=== PATIENT | female | born 1945 | race Asian ===

== ENCOUNTER 2017-04-06 17:01 | Emergency (ER) | payer OTHER ==
[2017-04-06 17:29] VITALS: BP 136/85; PULSE 90; TEMP 98.6; BMI 33.4
[2017-04-06 18:24] LABS: BASOPHIL 0.4 % (0-2.0); EOSINOPHIL 2.2 % (0-4.5); MCH 24.9 pg (25.7-33.7); MCHC 30.8 g/dl (32.0-36.0); MEAN CELL VOLUME 80.9 fl (80-96); MEAN PLT VOLUME 8.4 fl (7.5-11.1); NEUTROPHILS 71.5 % (42.8-82.8); PLATELET COUNT 179 K/MM3 (134-434); RDW 14.4 % (11.6-15.6); WHITE BLOOD COUNT 9.8 K/mm3 (4.0-10.0)
--- NOTE | 2017-04-06 18:25 | PDOC ---
Attending Attestation - Resident Resident Name: Aryan Carlos - ED Attending Attestation I have performed the following: I have examined & evaluated the patient, The case was reviewed & discussed with the resident, I agree w/resident's findings & plan, Exceptions are as noted
--- NOTE | 2017-04-06 18:33 | PDOC ---
History of Present Illness - General Chief Complaint: Syncope/Near Syncope Stated Complaint: SYNCOPE Time Seen by Provider: 04/06/17 17:37 History Source: Patient, Family - History of Present Illness Initial Comments: 04/06/17 18:27 The patient is a 72F with a PMH of CAD s/p stent in 2003, HTN, HLD, DM, and asthma who presents via EMS after a syncopal episode while at the mall earlier today. The patient states that she was shopping and felt lightheaded, then does not recall falling but does recall being woken up. There was no aura before the syncopal episode and she was oriented when she was woken up. SHe states that the only thing she felt was lightheaded. THe patient has not eaten all day except for a very small breakfast. The family states that the patient has been weak for 1 week and fatigued. Her last fall was in 2012. She is not on blood thinners and had LOC+. Surgeries: stent in 2003 ALlergies: NKDA Social: does not smoke, drink, or use recreational drugs Past History - Past Medical History Allergies/Adverse Reactions: Allergies Allergy/AdvReac Type Severity Reaction Status Date / Time No Known Allergies Allergy Verified 04/06/17 17:21 Home Medications: Ambulatory Orders Aspirin [ASA -] 81 mg PO DAILY 12/26/13 Cyanocobalamin [Vitamin B12 -] 2,000 mcg PO DAILY 12/26/13 Metformin HCl [Glucophage] 1,000 mg PO BID 12/26/13 Metoprolol Tartrate [Lopressor -] 25 mg PO DAILY 12/26/13 Ranolazine [Ranexa -] 1,000 mg PO BID 12/26/13 Glipizide 5 mg PO HS 09/04/14 Atorvastatin Ca [Lipitor] 40 mg PO HS #30 tablet 06/29/16 Gabapentin [Neurontin] 0 mg PO ASDIR 06/29/16 Gabapentin [Neurontin] 100 mg PO HS 06/29/16 Glipizide 10 mg PO DAILY 06/29/16 Lisinopril [Zestril] 2.5 mg PO DAILY #30 tablet 06/29/16 Anemia: No Asthma: No Cancer: No Cardiac Disorders: Yes (STENT: 2008) CVA: No COPD: No CHF: No Dementia: No Diabetes: Yes GI Disorders: No Disorders: No HTN: Yes Hypercholesterolemia: Yes Liver Disease: No Seizures: No Thyroid Disease: No - Surgical History Abdominal Surgery: Yes Appendectomy: No Cardiac Surgery: Yes (STENT: 2009) Cholecystectomy: No Lung Surgery: No Neurologic Surgery: No Orthopedic Surgery: No - Psycho/Social/Smoking Cessation Hx Anxiety: No Suicidal Ideation: No Smoking Status: No Smoking History: Never smoked Have you smoked in the past 12 months: No Number of Cigarettes Smoked Daily: 0 Hx Alcohol Use: No Drug/Substance Use Hx: No Substance Use Type: None Hx Substance Use Treatment: No Review of Systems - Review of Systems Able to Perform ROS?: Yes Is the patient limited Gibraltarian proficient: No Constitutional: Yes: Loss of Appetite, Weakness. No: Chills, Fever HEENTM: No: Eye Pain, Blurred Vision, Double Vision Respiratory: No: Shortness of Breath Cardiac (ROS): Yes: Lightheadedness, Syncope. No: Chest Pain ABD/GI: No: Nausea, Vomiting, Other (abd pain) Neurological: Yes: Headache, Weakness. No: Numbness, Tingling *Physical Exam - Vital Signs Last Vital Signs Temp Pulse Resp BP Pulse Ox 98.6 F 90 20 136/85 95 04/06/17 17:21 04/06/17 17:21 04/06/17 17:21 04/06/17 17:21 04/06/17 17:21 - Physical Exam General Appearance: Yes: Nourished, Appropriately Dressed. No: Apparent Distress HEENT: positive: Normal Voice, Hearing Grossly Normal. negative: Pharyngeal Erythema, Tonsillar Exudate, Tonsillar Erythema, Hearing Decreased, Excessive drooling Neck: positive: Trachea midline Respiratory/Chest: positive: Lungs Clear, Normal Breath Sounds. negative: Chest Tender, Respiratory Distress, Accessory Muscle Use Cardiovascular: positive: Regular Rhythm, Regular Rate, S1, S2 Gastrointestinal/Abdominal: positive: Flat, Soft. negative: Tender, Tenderness Extremity: positive: Normal Capillary Refill, Normal Inspection Neurologic: positive: client technologies analyst II-XII NML intact, Fully Oriented, Alert, Normal Mood/ Affect, Normal Response, Motor Strength 5/5, Responsive, Finger to Nose. negative: Numbness, Sensory Deficit, Confused, Disoriented ED Treatment Course - LABORATORY CBC & Chemistry Diagram: 04/06/17 18:08 04/06/17 18:08 Medical Decision Making - Medical Decision Making 04/06/17 18:40 The patient is a 72F with a PMH of CAD s/p 1 stent in 2003, HTN, HLD, DM, and asthma who presents s/p syncopal episode. On the differential is ACS, arrhythmias, intracranial bleeds. My attending has ordered labs and imaging. I will update the patient as results come in. 04/06/17 19:22 Patient signed out to night team (Dr. Soriano).
[2017-04-06 18:49] LABS: INR 0.99 (0.82-1.09); PROTHROMBIN TIME (PATIENT) 10.9 SEC (9.98-11.88)
[2017-04-06 18:56] LABS: ALBUMIN 3.4 g/dl (3.4-5.0); ANION GAP 7 (8-16); BILIRUBIN,TOTAL 0.3 mg/dL (0.2-1.0); CO2 32 mmol/L (21-32); CREATININE 0.6 mg/dL (0.55-1.02); GLUCOSE,RANDOM 150 mg/dL (74-106); SGOT/AST 11 U/L (15-37); SGPT/ALT 15 U/L (12-78); TOT PROT 6.8 g/dl (6.4-8.2)
[2017-04-06 18:59] LABS: ALK PHOS 82 U/L (45-117); TROPONIN I < 0.02 ng/ml (0.00-0.05)
--- NOTE | 2017-04-06 20:36 | PDOC ---
*Physical Exam - Vital Signs Last Vital Signs Temp Pulse Resp BP Pulse Ox 98.6 F 90 20 136/85 95 04/06/17 17:21 04/06/17 17:21 04/06/17 17:21 04/06/17 17:21 04/06/17 17:21 <Nai Lubin - Last Filed: 04/06/17 21:14> - Vital Signs Last Vital Signs Temp Pulse Resp BP Pulse Ox 98.6 F 90 20 136/85 95 04/06/17 17:21 04/06/17 17:21 04/06/17 17:21 04/06/17 17:21 04/06/17 17:21 - Physical Exam Comments: 04/06/17 21:45 General Appearance: Nourished. No Apparent Distress HEENT: No Pharyngeal Erythema, Tonsillar Exudate, Tonsillar Erythema Respiratory/Chest: Lungs Clear, Normal Breath Sounds. No Crackles, Rales, Rhonchi, Wheezing Cardiovascular: Regular Rhythm, Regular Rate. No Murmur, Gallop/S3, Gallop/S4 Gastrointestinal/Abdominal: Normal Bowel Sounds, Soft. No Guarding, Rebound, Tenderness Extremity: Normal Capillary Refill Integumentary: Normal Color, Dry, Warm Neurologic: Fully Oriented, Alert, Normal Mood/Affect, Normal Response <Korey Soriano - Last Filed: 04/06/17 23:29> ED Treatment Course - LABORATORY CBC & Chemistry Diagram: 04/06/17 18:08 04/06/17 18:08 - ADDITIONAL ORDERS Additional order review: Laboratory Results 04/06/17 04/06/17 04/06/17 18:40 18:08 18:08 INR 0.99 Sodium 141 Potassium 3.9 Chloride 102 Carbon Dioxide 32 Anion Gap 7 L BUN 11 D Creatinine 0.6 Creat Clearance w eGFR > 60 POC Glucometer 170.31132 Random Glucose 150 H D Calcium 9.0 Total Bilirubin 0.3 AST 11 L D ALT 15 Alkaline Phosphatase 82 D Creatine Kinase 46 Troponin I < 0.02 Total Protein 6.8 Albumin 3.4 04/06/17 04/06/17 18:40 18:08 RBC 4.92 MCV 80.9 MCHC 30.8 L RDW 14.4 MPV 8.4 Neutrophils % 71.5 Lymphocytes % 21.5 Monocytes % 4.4 Eosinophils % 2.2 Basophils % 0.4 POC Glucometer [phone] - RADIOLOGY Radiology Studies Ordered: Category Date Time Status FACIAL BONES CT W/O CONTRAST [CT] Stat CT Scan 04/06/17 19:[address] WITHOUT CONTRAST [CT] Stat CT Scan 04/06/17 19:55 Completed KNEE 2 POS-LEFT [RAD] Stat Radiology 04/06/17 20:53 Ordered <Nai Lubin - Last Filed: 04/06/17 21:14> - LABORATORY CBC & Chemistry Diagram: 04/06/17 18:08 04/06/17 18:08 - ADDITIONAL ORDERS Additional order review: Laboratory Results 04/06/17 04/06/17 04/06/17 18:40 18:08 18:08 INR 0.99 Sodium 141 Potassium 3.9 Chloride 102 Carbon Dioxide 32 Anion Gap 7 L BUN 11 D Creatinine 0.6 Creat Clearance w eGFR > 60 POC Glucometer 170.86628 Random Glucose 150 H D Calcium 9.0 Total Bilirubin 0.3 AST 11 L D ALT 15 Alkaline Phosphatase 82 D Creatine Kinase 46 Troponin I < 0.02 Total Protein 6.8 Albumin 3.4 04/06/17 04/06/17 18:40 18:08 RBC 4.92 MCV 80.9 MCHC 30.8 L RDW 14.4 MPV 8.4 Neutrophils % 71.5 Lymphocytes % 21.5 Monocytes % 4.4 Eosinophils % 2.2 Basophils % 0.4 POC Glucometer 170.36654 <Korey Soriano - Last Filed: 04/06/17 23:29> Progress Note - Progress Note Progress Note: Received sign out from Dr. Carlos. Patient is a 72 year old female who presents following a near syncopal episode. Patient was out shopping when the patient had the near syncopal episode with a fall to the left knee and face. The patient reports no loss of consciousness and states that she had not eat most of the day. Laboratory work up has been negative thus far and no new changes on EKG. We will follow up on CT head, CT facial, and knee radiograph. <Korey Soriano - Last Filed: 04/06/17 23:29> Medical Decision Making - Medical Decision Making 04/06/17 21:14 Pt seen by myself; we received her on signout. Pt had a near-syncope at the mall today. She went out in a heat wave, and likely strained herself. Her daughter confirms that she was alert and oriented throughout the episode. Pt has DM that is well controlled. HTN is controlled and cholesterol is well maintained with meds. Pt is overweight, and she gets SOB with exertion. No increased SOB or CP today. She had twinges of right sided CP earlier in the week. So far labs are normal, EKG same as old and normal. CXR shows cardiomegaly, but clear lungs. No flank pain and no fever. Pt appears well. She is feeling better. Knee XR pending, 2nd cardiac enzyme pending. <Nai Lubin - Last Filed: 04/06/17 21:14> - Medical Decision Making 04/06/17 21:[address] head and CT facial have been read as unremarkable by the radiologist. We will obtain a second troponin to further rule out ACS. 04/06/17 23:26 Patient's second troponin is negative and preliminary read on knee radiographs demonstrate no acute fractures.We discussed the results with the family and are comfortable discharging the patient home. The patient is agreeable with the plan. <Korey Soriano - Last Filed: 04/06/17 23:29> *DC/Admit/Observation/Transfer <Nai Lubin - Last Filed: 04/06/17 21:14> - Attestations Physician Attestion: 04/06/17 23:26 I, Dr. Korey Soriano, attest that this document has been prepared under my direction and personally reviewed by me in its entirety. I further attest, that it accurately reflects all work, treatment, procedures and medical decision -making performed by me. <Korey Soriano - Last Filed: 04/06/17 23:29> Diagnosis at time of Disposition: Syncope, near - Discharge Dispostion Disposition: HOME Condition at time of disposition: Improved - Referrals Referrals: Yolanda Fajardo MD [Primary Care Provider] - - Patient Instructions Printed Discharge Instructions: DI for Syncope in Adults (Fainting) Additional Instructions: Please return to the ER if you experience concerning or worsening symptoms. Please follow up with your primary care provider to discuss your ER visit. - Post Discharge Activity
[2017-04-06 23:09] LABS: TROPONIN I < 0.02 ng/ml (0.00-0.05)
--- NOTE | 2017-04-09 09:36 | EKG ---
Test Reason : Blood Pressure : / mmHG Vent. Rate : 084 BPM Atrial Rate : 084 BPM P-R Int : 136 ms QRS Dur : 080 ms QT Int : 382 ms P-R-T Axes : 053 009 036 degrees QTc Int : 451 ms NORMAL SINUS RHYTHM NONSPECIFIC ST AND T WAVE ABNORMALITY ABNORMAL ECG WHEN COMPARED WITH ECG OF 29-JUN-2016 08:35, NONSPECIFIC T WAVE ABNORMALITY NOW EVIDENT IN INFERIOR LEADS Confirmed by VANCE HENRIQUEZ, CHRISTIANO ([id number]) on 04/09/2017 9:36:00 AM Referred By: Confirmed By:CHRISTIANO WOODARD MD
== END 2017-04-06 23:48 | disposition home or self-care (01) ==
LOC: JER 17:01
DX: R55 Syncope and collapse (principal)
CPT/HCPCS: 36415; 70450-TC; 70486-TC; 71020-TC; 73560-TC-LT; 80053; 82550; 84484; 85025; 85610; 93005; 93010; 99283-25

== ENCOUNTER 2018-01-12 14:50 | Inpatient (IN) | payer OTHER ==
--- NOTE | 2018-01-12 15:11 | PDOC ---
History of Present Illness - General Chief Complaint: Shortness of Breath Stated Complaint: DIFF. BREATHING Time Seen by Provider: 01/12/18 15:04 - History of Present Illness Initial Comments: 01/12/18 15:11 Patient is a 72 year old female with a PMH of CAD (s/p stent), HTN, HLD, NIDDM and asthma who presents to our ED c/o worsening shortness of breath and cough. Patient states she has been having intermittently productive (whitish sputum) cough for 2-3 weeks with some dyspnea on exertion for 2-3 months. Endorses associated pleuritic chest pain. Patient returned from a trip to [facility] today and daughter brought her to ED for evaluation. As per EMR, patient evaluated in 03/2017 for pre-syncope at which time cardiac enzymes were negative and ECG showed no arrythymia Past History - Past Medical History Allergies/Adverse Reactions: Allergies Allergy/AdvReac Type Severity Reaction Status Date / Time No Known Allergies Allergy Verified 01/12/18 14:54 Home Medications: Ambulatory Orders Albuterol Sulfate Inhaler - [Ventolin HFA Inhaler -] 2 inh PO BID 01/14/18 Glipizide 5 mg PO DAILY 01/14/18 Glipizide 10 mg PO DAILY 01/14/18 Metoprolol Succinate [Toprol Xl] 25 mg PO DAILY 01/14/18 Ranolazine [Ranexa] 500 mg PO Q12H 01/14/18 Albuterol 0.083% Nebulizer Cony [Ventolin 0.083% Nebulizer Soln -] 1 neb NEB Q4H #60 vial 01/17/18 Albuterol 0.083% Nebulizer Cony [Ventolin 0.083% Nebulizer Soln -] 1 neb NEB Q4H #60 vial 01/17/18 Aspirin [ASA -] 81 mg PO DAILY #30 tab.chew 01/17/18 Atorvastatin Ca [Lipitor] 40 mg PO HS #30 tablet 01/17/18 Docusate Sodium [Colace -] 100 mg PO TID capsule 01/17/18 Insulin Detemir [Levemir Flextouch] 15 unit SQ ACBK #30 insuln.pen 01/17/18 Miscellaneous Medical Supply [Outpatient Order] 1 each ASDIR #1 misc Montelukast Na [Singulair -] 10 mg PO HS #30 tablet 01/17/18 Prednisone 40 mg PO DAILY #16 tablet 01/17/18 Anemia: No Asthma: No Cancer: No Cardiac Disorders: Yes (STENT: 2008) CVA: No COPD: No CHF: No Dementia: No Diabetes: Yes GI Disorders: No Disorders: No HTN: Yes Hypercholesterolemia: Yes Liver Disease: No Seizures: No Thyroid Disease: No - Surgical History Abdominal Surgery: Yes Appendectomy: No Cardiac Surgery: Yes (STENT: 2008) Cholecystectomy: No Lung Surgery: No Neurologic Surgery: No Orthopedic Surgery: No - Suicide/Smoking/Psychosocial Hx Smoking Status: No Smoking History: Never smoked Have you smoked in the past 12 months: No Number of Cigarettes Smoked Daily: 0 Hx Alcohol Use: No Drug/Substance Use Hx: No Substance Use Type: None Hx Substance Use Treatment: No Review of Systems - Review of Systems Constitutional: No: Chills, Fever HEENTM: No: Recent change in vision Respiratory: Yes: Shortness of Breath, Productive cough Cardiac (ROS): No: Lightheadedness, Palpitations, Syncope ABD/GI: No: Constipated, Diarrhea, Nausea, Vomiting : No: Burning, Dysuria *Physical Exam - Vital Signs Last Vital Signs Temp Pulse Resp BP Pulse Ox 98.4 F 94 H 24 142/48 92 L 01/12/18 14:54 01/12/18 14:54 01/12/18 14:54 01/12/18 14:54 01/12/18 14:54 - Physical Exam Comments: 01/12/18 16:26 GENERAL: The patient is in no acute distress. EYES: PERRLA, EOMI, sclera anicteric, conjunctiva clear. ENT: Ears normal, nares patent, oropharynx clear without exudates. Moist mucous membranes. NECK: Normal range of motion, supple without lymphadenopathy, JVD, or masses. LUNGS: Insp and Expiratory wheezing noted, exp rhonchi HEART: Regular rate and rhythm, normal S1 and S2 without murmur, rub or gallop. ABDOMEN: Soft, nontender EXTREMITIES: Bilateral lower extremity edema, RLE pitting edema SKIN: Warm, Dry, normal turgor, no rashes or lesions noted. ED Treatment Course - LABORATORY CBC & Chemistry Diagram: 01/17/18 05:35 01/17/18 05:35 Medical Decision Making - Medical Decision Making 01/12/18 16:59 72 year old female presents with hypoxia, cough and progressively worsening AVERY. H/o recent extended air travel. Fluid overloaded and hypoxic on PE. Frontal diagnosis: r/o PE, r/o ACS, pleural effusion, PNA, bronchitis. Will obtain CTA chest, basic labs, ECG, Troponin. Reassess. 01/12/18 17:49 BNP 1400 (250 in 2016). Will consider presumptive treat for PE w/Lovenox while pending CTA pending CXR showing no pleural effusion ECG shows NSR HR 84, no deviations, normal intervals, with TWI in V1-V3, no TERESSA/ STD, c/w previous ECG of 2016. 01/12/18 17:49 Troponin (-) x1. Patient remains SpO2 > 95% on 2 L NC. 01/12/18 20:45 CT negative for PE. Patient remains SpO2 > 95% on 2 L NC. Steroids + Mg. Hospitalist paged for admission for acute asthma exacerbation. *DC/Admit/Observation/Transfer Diagnosis at time of Disposition: Shortness of breath - Discharge Dispostion Condition at time of disposition: Good - Prescriptions - Referrals - Patient Instructions - Post Discharge Activity
[2018-01-12] MEDS ORDERED: ALBUTEROL SO4 2.5/IPRATROPIUM 0.5 INH SOL 3 ML VIAL.NEB. NEB ONE ×3 (15:22→17:47)
--- NOTE | 2018-01-12 15:51 | PDOC ---
Attending Attestation - Resident Resident Name: Anita Cartagenaica - ED Attending Attestation I have performed the following: I have examined & evaluated the patient, The case was reviewed & discussed with the resident, I agree w/resident's findings & plan, Exceptions are as noted - HPI HPI: 01/12/18 15:45 Ms Gutiérrez is a 72 yo F with a history of hx CAD s/p stent 2004, HTN, HL, DM, h/ o asthma (per chart) Pt presents to the ER with a complaint of shortness of breath Pt returned from her trip to [place] today She notes shortness of breath, dyspnea on exertion, left-sided chest pain. Symptoms began prior to her [place] [facility] [place] She denies fevers or chills. She denies sputum production. She denies nausea, vomiting, diarrhea. - Physicial Exam PE: 01/12/18 15:47 GENERAL: The patient is in no acute distress. EYES: PERRLA, EOMI, sclera anicteric, conjunctiva clear. ENT: Ears normal, nares patent, oropharynx clear without exudates. Moist mucous membranes. NECK: Normal range of motion, supple without lymphadenopathy, JVD, or masses. LUNGS: Insp and Expiratory wheezing noted, exp rhonchi HEART: Regular rate and rhythm, normal S1 and S2 without murmur, rub or gallop. ABDOMEN: Soft, nontender EXTREMITIES: Bilateral lower extremity edema, RLE pitting edema NEUROLOGICAL: Cranial nerves II through XII grossly intact. Normal speech. No focal neurological deficits. MUSCULOSKELETAL: Back non-tender to palpation SKIN: Warm, Dry, normal turgor, no rashes or lesions noted. - Medical Decision Making 01/12/18 15:49 Ms Gutiérrez presents emergency department with a complaint of shortness of breath. Vital signs are notable for O2 saturation of 93%. She just got off an airplane from [facility] Differential diagnosis includes but is not limited to: PE, Pneumonia, Bronchitis with Bronchospasm, Asthma exacerbation, CHF Will do: Labs EKG CTA Pt receiving nebs, will continue as she states this has helped her signed out to Dr Rosas Anticipate admission
[2018-01-12 16:17] LABS: BASO % 0.4 % (0-2.0); EOS % 2.6 % (0-4.5); HEMATOCRIT 35.4 % (32.4-45.2); HEMOGLOBIN 11.3 GM/dL (10.7-15.3); LYMPH % 23.8 % (8-40); MCH 25.4 pg (25.7-33.7); MCHC 32.1 g/dl (32.0-36.0); MEAN PLT VOLUME 8.7 fl (7.5-11.1); MONO % 7.7 % (3.8-10.2); NEUT % 65.5 % (42.8-82.8); PLATELET COUNT 164 K/MM3 (134-434); RBC 4.47 M/mm3 (3.60-5.2)
[2018-01-12] MEDS ORDERED: ACETAMINOPHEN 1000 MG/100 ML VIAL (NON FORMULARY) IVPB ONE (16:17)
[2018-01-12] MEDS ORDERED: ACETAMINOPHEN INJECTION 100 ML IVPB ONE (16:32)
[2018-01-12 17:38] LABS: ANION GAP 5 (8-16); BILIRUBIN,TOTAL 0.5 mg/dL (0.2-1.0); BLOOD UREA NITROGEN 14 mg/dL (7-18); CALCIUM 7.9 mg/dL (8.5-10.1); CHLORIDE 101 mmol/L (98-107); CO2 32 mmol/L (21-32); CREATININE 0.6 mg/dL (0.55-1.02); GLUCOSE,RANDOM 279 mg/dL (74-106); POTASSIUM 3.8 mmol/L (3.5-5.1); SGOT/AST 16 U/L (15-37); SGPT/ALT 31 U/L (12-78); SODIUM 138 mmol/L (136-145); TOT PROT 6.3 g/dl (6.4-8.2)
[2018-01-12 17:40] LABS: ALK PHOS 85 U/L (45-117)
[2018-01-12] MEDS ORDERED: MAGNESIUM SULF 50% (8.12 MEQ/2 ML-1 GM VIAL) IVPB ONE (20:44)
[2018-01-12] MEDS ORDERED: methylPREDNISolone NA SUCC 125 MG/2 ML VIAL IVPUSH ONE (20:44)
--- NOTE | 2018-01-12 20:53 | PN ---
Teaching Attending Note Name of Resident: Heydi Root ATTENDING PHYSICIAN STATEMENT I saw and evaluated the patient. I reviewed the resident's note and discussed the case with the resident. I agree with the resident's findings and plan as documented. SUBJECTIVE: 72 y/o F presented with SOB and wheezing, PMH of asthma and recent travel to [place]. In ED PE r/o with CTA OBJECTIVE: Alert and oriented times 3 in mild distress HEENT: NC, PERRLA, EOMI, MMM CVS: RRR, S1, S2, no JVD LUNGS: B/l wheezes and bibasilar crepitation Abd: obese, nontender, BS+ Ext: nl rom, 2+ pulse. CBCD WBC 8.0 K/mm3 (4.0-10.0) 01/12/18 16:09 RBC 4.47 M/mm3 (3.60-5.2) 01/12/18 16:09 Hgb 11.3 GM/dL (10.7-15.3) 01/12/18 16:09 Hct 35.4 % (32.4-45.2) 01/12/18 16:09 MCV 79.0 fl (80-96) L 01/12/18 16:09 MCHC 32.1 g/dl (32.0-36.0) 01/12/18 16:09 RDW 16.0 % (11.6-15.6) H D 01/12/18 16:09 Plt Count 164 K/MM3 (134-434) 01/12/18 16:09 MPV 8.7 fl (7.5-11.1) 01/12/18 16:09 CMP Sodium 138 mmol/L (136-145) 01/12/18 16:57 Potassium 3.8 mmol/L (3.5-5.1) 01/12/18 16:57 Chloride 101 mmol/L (98-107) 01/12/18 16:57 Carbon Dioxide 32 mmol/L (21-32) 01/12/18 16:57 Anion Gap 5 (8-16) L 01/12/18 16:57 BUN 14 mg/dL (7-18) 01/12/18 16:57 Creatinine 0.6 mg/dL (0.55-1.02) 01/12/18 16:57 Creat Clearance w eGFR > 60 (>60) 01/12/18 16:57 Random Glucose 279 mg/dL (74-106) H 01/12/18 16:57 Calcium 7.9 mg/dL (8.5-10.1) L 01/12/18 16:57 Total Bilirubin 0.5 mg/dL (0.2-1.0) D 01/12/18 16:57 AST 16 U/L (15-37) 01/12/18 16:57 ALT 31 U/L (12-78) 01/12/18 16:57 Alkaline Phosphatase 85 U/L (45-117) 01/12/18 16:57 Total Protein 6.3 g/dl (6.4-8.2) L 01/12/18 16:57 Albumin 3.0 g/dl (3.4-5.0) L 01/12/18 16:57 CARDIAC ENZYMES Creatine Kinase 55 IU/L (26-192) 01/12/18 16:57 Troponin I 0.04 ng/ml (0.00-0.05) 01/12/18 16:57 ASSESSMENT AND PLAN: Dyspnea and cough, admitted for acute asthma exacerbation with new onset CHF. PF 140. Daily peak flow, nebs q6h, solumedrol 40mg h6h amd continue home medication. Get ECHO, and give lasix 40mg stat, lipid panel. Monitor I&Os. cardiac diet. Problem List - Problems (1) Asthma Code(s): J45.909 - UNSPECIFIED ASTHMA, UNCOMPLICATED (2) CHF (congestive heart failure) Code(s): I50.9 - HEART FAILURE, UNSPECIFIED
[2018-01-12] MEDS ORDERED: MAGNESIUM SULF 50% (8.12 MEQ/2 ML-1 GM VIAL) ONE (21:48)
[2018-01-12] MEDS ORDERED: methylPREDNISolone NA SUCC 125 MG/2 ML VIAL ONE (21:54)
[2018-01-12] MEDS ORDERED: ALBUTEROL SO4 0.083% IH SOL 2.5 MG/3 ML VIAL.NEB. NEB PRN (22:18)
--- NOTE | 2018-01-12 22:32 | HP ---
Addendum entered and electronically signed by Ravi Quezada, RESIDENT 01/13/18 06:04: Ct angio was negative for pe Addendum entered and electronically signed by Ravi Quezada, RESIDENT 01/13/18 00:56: Daughter called back to confirm the list of medications. Please give a call to pharmacy to double confirm the list of medication as it looks like some medications are missing and daughter was not sure if she taking lisinopril and statin. Metoprolol succinate 25 daily Glipizide 10mg in morning and 5mg in evening Metformin 1000mg bid ranexa 50mg bid aspirin 81 Original Note: CHIEF COMPLAINT: sob HISTORY OF PRESENT ILLNESS: 72 y/o f with past medical h/o asthma and cad came to hospital because of sob. patient states that she has noticed sob, wheezing and cough from last two week which is progressively increasing. before able to walk 1 block but from 2 days only 5 feet, denies orthopnea, paroxysmal nocturnal dyspnea, has reported mild increse in swelling in legs. States wheezing has also increased in last two days. Reports cough has also increased in last two days, produces white phlem, no fever, no chills, no chest pain. States she is complaint with her inhalers and has used it many times in last 2 days but it didn't help. Also report asthma exabration last year for which she was admitted in hospital, has no pets, not allergic to any thing. Patient states that today she came back from [facility] [place]. ER course was notable for: (1)cbc, cmp, bnp (2)CTA chest (3) Recent Travel: yes, [facility] PAST MEDICAL HISTORY: HTN, HLD, NIDDM,asthma, cad PAST SURGICAL HISTORY: hystrectomy 6 years ago Social History: Smoking: no Alcohol: no Drugs: no Family History: not relevant Allergies No Known Allergies Allergy (Verified 01/12/18 14:54) HOME MEDICATIONS: Home Medications Medication Instructions Recorded Aspirin [ASA -] 81 mg PO DAILY 12/26/13 Cyanocobalamin [Vitamin B12 -] 2,000 mcg PO DAILY 12/26/13 Metformin HCl [Glucophage] 1,000 mg PO BID 12/26/13 Metoprolol Tartrate [Lopressor -] 25 mg PO DAILY 12/26/13 Ranolazine [Ranexa -] 1,000 mg PO BID 12/26/13 Glipizide 5 mg PO HS 09/04/14 Atorvastatin Ca [Lipitor] 40 mg PO HS #30 tablet 06/29/16 Gabapentin [Neurontin] 0 mg PO ASDIR 06/29/16 Gabapentin [Neurontin] 100 mg PO HS 06/29/16 Glipizide 10 mg PO DAILY 06/29/16 Lisinopril [Zestril] 2.5 mg PO DAILY #30 tablet 06/29/16 REVIEW OF SYSTEMS CONSTITUTIONAL: Absent: fever, chills, diaphoresis, generalized weakness, malaise, loss of appetite, weight change HEENT: Absent: rhinorrhea, nasal congestion, throat pain, throat swelling, difficulty swallowing, mouth swelling, ear pain, eye pain, visual changes CARDIOVASCULAR: Absent: chest pain, syncope, palpitations, irregular heart rate, lightheadedness , peripheral edema RESPIRATORY: Absent: cough, shortness of breath, dyspnea with exertion, orthopnea, wheezing, stridor, hemoptysis GASTROINTESTINAL: Absent: abdominal pain, abdominal distension, nausea, vomiting, diarrhea, constipation, melena, hematochezia GENITOURINARY: Absent: dysuria, frequency, urgency, hesitancy, hematuria, flank pain, genital pain MUSCULOSKELETAL: Absent: myalgia, arthralgia, joint swelling, back pain, neck pain SKIN: Absent: rash, itching, pallor HEMATOLOGIC/IMMUNOLOGIC: Absent: easy bleeding, easy bruising, lymphadenopathy, frequent infections ENDOCRINE: Absent: unexplained weight gain, unexplained weight loss, heat intolerance, cold intolerance NEUROLOGIC: Absent: headache, focal weakness or paresthesias, dizziness, unsteady gait, seizure, mental status changes, bladder or bowel incontinence PSYCHIATRIC: Absent: anxiety, depression, suicidal or homicidal ideation, hallucinations. PHYSICAL EXAMINATION Vital Signs - 24 hr 01/12/18 01/12/18 01/12/18 14:54 15:35 22:12 Temperature 98.4 F 98.0 F Pulse Rate 94 H 82 Pulse Rate [ 85 Apical] Respiratory 24 16 Rate Blood Pressure 142/48 Blood Pressure 120/78 [Left Arm] O2 Sat by Pulse 92 L 98 98 Oximetry (%) 01/12/18 01/12/18 22:14 22:15 Temperature 98.0 F Pulse Rate 90 Pulse Rate [ 81 Apical] Respiratory 16 Rate Blood Pressure Blood Pressure 120/72 [Left Arm] O2 Sat by Pulse 99 95 Oximetry (%) GENERAL: Awake, alert, and fully oriented, in no acute distress. HEAD: Normal with no signs of trauma. EARS, NOSE, THROAT: Moist mucous membranes. NECK: Normal range of motion, supple without lymphadenopathy, JVD, or masses. LUNGS: Breath sounds equal,b/l diffuse wheez, b/l diffuse inspiratory crackels HEART: Regular rate and rhythm, normal S1 and S2 ABDOMEN: Soft, nontender, not distended, normoactive bowel sounds, no guarding, no rebound, no masses. MUSCULOSKELETAL: Normal range of motion at all joints. No bony deformities or tenderness. UPPER EXTREMITIES: 2+ pulses, warm, well-perfused. No cyanosis. No clubbing. No peripheral edema. LOWER EXTREMITIES: No calf tenderness. peripheral edema present NEUROLOGICAL: Cranial nerves II-XII intact. PSYCHIATRIC: Cooperative. SKIN: Warm, dry, Laboratory Results - last 24 hr 01/12/18 01/12/18 01/12/18 16:09 16:09 16:09 WBC 8.0 RBC 4.47 Hgb 11.3 Hct 35.4 MCV 79.0 L MCH 25.4 L MCHC 32.1 RDW 16.0 H D Plt Count 164 MPV 8.7 Neutrophils % 65.5 Lymphocytes % 23.8 Monocytes % 7.7 Eosinophils % 2.6 Basophils % 0.4 Sodium Cancelled Potassium Cancelled Chloride Cancelled Carbon Dioxide Cancelled Anion Gap Cancelled BUN Cancelled Creatinine Cancelled Creat Clearance w eGFR Cancelled Random Glucose Cancelled Calcium Cancelled Total Bilirubin Cancelled AST Cancelled ALT Cancelled Alkaline Phosphatase Cancelled Creatine Kinase Cancelled Troponin I Cancelled B-Natriuretic Peptide Cancelled Total Protein Cancelled Albumin Cancelled 01/12/18 01/12/18 16:57 16:57 WBC RBC Hgb Hct MCV MCH MCHC RDW Plt Count MPV Neutrophils % Lymphocytes % Monocytes % Eosinophils % Basophils % Sodium 138 Potassium 3.8 Chloride 101 Carbon Dioxide 32 Anion Gap 5 L BUN 14 Creatinine 0.6 Creat Clearance w eGFR > 60 Random Glucose 279 H Calcium 7.9 L Total Bilirubin 0.5 D AST 16 ALT 31 Alkaline Phosphatase 85 Creatine Kinase 55 Troponin I 0.04 B-Natriuretic Peptide 1400.12 H Total Protein 6.3 L Albumin 3.0 L ASSESSMENT/PLAN: 72 y/o f with past medical h/o asthma and cad came to hospital because of sob. Shortness of breath likely from [place] exabration and chf. patient has diffuse wheeze, inspiratory crackels b/l diffuse, pitting edema, moist tongue, h/o cad with elevated bnp, gained 30 pounds since march 2017. duoneb q6h albuterol q4h prn soulmedrol 60 q8h montelucast 10mg daily got mag in er. echo lasix 40iv daily daily weight I/O monitor low salt diet. cardio and pulm consult. HTN start home meds HLD start home meds DM bgm novalog sliding scale h/o CAD continue aspirin 81 daILY FLUID: orally allowed electrolyte: in am nutrition low salt diet dvt pro: heparin sq gi pro not required tried calling [id number] it was closed. Daughter states that she will go home and give us a list of medications. dispo: admit tele Visit type - Emergency Visit Emergency Visit: Yes Care time: The patient presented to the Emergency Department on the above date and was hospitalized for further evaluation of their emergent condition. - New Patient This patient is new to me today: Yes Date on this admission: 01/12/18 - Critical Care Critical Care patient: No
[2018-01-12] MEDS: ALBUTEROL SO4 2.5/IPRATROPIUM 0.5 INH SOL 3 ML VIAL.NEB. NEB SCH (23:14)
[2018-01-13 01:27] VITALS: BMI 39.4
[2018-01-13] MEDS: methylPREDNISolone NA SUCC 125 MG/2 ML VIAL IVPUSH SCH ×3 (01:44→18:46)
[2018-01-13] MEDS: HEPARIN NA (PORCINE) 5,000 UNITS/ML 1ML VIAL SQ SCH ×3 (06:50→21:08)
[2018-01-13] MEDS: INSULIN SLIDING SCALE (NOVOLOG) 1 VIAL SQ SCH ×4 (07:11→21:08)
[2018-01-13 07:26] LABS: BASO % 0.1 % (0-2.0); EOS % 0.1 % (0-4.5); HEMATOCRIT 34.8 % (32.4-45.2); HEMOGLOBIN 11.1 GM/dL (10.7-15.3); LYMPH % 10.6 % (8-40); MCH 25.5 pg (25.7-33.7); MCHC 31.8 g/dl (32.0-36.0); MEAN PLT VOLUME 8.4 fl (7.5-11.1); MONO % 1.3 % (3.8-10.2); NEUT % 87.9 % (42.8-82.8); PLATELET COUNT 171 K/MM3 (134-434); RBC 4.35 M/mm3 (3.60-5.2); RDW 15.9 % (11.6-15.6); WHITE BLOOD COUNT 6.9 K/mm3 (4.0-10.0)
[2018-01-13 07:55] LABS: CHLORIDE 98 mmol/L (98-107); POTASSIUM 5.3 mmol/L (3.5-5.1); SODIUM 135 mmol/L (136-145)
[2018-01-13 08:04] LABS: ALK PHOS 102 U/L (45-117); ANION GAP 6 (8-16); BILIRUBIN,TOTAL 0.6 mg/dL (0.2-1.0); BLOOD UREA NITROGEN 16 mg/dL (7-18); CALCIUM 8.2 mg/dL (8.5-10.1); CHOLESTEROL 149 mg/dL (50-200); CO2 31 mmol/L (21-32); CREATININE 0.7 mg/dL (0.55-1.02); HDL CHOLESTEROL 48 mg/dL (40-60); MAGNESIUM 2.5 mg/dL (1.8-2.4); PHOSPHOROUS 4.5 mg/dL (2.5-4.9); SGOT/AST 26 U/L (15-37); SGPT/ALT 42 U/L (12-78); TOT PROT 6.7 g/dl (6.4-8.2); TRIGLYCERIDES 91 mg/dL (35-160)
[2018-01-13] MEDS: ALBUTEROL SO4 2.5/IPRATROPIUM 0.5 INH SOL 3 ML VIAL.NEB. NEB SCH ×4 (08:36→20:16)
[2018-01-13] MEDS: RANOLAZINE E.R. 500 MG TABLET (FP) PO SCH ×2 (09:07→21:08)
[2018-01-13] MEDS: metoPROLOL SUCCINATE 25 MG TAB.SR.24H (FP) PO SCH (09:07)
[2018-01-13] MEDS: ASPIRIN 81 MG CHEWABLE TABLETS PO SCH (09:07)
[2018-01-13] MEDS: FUROSEMIDE 40 MG/4 ML INJECTABLE VIAL IVPUSH SCH (09:07)
--- NOTE | 2018-01-13 09:18 | EKG ---
Test Reason : Blood Pressure : / mmHG Vent. Rate : 083 BPM Atrial Rate : 083 BPM P-R Int : 130 ms QRS Dur : 078 ms QT Int : 392 ms P-R-T Axes : 045 007 019 degrees QTc Int : 460 ms NORMAL SINUS RHYTHM NONSPECIFIC T WAVE ABNORMALITY ABNORMAL ECG WHEN COMPARED WITH ECG OF 06-APR-2017 18:25, NO SIGNIFICANT CHANGE WAS FOUND Confirmed by CHRISTIANO WOODARD MD ([id number]) on 01/13/2018 9:17:52 AM Referred By: Confirmed By:CHRISTIANO WOODARD MD
[2018-01-13] MEDS ORDERED: LISINOPRIL 5 MG TABLET (FP) PO SCH (10:00)
[2018-01-13] MEDS ORDERED: METOPROLOL TARTRATE 25 MG TABLET (FP) PO SCH (10:00)
[2018-01-13] MEDS ORDERED: FUROSEMIDE 40 MG/4 ML INJECTABLE VIAL IVPUSH SCH (10:00)
[2018-01-13 10:11] LABS: GLUCOSE,RANDOM 449 mg/dL (74-106)
--- NOTE | 2018-01-13 11:26 | CON.PULM ---
Consult Consult Specialty:: PULMONARY Referred by:: Dr. Hurt Reason for Consultation:: shortness of breath - History of Present Illness Chief Complaint: shortness of breath History of Present Illness: 72yo female with h/o HTN, DM, hyperlipidemia, CAD, asthma who was admitted with worsening shortness of breath x 4-5 days. Recently came back from a trip. Some chest discomfort associated with coughing and wheezing. +cough mostly nonproductive. No fevers, chills or sweats. No sick contacts. Asthma normally well controlled. Takes Symbicort as needed, does not take it every day. She is a never smoker. Has never been hospitalized for asthma. CTA chest was done in the ER which did not show any evidence of PE. - History Source History Provided By: Patient, Medical Record Limitations to Obtaining History: Language Barrier - Past Medical History Cardio/Vascular: Yes: HTN, Hyperlipdemia Pulmonary: Yes: Other (?hx asthma) Psych: Yes: Anxiety Musculoskeletal: Yes: Chronic low back pain Endocrine: Yes: Diabetes Mellitus - Alcohol/Substance Use Hx Alcohol Use: No - Smoking History Smoking history: Never smoked Have you smoked in the past 12 months: No Aproximately how many cigarettes per day: 0 Home Medications - Allergies Allergies/Adverse Reactions: Allergies Allergy/AdvReac Type Severity Reaction Status Date / Time No Known Allergies Allergy Verified 01/12/18 14:54 Review of Systems - Review of Systems Constitutional: denies: Chills, Fever Eyes: denies: Recent Change in Vision HENT: denies: Nasal Congestion, Throat Pain Neck: denies: Stiffness, Tenderness Cardiovascular: reports: Chest Pain, Shortness of Breath. denies: Edema, Palpitations Respiratory: reports: Cough, SOB on Exertion, Wheezing. denies: Hemoptysis Gastrointestinal: denies: Abdominal Pain, Nausea, Vomiting Genitourinary: denies: Dysuria, Hematuria Neurological: denies: Dizziness, Headache Endocrine: denies: Unexplained Weight Gain, Unexplained Weight Loss Physical Exam Vital Sings: Vital Signs Temperature 97.6 F 01/13/18 07:57 Pulse Rate 86 01/13/18 07:57 Respiratory Rate 20 01/13/18 08:00 Blood Pressure 134/75 01/13/18 07:57 O2 Sat by Pulse Oximetry (%) 95 01/13/18 08:00 Constitutional: Yes: Calm Eyes: Yes: Conjunctiva Clear, EOM Intact HENT: Yes: Atraumatic, Normocephalic Neck: Yes: Supple, Trachea Midline Cardiovascular: Yes: Regular Rate and Rhythm Respiratory: Yes: Poor Air Entry, Rhonchi, Wheezes ...Clubbing: No Gastrointestinal: Yes: Normal Bowel Sounds, Soft. No: Tenderness Edema: No Neurological: Yes: Alert, Oriented Labs: CBC, BMP 01/13/18 07:04 01/13/18 07:04 Imaging - Results Chest X-ray: Report Reviewed, Image Reviewed Cat Scan: Report Reviewed, Image Reviewed (no infiltrates) Problem List - Problems (1) Acute asthma exacerbation Code(s): J45.901 - UNSPECIFIED ASTHMA WITH (ACUTE) EXACERBATION (2) Diabetes Code(s): E11.9 - TYPE 2 DIABETES MELLITUS WITHOUT COMPLICATIONS (3) HTN (hypertension) Code(s): I10 - ESSENTIAL (PRIMARY) HYPERTENSION (4) Hyperlipidemia Code(s): E78.5 - HYPERLIPIDEMIA, UNSPECIFIED Assessment/Plan Acute Asthma Exacerbation CAD HTN DM Hyperlipidemia - IV medrol - inhaled bronchodilators standing and PRN - singulair - monitor peak flow - glucose control while on systemic steroids - O2 as needed - DVT prophylaxis Thank you for this consult Pal Oneil MD
--- NOTE | 2018-01-13 12:32 | CON.CARD ---
Consult Consult Specialty:: Cardiology Referred by:: Yolanda Fajardo MD Reason for Consultation:: CAD post PCI - History of Present Illness Chief Complaint: Dyspnea History of Present Illness: Coverage for Dr. Chaidez: Reason for Consultation:: chest pain; hx CAD--coronary PCI; DM 72yo female with h/o HTN, DM, hyperlipidemia, CAD s/p stent x1, asthma, morbid obesity admitted with worsening shortness of breath x 4-5 days associated with chest discomfort associated with coughing and wheezing. +cough mostly nonproductive, but denies angina. No fevers, chills or sweats. No sick contacts. Asthma normally well controlled. Takes Symbicort as needed, does not take it every day. She is a never smoker. Has never been hospitalized for asthma. CTA chest was done in the ER which did not show any evidence of PE, feels improved with nebulizer treatment. ; - History Source History Provided By: Patient Limitations to Obtaining History: No Limitations - Past Medical History Cardio/Vascular: Yes: HTN, Hyperlipdemia Pulmonary: Yes: Other (?hx asthma) Psych: Yes: Anxiety Musculoskeletal: Yes: Chronic low back pain Endocrine: Yes: Diabetes Mellitus - Alcohol/Substance Use Hx Alcohol Use: No - Smoking History Smoking history: Never smoked Have you smoked in the past 12 months: No Aproximately how many cigarettes per day: 0 Home Medications - Allergies Allergies/Adverse Reactions: Allergies Allergy/AdvReac Type Severity Reaction Status Date / Time No Known Allergies Allergy Verified 01/12/18 14:54 Review of Systems - Review of Systems Cardiovascular: reports: Chest Pain, Shortness of Breath Respiratory: reports: Wheezing Vital Signs: Vital Signs Temperature 97.6 F 01/13/18 07:57 Pulse Rate 86 01/13/18 07:57 Respiratory Rate 20 01/13/18 08:00 Blood Pressure 134/75 01/13/18 07:57 O2 Sat by Pulse Oximetry (%) 95 01/13/18 08:00 Constitutional: Yes: No Distress, Calm Neck: Yes: Supple Respiratory: Yes: Regular, Diminished, On Nasal O2 Gastrointestinal: Yes: Normal Bowel Sounds, Soft, Abdomen, Obese Cardiovascular: Yes: Regular Rate and Rhythm JVD: No Carotid Bruit: No Heart Sounds: Yes: S1, S2 Edema: No - Other Data Labs, Other Data: CBC, BMP 01/13/18 07:04 01/13/18 07:04 Troponin, BNP 01/12/18 01/12/18 01/12/18 16:09 16:09 16:57 Troponin I Cancelled B-Natriuretic Peptide Cancelled 1400.12 H 01/12/18 16:57 Troponin I 0.04 B-Natriuretic Peptide Troponin, BNP 01/12/18 01/12/18 01/12/18 16:09 16:09 16:57 Troponin I Cancelled B-Natriuretic Peptide Cancelled 1400.12 H 01/12/18 16:57 Troponin I 0.04 B-Natriuretic Peptide NSR @ 83 Ejection Fraction %: LVEF > or = 40 % Imaging - Results Chest X-ray: Report Reviewed (NAD) Cat Scan: Report Reviewed (Chest CTA - Neg for PE) Problem List - Problems (1) Acute asthma exacerbation Code(s): J45.901 - UNSPECIFIED ASTHMA WITH (ACUTE) EXACERBATION Qualifiers: Asthma severity: moderate (2) CHF (congestive heart failure) Code(s): I50.9 - HEART FAILURE, UNSPECIFIED Qualifiers: Heart failure type: diastolic Heart failure chronicity: acute on chronic Qualified Code(s): I50.33 - Acute on chronic diastolic (congestive) heart failure (3) Atypical chest pain Code(s): R07.89 - OTHER CHEST PAIN (4) Diabetes Code(s): E11.9 - TYPE 2 DIABETES MELLITUS WITHOUT COMPLICATIONS Qualifiers: Diabetes mellitus type: type 2 (5) HTN (hypertension) Code(s): I10 - ESSENTIAL (PRIMARY) HYPERTENSION Qualifiers: Hypertension type: essential hypertension Qualified Code(s): I10 - Essential (primary) hypertension (6) Hyperlipidemia Code(s): E78.5 - HYPERLIPIDEMIA, UNSPECIFIED Qualifiers: Hyperlipidemia type: pure hypercholesterolemia Qualified Code(s): E78.00 - Pure hypercholesterolemia, unspecified; E78.0 - Pure hypercholesterolemia (7) Obese Code(s): E66.9 - OBESITY, UNSPECIFIED Assessment/Plan 06/29/2016 Echo: Normal biventricular size and fxn, mild TR 06/29/2016 Nuc Stress: No ischemia, LVEF 82% 1. Acute Asthma Exacerbation with atypical chest pain 2. CAD s/p PCI (stent), angina pectoris 3. HTN 4. DM not at goal control 5. Hyperlipidemia 6. Diastolic dysfunction 7. Hyperkalemia P:1. IV medrol, inhaled bronchodilators standing and PRN, singulair, monitor peak flow, O2 as needed, 2. Continue ASA 81 qd, Lipitor 40 qd, Ranexa 500 bid, Toprol XL 25 qd, ideally resume lisinopril for renovascular protection once hyperkalemia resolves 3. Diuresis with monitor diuretic response, renal function and electrolytes 4. F/u echocardiogram ordered 5. Thank you for consultative opportunity
--- NOTE | 2018-01-13 14:52 | PN ---
Teaching Attending Note Name of Resident: Abner Hurt SUBJECTIVE: Patient seen and examined. Breathing with some improvement. no recent URI like illness, leg swelling or weight gain. Rather reports weight loss. OBJECTIVE: Vital Signs Period Temp Pulse Resp BP Sys/Fong Pulse Ox Last 24 Hr 97.6 F-98.7 F 81-90 16-20 120-142/59-78 95-99 Intake & Output 01/10/18 01/11/18 01/12/18 01/13/18 23:59 23:59 23:59 23:59 Intake Total 10 Balance 10 Weight 188 lb 12.8 oz General: sitting in bed in mild respiratory distress, no use of acessory muscles of respiration CVS;S1S2 regular Chest; bilateral extensive wheezing, decreased air entry Abdomen:soft, obese, NT Extremities: no pedal edema Active Medications Generic Name Dose Route Start Last Admin Trade Name Freq PRN Reason Stop Dose Admin Albuterol Sulfate 1 amp 01/12/18 22:18 Ventolin 0.083% Nebulizer Soln - NEB Q4H PRN ASTHMA Albuterol/Ipratropium 1 amp 01/12/18 22:30 01/13/18 11:54 Duoneb - NEB 1 amp RQID STEVEN Administration Aspirin 81 mg 01/13/18 10:00 01/13/18 09:07 Asa - PO 81 mg DAILY STEVEN Administration Atorvastatin Calcium 40 mg 01/13/18 22:00 Lipitor - PO HS STEVEN Furosemide 40 mg 01/12/18 22:21 01/13/18 09:07 Lasix Injection - IVPUSH 40 mg DAILY STEVEN Administration Heparin Sodium (Porcine) 5,000 unit 01/13/18 06:00 01/13/18 14:49 Heparin - SQ 5,000 unit TID STEVEN Administration Insulin Aspart 1 vial 01/13/18 07:00 01/13/18 11:58 Novolog Vial Sliding Scale - SQ 12 units ACHS STEVEN Administration Protocol Insulin Aspart 6 units 01/13/18 15:00 Novolog Vial SQ 01/13/18 15:01 ONCE ONE Protocol Insulin Detemir 10 units 01/13/18 15:01 Levemir Vial SQ 01/13/18 15:02 ONCE ONE Insulin Detemir 15 units 01/14/18 07:00 Levemir Vial SQ ACBK STEVEN Methylprednisolone Sodium Succinate 60 mg 01/13/18 02:00 04/29/18 09:06 Solu-Medrol - IVPUSH 60 mg Q8H-IV STEVEN Administration Metoprolol Succinate 25 mg 01/13/18 10:00 01/13/18 09:07 Toprol Xl - PO 25 mg DAILY STEVEN Administration Montelukast Sodium 10 mg 01/13/18 22:00 Singulair - PO HS STEVEN Ranolazine 500 mg 01/13/18 10:00 01/13/18 09:07 Ranexa - PO 500 mg BID STEVEN Administration Sodium Polystyrene Sulfonate 15 gm 01/13/18 14:40 Kayexalate - PO 01/13/18 14:41 ONCE ONE Laboratory Results - last 24 hr 01/12/18 01/12/18 01/12/18 16:09 16:09 16:09 WBC 8.0 RBC 4.47 Hgb 11.3 Hct 35.4 MCV 79.0 L MCH 25.4 L MCHC 32.1 RDW 16.0 H D Plt Count 164 MPV 8.7 Neutrophils % 65.5 Lymphocytes % 23.8 Monocytes % 7.7 Eosinophils % 2.6 Basophils % 0.4 Sodium Cancelled Potassium Cancelled Chloride Cancelled Carbon Dioxide Cancelled Anion Gap Cancelled BUN Cancelled Creatinine Cancelled Creat Clearance w eGFR Cancelled POC Glucometer Random Glucose Cancelled Hemoglobin A1c % Calcium Cancelled Phosphorus Magnesium Total Bilirubin Cancelled AST Cancelled ALT Cancelled Alkaline Phosphatase Cancelled Creatine Kinase Cancelled Troponin I Cancelled B-Natriuretic Peptide Cancelled Total Protein Cancelled Albumin Cancelled Triglycerides Cholesterol Total LDL Cholesterol HDL Cholesterol 01/12/18 01/12/18 01/13/18 16:57 16:57 06:38 WBC RBC Hgb Hct MCV MCH MCHC RDW Plt Count MPV Neutrophils % Lymphocytes % Monocytes % Eosinophils % Basophils % Sodium 138 Potassium 3.8 Chloride 101 Carbon Dioxide 32 Anion Gap 5 L BUN 14 Creatinine 0.6 Creat Clearance w eGFR > 60 POC Glucometer 423 Random Glucose 279 H Hemoglobin A1c % Calcium 7.9 L Phosphorus Magnesium Total Bilirubin 0.5 D AST 16 ALT 31 Alkaline Phosphatase 85 Creatine Kinase 55 Troponin I 0.04 B-Natriuretic Peptide 1400.12 H Total Protein 6.3 L Albumin 3.0 L Triglycerides Cholesterol Total LDL Cholesterol HDL Cholesterol 01/13/18 01/13/18 01/13/18 07:04 07:04 07:04 WBC 6.9 RBC 4.35 Hgb 11.1 Hct 34.8 MCV 80.0 MCH 25.5 L MCHC 31.8 L RDW 15.9 H Plt Count 171 MPV 8.4 Neutrophils % 87.9 H D Lymphocytes % 10.6 D Monocytes % 1.3 L D Eosinophils % 0.1 D Basophils % 0.1 Sodium 135 L Potassium 5.3 H Chloride 98 Carbon Dioxide 31 Anion Gap 6 L BUN 16 Creatinine 0.7 Creat Clearance w eGFR > 60 POC Glucometer Random Glucose 449 H* Hemoglobin A1c % 9.6 H Calcium 8.2 L Phosphorus 4.5 Magnesium 2.5 H Total Bilirubin 0.6 AST 26 ALT 42 Alkaline Phosphatase 102 Creatine Kinase Troponin I B-Natriuretic Peptide Total Protein 6.7 Albumin 3.0 L Triglycerides 91 Cholesterol 149 Total LDL Cholesterol 92 HDL Cholesterol 48 ASSESSMENT AND PLAN: 72 yof with PMhx of Asthma, CAd s/p PCI, no prior h/o CHF, NIDDM, HLD admitted with dyspnea, hypoxia, recently returned from [place] after an 8 hour flight, . -Acute asthma exacerbation -Acute ?Systolic vs diastolic HF exacerbation -Acute hypoxia, from above -Severe hyperglycemia, likely from poorly controlled DM compounded by high dose steroids -Hyperkalemia -HTN -HLD -CAD s/p PCI PLan: Solumedrol 60 mg IV q8h, standing and prn nebs. No clinical or radiographic evidence of PNA. lasix 40 mg IV daily. Strict I/Os, daily weights, follow up 2D echo. Cardiology/pulmonary input appreciated. CTA chest neg for PE. ISS, levemir 10 units x 1 today, start 15 units in AM. A1c 9.2, poor control. Levemir for now till steroids tapered. Resume oral hypoglycemics vs home d/c on insulin based on clinical course. Kayexalate x 1, Aggressive treat hyperglycemia and monitor for now. Hold ACei. Continue ASA/statin/Ranexa/Metoprolol. DVTPPX with heparin Dispo pending resolution of medical issues. Plan discussed with patient in detail, all questions answered.
[2018-01-13] MEDS ORDERED: INSULIN (NOVOLOG) ASPART 100 UNITS/ML 10ML VIAL SQ ONE ×2 (15:30→21:15)
[2018-01-13] MEDS ORDERED: INSULIN (LEVEMIR) 100 UNITS/ML UNITS SQ ONE (15:30)
[2018-01-13] MEDS ORDERED: SODIUM POLYSTYRENE SULFONATE 15 GM/60 ML BOTTLE PO ONE (16:00)
[2018-01-13] MEDS ORDERED: glipiZIDE 5 MG TABLET (FP) PO SCH (16:30)
[2018-01-13] MEDS: ATORVASTATIN CA 40 MG TABLET (FP) PO SCH (21:08)
[2018-01-13] MEDS: MONTELUKAST NA 10 MG TABLET PO SCH (21:08)
[2018-01-13 21:52] LABS: ANION GAP 5 (8-16); BLOOD UREA NITROGEN 21 mg/dL (7-18); CALCIUM 7.8 mg/dL (8.5-10.1); CHLORIDE 96 mmol/L (98-107); CO2 33 mmol/L (21-32); CREATININE 0.9 mg/dL (0.55-1.02); POTASSIUM 4.2 mmol/L (3.5-5.1); SODIUM 134 mmol/L (136-145)
[2018-01-13 21:56] LABS: GLUCOSE,RANDOM 573 mg/dL (74-106)
[2018-01-14] MEDS: guaiFENesin/D-M SUGAR-FREE/ACLHOL-FREE 118 ML BOTTLE PO PRN ×3 (02:08→13:35)
[2018-01-14] MEDS: methylPREDNISolone NA SUCC 125 MG/2 ML VIAL IVPUSH SCH ×2 (02:08→10:17)
[2018-01-14] MEDS: INSULIN SLIDING SCALE (NOVOLOG) 1 VIAL SQ SCH ×2 (06:24→17:43)
[2018-01-14] MEDS: INSULIN (LEVEMIR) 100 UNITS/ML UNITS SQ SCH (06:24)
[2018-01-14] MEDS: HEPARIN NA (PORCINE) 5,000 UNITS/ML 1ML VIAL SQ SCH ×3 (06:24→21:22)
[2018-01-14 06:53] LABS: BASO % 0.1 % (0-2.0); HEMATOCRIT 34.3 % (32.4-45.2); HEMOGLOBIN 10.9 GM/dL (10.7-15.3); MCHC 31.8 g/dl (32.0-36.0); MEAN CELL VOLUME 78.8 fl (80-96); MEAN PLT VOLUME 8.4 fl (7.5-11.1); MONO % 1.8 % (3.8-10.2); NEUT % 86.1 % (42.8-82.8); PLATELET COUNT 194 K/MM3 (134-434); RBC 4.35 M/mm3 (3.60-5.2); RDW 15.3 % (11.6-15.6); WHITE BLOOD COUNT 9.9 K/mm3 (4.0-10.0)
[2018-01-14 07:19] LABS: ALBUMIN 2.9 g/dl (3.4-5.0); ANION GAP 7 (8-16); BLOOD UREA NITROGEN 20 mg/dL (7-18); CALCIUM 8.5 mg/dL (8.5-10.1); CHLORIDE 96 mmol/L (98-107); CO2 36 mmol/L (21-32); CREATININE 0.7 mg/dL (0.55-1.02); MAGNESIUM 2.4 mg/dL (1.8-2.4); POTASSIUM 4.4 mmol/L (3.5-5.1); SGOT/AST 13 U/L (15-37); SGPT/ALT 35 U/L (12-78); SODIUM 139 mmol/L (136-145)
[2018-01-14 07:23] LABS: ALK PHOS 88 U/L (45-117); BILIRUBIN,TOTAL 0.6 mg/dL (0.2-1.0); TOT PROT 6.4 g/dl (6.4-8.2)
[2018-01-14] MEDS: ALBUTEROL SO4 2.5/IPRATROPIUM 0.5 INH SOL 3 ML VIAL.NEB. NEB SCH ×4 (07:40→20:29)
[2018-01-14 07:44] LABS: GLUCOSE,RANDOM 362 mg/dL (74-106)
--- NOTE | 2018-01-14 08:06 | PN ---
Teaching Attending Note Name of Resident: Gage Eddy ATTENDING PHYSICIAN STATEMENT I saw and evaluated the patient. I reviewed the resident's note and discussed the case with the resident. I agree with the resident's findings and plan as documented with exceptions below. SUBJECTIVE: Patient seen and examined. Breathing improved, short of breath when ambulates to the bathroom. no chest pain. positive cough. OBJECTIVE: Vital Signs Period Temp Pulse Resp BP Sys/Fong Pulse Ox Last 24 Hr 97.3 F-98.1 F 72-86 18-20 114-148/54-72 95 Intake & Output 01/11/18 01/12/18 01/13/18 01/14/18 23:59 23:59 23:59 23:59 Intake Total 160 Balance 160 Weight 188 lb 12.8 oz 188 lb 5 oz 193 lb 2 oz General: lying in bed, comfortable Chest: improved wheezing and air entry, no rales appreciated Abdomen: soft, obese, NT extremities: trace pedal edema Active Medications Generic Name Dose Route Start Last Admin Trade Name Freq PRN Reason Stop Dose Admin Albuterol Sulfate 1 amp 01/12/18 22:18 Ventolin 0.083% Nebulizer Soln - NEB Q4H PRN ASTHMA Albuterol/Ipratropium 1 amp 01/12/18 22:30 01/13/18 20:16 Duoneb - NEB 1 amp RQID STEVEN Administration Aspirin 81 mg 01/13/18 10:00 01/13/18 09:07 Asa - PO 81 mg DAILY STEVEN Administration Atorvastatin Calcium 40 mg 01/13/18 22:00 01/13/18 21:08 Lipitor - PO 40 mg HS STEVEN Administration Furosemide 40 mg 01/12/18 22:21 01/13/18 09:07 Lasix Injection - IVPUSH 40 mg DAILY STEVEN Administration Glipizide 10 mg 01/15/18 07:00 Glucotrol - PO DAILY@0700 STEVEN Glipizide 5 mg 01/14/18 16:30 Glucotrol - PO DAILY@1630 STEVEN Guaifenesin 5 ml 01/13/18 22:39 01/14/18 06:24 Diabetic Tussin Dm - PO 5 ml Q4H PRN Administration COUGH Heparin Sodium (Porcine) 5,000 unit 01/13/18 06:00 01/14/18 06:24 Heparin - SQ 5,000 unit TID STEVEN Administration Insulin Aspart 1 vial 01/13/18 07:00 01/14/18 06:24 Novolog Vial Sliding Scale - SQ 12 units ACHS STEVEN Administration Protocol Insulin Detemir 15 units 01/14/18 07:00 01/14/18 06:24 Levemir Vial SQ 15 unit ACBK STEVEN Administration Methylprednisolone Sodium Succinate 60 mg 01/13/18 02:00 01/14/18 02:08 Solu-Medrol - IVPUSH 60 mg Q8H-IV STEVEN Administration Metoprolol Succinate 25 mg 01/13/18 10:00 01/13/18 09:07 Toprol Xl - PO 25 mg DAILY STEVEN Administration Montelukast Sodium 10 mg 01/13/18 22:00 01/13/18 21:08 Singulair - PO 10 mg HS STEVEN Administration Ranolazine 500 mg 01/13/18 10:00 01/13/18 21:08 Ranexa - PO 500 mg BID STEVEN Administration Laboratory Results - last 24 hr 01/13/18 01/13/18 01/13/18 06:38 07:04 07:04 WBC RBC Hgb Hct MCV MCH MCHC RDW Plt Count MPV Neutrophils % Lymphocytes % Monocytes % Eosinophils % Basophils % Sodium 135 L Potassium 5.3 H Chloride 98 Carbon Dioxide 31 Anion Gap 6 L BUN 16 Creatinine 0.7 Creat Clearance w eGFR > 60 POC Glucometer 423 Random Glucose 449 H* Hemoglobin A1c % 9.6 H Calcium 8.2 L Phosphorus 4.5 Magnesium 2.5 H Total Bilirubin 0.6 AST 26 ALT 42 Alkaline Phosphatase 102 Total Protein 6.7 Albumin 3.0 L Triglycerides 91 Cholesterol 149 Total LDL Cholesterol 92 HDL Cholesterol 48 01/13/18 01/14/18 01/14/18 21:10 02:14 05:54 WBC RBC Hgb Hct MCV MCH MCHC RDW Plt Count MPV Neutrophils % Lymphocytes % Monocytes % Eosinophils % Basophils % Sodium 134 L Potassium 4.2 Chloride 96 L Carbon Dioxide 33 H Anion Gap 5 L BUN 21 H Creatinine 0.9 Creat Clearance w eGFR POC Glucometer 369 368 Random Glucose 573 H* Hemoglobin A1c % Calcium 7.8 L Phosphorus Magnesium Total Bilirubin AST ALT Alkaline Phosphatase Total Protein Albumin Triglycerides Cholesterol Total LDL Cholesterol HDL Cholesterol 01/14/18 01/14/18 06:26 06:26 WBC 9.9 D RBC 4.35 Hgb 10.9 Hct 34.3 MCV 78.8 L MCH 25.0 L MCHC 31.8 L RDW 15.3 Plt Count 194 MPV 8.4 Neutrophils % 86.1 H Lymphocytes % 12.0 Monocytes % 1.8 L Eosinophils % 0.0 D Basophils % 0.1 Sodium 139 Potassium 4.4 Chloride 96 L Carbon Dioxide 36 H Anion Gap 7 L BUN 20 H Creatinine 0.7 Creat Clearance w eGFR > 60 POC Glucometer Random Glucose 362 H* Hemoglobin A1c % Calcium 8.5 Phosphorus 4.0 Magnesium 2.4 Total Bilirubin 0.6 AST 13 L ALT 35 Alkaline Phosphatase 88 Total Protein 6.4 Albumin 2.9 L Triglycerides Cholesterol Total LDL Cholesterol HDL Cholesterol 2D echo results reviewed ASSESSMENT AND PLAN: 72 yof with PMhx of Asthma, CAd s/p PCI, no prior h/o CHF, NIDDM, HLD admitted with dyspnea, hypoxia, recently returned from [facility] after an 8 hour flight, . -Acute asthma exacerbation -Acute Diastolic HF exacerbation -Acute hypoxia, from above -Severe hyperglycemia, likely from poorly controlled DM compounded by high dose steroids -Hyperkalemia -HTN -HLD -CAD s/p PCI PLan: Breathing improved, taper solumedrol to 40 mg IV q8h, prn and standing nebs. No clinical or radiographic evidence of PNA. Check flu swab. lasix 40 mg IV daily. Strict I/Os, daily weights, 2D echo results noted. Transition to PO lasix in 24-48 hours if continues to improve. Cardiology/pulmonary input appreciated. CTA chest neg for PE. Persistently hyperglycemia, resume home glipizide. Continue levemir. Endocrine input noted, ISS changed. A1c 9.2, poor control. K normalized, Aggressively treat hyperglycemia and monitor for now. Hold ACei. Continue ASA/statin/Ranexa/Metoprolol. DVTPPX with heparin Dispo pending resolution of medical issues. Will need PT eval and home oxygen needs assessment when improves. Plan discussed with patient in detail, all questions answered.
--- NOTE | 2018-01-14 08:46 | PN ---
Progress Note, Physician History of Present Illness: 72yo female with h/o HTN, DM, hyperlipidemia, CAD s/p stent x1, asthma, morbid obesity admitted with worsening shortness of breath x 4-5 days associated with chest discomfort associated with coughing and wheezing. +cough mostly nonproductive, but denies angina. No fevers, chills or sweats. No sick contacts. Asthma normally well controlled. Takes Symbicort as needed, does not take it every day. She is a never smoker. Has never been hospitalized for asthma. CTA chest was done in the ER which did not show any evidence of PE, feels improved with nebulizer treatment. - Current Medication List Current Medications: Active Medications Albuterol Sulfate (Ventolin 0.083% Nebulizer Soln -) 1 amp NEB Q4H PRN PRN Reason: ASTHMA Albuterol/Ipratropium (Duoneb -) 1 amp NEB RQID [facility] Last Admin: 01/14/18 07:40 Dose: 1 amp Aspirin (Asa -) 81 mg PO DAILY [facility] Last Admin: 01/13/18 09:07 Dose: 81 mg Atorvastatin Calcium (Lipitor -) 40 mg PO HS [facility] Last Admin: 01/13/18 21:08 Dose: 40 mg Furosemide (Lasix Injection -) 40 mg IVPUSH DAILY [facility] Last Admin: 01/13/18 09:07 Dose: 40 mg Glipizide (Glucotrol -) 10 mg PO DAILY@0700 [facility] Glipizide (Glucotrol -) 5 mg PO DAILY@1630 [facility] Guaifenesin (Diabetic Tussin Dm -) 5 ml PO Q4H PRN PRN Reason: COUGH Last Admin: 01/14/18 06:24 Dose: 5 ml Heparin Sodium (Porcine) (Heparin -) 5,000 unit SQ TID [facility] Last Admin: 01/14/18 06:24 Dose: 5,000 unit Insulin Aspart (Novolog Vial Sliding Scale -) 1 vial SQ ACHS [facility] PRN Reason: Protocol Last Admin: 01/14/18 06:24 Dose: 12 units Insulin Detemir (Levemir Vial) 15 units SQ ACBK [facility] Last Admin: 01/14/18 06:24 Dose: 15 unit Methylprednisolone Sodium Succinate (Solu-Medrol -) 60 mg IVPUSH Q8H-IV [facility] Last Admin: 01/14/18 02:08 Dose: 60 mg Metoprolol Succinate (Toprol Xl -) 25 mg PO DAILY [facility] Last Admin: 01/13/18 09:07 Dose: 25 mg Montelukast Sodium (Singulair -) 10 mg PO HS [facility] Last Admin: 01/13/18 21:08 Dose: 10 mg Ranolazine (Ranexa -) 500 mg PO BID [facility] Last Admin: 01/13/18 21:08 Dose: 500 mg - Objective Vital Signs: Vital Signs Temperature 98.1 F 01/14/18 06:00 Pulse Rate 72 01/14/18 06:00 Respiratory Rate 20 01/14/18 06:00 Blood Pressure 148/72 01/14/18 06:00 O2 Sat by Pulse Oximetry (%) 95 01/13/18 21:00 Eyes: Yes: WNL, Conjunctiva Clear, EOM Intact HENT: Yes: WNL, Atraumatic, Normocephalic Neck: Yes: WNL, Supple, Trachea Midline Cardiovascular: Yes: WNL, Regular Rate and Rhythm Respiratory: Yes: WNL, Regular, CTA Bilaterally Gastrointestinal: Yes: WNL, Normal Bowel Sounds Genitourinary: Yes: WNL Musculoskeletal: Yes: WNL Extremities: Yes: WNL Edema: No Integumentary: Yes: WNL Neurological: Yes: WNL, Alert, Oriented ...Motor Strength: WNL Psychiatric: Yes: WNL Labs: CBC, BMP 01/14/18 06:26 01/14/18 06:26 Assessment/Plan 1. Acute Asthma Exacerbation with atypical chest pain 2. CAD s/p PCI (stent), angina pectoris 3. HTN 4. DM not at goal control 5. Hyperlipidemia 6. Diastolic dysfunction 7. Hyperkalemia P:1. IV medrol, inhaled bronchodilators standing and PRN, singulair, monitor peak flow, O2 as needed, 2. Continue ASA 81 qd, Lipitor 40 qd, Ranexa 500 bid, Toprol XL 25 qd, ideally resume lisinopril for renovascular protection once hyperkalemia resolves 3. Diuresis with monitor diuretic response, renal function and electrolytes 4. F/u echocardiogram MIBI stress test prior to discharge to risk stratify and r/o ischemia.
--- NOTE | 2018-01-14 08:52 | PN ---
Physical Exam: SUBJECTIVE: Patient seen and examined -Pt with BG of 538 on repeat BMP this PM; afebrile, VSS; Pt states breathing is slightly improved; still with dry cough with associated MSK CP and ab pain worsened by coughing; Denies f/c/n/v/d, IRVING, throat pain, palpitations, FNDs; also endorsing trace LE edema OBJECTIVE: Vital Signs Intake & Output 01/11/18 01/12/18 01/13/18 01/14/18 23:59 23:59 23:59 23:59 Intake Total 160 Balance 160 Weight 85.638 kg 85.417 kg 87.6 kg Period Temp Pulse Resp BP Sys/Fong Pulse Ox Last 24 Hr 97.3 F-98.1 F 72-86 18-20 114-148/54-72 95 GENERAL: Middle aged woman, NAD HEAD: NCAT EYES: PERRL, extraocular movements intact, sclera anicteric, conjunctiva clear. No ptosis. ENT: Ears normal, nares patent, oropharynx clear without exudates, moist mucous membranes. NECK: Trachea midline, full range of motion, supple. LUNGS: Trace expiratory wheeze in upper lung mabry. Decreased air entry throughout. No crackles, rhonchi or accessory muscle use. HEART: Regular rate and rhythm, S1, S2 without murmur, rub or gallop. ABDOMEN: Soft, nontender, nondistended, normoactive bowel sounds, no guarding, no rebound, no hepatosplenomegaly, no masses. EXTREMITIES: 2+ pulses, warm, well-perfused, trace pedal edema BL. NEUROLOGICAL: Cranial nerves II through XII grossly intact. Normal speech, gait not observed. PSYCH: Normal mood, normal affect. Pleasant, interactive SKIN: Warm, dry, normal turgor, no rashes or lesions noted Laboratory Results - last 24 hr CBC, BMP 01/14/18 06:26 01/14/18 06:26 01/13/18 01/13/18 01/13/18 06:38 07:04 07:04 WBC RBC Hgb Hct MCV MCH MCHC RDW Plt Count MPV Neutrophils % Lymphocytes % Monocytes % Eosinophils % Basophils % Sodium 135 L Potassium 5.3 H Chloride 98 Carbon Dioxide 31 Anion Gap 6 L BUN 16 Creatinine 0.7 Creat Clearance w eGFR > 60 POC Glucometer 423 Random Glucose 449 H* Hemoglobin A1c % 9.6 H Calcium 8.2 L Phosphorus 4.5 Magnesium 2.5 H Total Bilirubin 0.6 AST 26 ALT 42 Alkaline Phosphatase 102 Total Protein 6.7 Albumin 3.0 L Triglycerides 91 Cholesterol 149 Total LDL Cholesterol 92 HDL Cholesterol 48 01/13/18 01/14/18 01/14/18 21:10 02:14 05:54 WBC RBC Hgb Hct MCV MCH MCHC RDW Plt Count MPV Neutrophils % Lymphocytes % Monocytes % Eosinophils % Basophils % Sodium 134 L Potassium 4.2 Chloride 96 L Carbon Dioxide 33 H Anion Gap 5 L BUN 21 H Creatinine 0.9 Creat Clearance w eGFR POC Glucometer 369 368 Random Glucose 573 H* Hemoglobin A1c % Calcium 7.8 L Phosphorus Magnesium Total Bilirubin AST ALT Alkaline Phosphatase Total Protein Albumin Triglycerides Cholesterol Total LDL Cholesterol HDL Cholesterol 01/14/18 01/14/18 06:26 06:26 WBC 9.9 D RBC 4.35 Hgb 10.9 Hct 34.3 MCV 78.8 L MCH 25.0 L MCHC 31.8 L RDW 15.3 Plt Count 194 MPV 8.4 Neutrophils % 86.1 H Lymphocytes % 12.0 Monocytes % 1.8 L Eosinophils % 0.0 D Basophils % 0.1 Sodium 139 Potassium 4.4 Chloride 96 L Carbon Dioxide 36 H Anion Gap 7 L BUN 20 H Creatinine 0.7 Creat Clearance w eGFR > 60 POC Glucometer Random Glucose 362 H* Hemoglobin A1c % Calcium 8.5 Phosphorus 4.0 Magnesium 2.4 Total Bilirubin 0.6 AST 13 L ALT 35 Alkaline Phosphatase 88 Total Protein 6.4 Albumin 2.9 L Triglycerides Cholesterol Total LDL Cholesterol HDL Cholesterol Active Medications Generic Name Dose Route Start Last Admin Trade Name Freq PRN Reason Stop Dose Admin Albuterol Sulfate 1 amp 01/12/18 22:18 Ventolin 0.083% Nebulizer Soln - NEB Q4H PRN ASTHMA Albuterol/Ipratropium 1 amp 01/12/18 22:30 01/14/18 07:40 Duoneb - NEB 1 amp RQID STEVEN Administration Aspirin 81 mg 01/13/18 10:00 01/13/18 09:07 Asa - PO 81 mg DAILY STEVEN Administration Atorvastatin Calcium 40 mg 01/13/18 22:00 01/13/18 21:08 Lipitor - PO 40 mg HS STEVEN Administration Furosemide 40 mg 01/12/18 22:21 01/13/18 09:07 Lasix Injection - IVPUSH 40 mg DAILY STEVEN Administration Glipizide 10 mg 01/15/18 07:00 Glucotrol - PO DAILY@0700 STEVEN Glipizide 5 mg 01/14/18 16:30 Glucotrol - PO DAILY@1630 [facility] Guaifenesin 5 ml 01/13/18 22:39 01/14/18 06:24 Diabetic Tussin Dm - PO 5 ml Q4H PRN Administration COUGH Heparin Sodium (Porcine) 5,000 unit 01/13/18 06:00 01/14/18 06:24 Heparin - SQ 5,000 unit TID STEVEN Administration Insulin Aspart 1 vial 01/13/18 07:00 01/14/18 06:24 Novolog Vial Sliding Scale - SQ 12 units ACHS STEVEN Administration Protocol Insulin Detemir 15 units 01/14/18 07:00 01/14/18 06:24 Levemir Vial SQ 15 unit ACBK STEVEN Administration Methylprednisolone Sodium Succinate 60 mg 01/13/18 02:00 01/14/18 02:08 Solu-Medrol - IVPUSH 60 mg Q8H-IV STEVEN Administration Metoprolol Succinate 25 mg 01/13/18 10:00 01/13/18 09:07 Toprol Xl - PO 25 mg DAILY STEVEN Administration Montelukast Sodium 10 mg 01/13/18 22:00 01/13/18 21:08 Singulair - PO 10 mg HS STEVEN Administration Ranolazine 500 mg 01/13/18 10:00 01/13/18 21:08 Ranexa - PO 500 mg BID STEVEN Administration No micro CXR 01.12 - Since 04/06/2017, 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 Correlation recommended. CTA 01/12 - IMPRESSION: Limited examination, as described above with very poor enhancement of the distal pulmonary artery branches, in particular in the lower lobes. Otherwise, there is no evidence of a pulmonary embolus in the main pulmonary artery and its proximal bifurcations, bilaterally. Mild cardiomegaly. Borderline right paratracheal lymph node which is nonspecific. Scattered areas of atelectatic changes in the lung without gross evidence of focal infiltrates. Partially included over distended gallbladder ASSESSMENT/PLAN: 72 y/o f w/ pmh of asthma and CAD who presented to ED over the weekend for worsening SOB, likely to be in acute asthma exacerbation. #Acute Asthma Exacerbation - CTA neg, no evidence of PNA on imaging - Solumedrol decreased from 60 to 40mg q8h - duonebs standing and prn - pulm consulted - O2 prn - f/u flu swab - robitussin DM - cepacol #Acute on chronic diastolic CHF - BNP 1400 on admission - Strict Is and Os - Lasix 40mg IV daily - Echo results noted - Cardiology consulted - Beta shaq/ ranexa #DM2 - A1C 9.2, persistently hyperglycemic - Endocrine consulted - ISS - restarted home glipizide 10 + 5 - c/w home levemir 15u ACBK #CAD - c/w ASA - cards following - f/u as outpt - c/w lipitor #HyperK - resolved - trend PPX HSQ FEN Poor hydration daily lytes diabetic diet Plan discussed with Dr. Blu Eddy, PGY1 Visit type - Emergency Visit Emergency Visit: Yes ED Registration Date: 01/12/18 Care time: The patient presented to the Emergency Department on the above date and was hospitalized for further evaluation of their emergent condition. - New Patient This patient is new to me today: Yes Date on this admission: 01/14/18 - Critical Care Critical Care patient: No - Discharge Referral Referred to [facility] Med P.C.: No
[2018-01-14] MEDS: metoPROLOL SUCCINATE 25 MG TAB.SR.24H (FP) PO SCH (10:16)
[2018-01-14] MEDS: FUROSEMIDE 40 MG/4 ML INJECTABLE VIAL IVPUSH SCH (10:16)
[2018-01-14] MEDS: RANOLAZINE E.R. 500 MG TABLET (FP) PO SCH ×2 (10:16→21:22)
[2018-01-14] MEDS: ASPIRIN 81 MG CHEWABLE TABLETS PO SCH (10:16)
[2018-01-14] MEDS ORDERED: BENZOCAINE/MENTH/CETYLPYRD CL 1 EACH LOZENGE MM PRN (11:05)
--- NOTE | 2018-01-14 11:19 | PN ---
Progress Note, Physician History of Present Illness: pulmonary alert,feeling better,less dyspneic,O2 SAT 87% ON RA - Current Medication List Current Medications: Active Medications Albuterol Sulfate (Ventolin 0.083% Nebulizer Soln -) 1 amp NEB Q4H PRN PRN Reason: ASTHMA Albuterol/Ipratropium (Duoneb -) 1 amp NEB RQID [facility] Last Admin: 01/14/18 07:40 Dose: 1 amp Aspirin (Asa -) 81 mg PO DAILY [facility] Last Admin: 01/14/18 10:16 Dose: 81 mg Atorvastatin Calcium (Lipitor -) 40 mg PO HS [facility] Last Admin: 01/13/18 21:08 Dose: 40 mg Benzocaine/Menthol (Cepacol Lozenge -) 1 each MM PRN PRN PRN Reason: SORE THROAT Furosemide (Lasix Injection -) 40 mg IVPUSH DAILY [facility] Last Admin: 01/14/18 10:16 Dose: 40 mg Glipizide (Glucotrol -) 10 mg PO DAILY@0700 [facility] Glipizide (Glucotrol -) 5 mg PO DAILY@1630 [facility] Guaifenesin (Diabetic Tussin Dm -) 5 ml PO Q4H PRN PRN Reason: COUGH Last Admin: 01/14/18 06:24 Dose: 5 ml Heparin Sodium (Porcine) (Heparin -) 5,000 unit SQ TID [facility] Last Admin: 01/14/18 06:24 Dose: 5,000 unit Insulin Aspart (Novolog Vial Sliding Scale -) 1 vial SQ ACHS [facility] PRN Reason: Protocol Last Admin: 01/14/18 06:24 Dose: 12 units Insulin Detemir (Levemir Vial) 15 units SQ ACBK [facility] Last Admin: 01/14/18 06:24 Dose: 15 unit Methylprednisolone Sodium Succinate (Solu-Medrol -) 60 mg IVPUSH Q8H-IV [facility] Last Admin: 01/14/18 10:17 Dose: 60 mg Metoprolol Succinate (Toprol Xl -) 25 mg PO DAILY [facility] Last Admin: 01/14/18 10:16 Dose: 25 mg Montelukast Sodium (Singulair -) 10 mg PO HS [facility] Last Admin: 01/13/18 21:08 Dose: 10 mg Ranolazine (Ranexa -) 500 mg PO BID [facility] Last Admin: 01/14/18 10:16 Dose: 500 mg - Objective Vital Signs: Vital Signs Temperature 97.6 F 01/14/18 10:00 Pulse Rate 85 01/14/18 10:00 Respiratory Rate 20 01/14/18 10:00 Blood Pressure 139/77 01/14/18 10:00 O2 Sat by Pulse Oximetry (%) 95 01/13/18 21:00 Constitutional: Yes: Well Nourished, Calm Eyes: Yes: WNL HENT: Yes: WNL Neck: Yes: WNL Cardiovascular: Yes: Regular Rate and Rhythm, S1, S2 Respiratory: Yes: Wheezes (SCATTERED ERNESTO WHEEZES) Gastrointestinal: Yes: Normal Bowel Sounds, Soft Extremities: Yes: WNL Edema: No Labs: CBC, BMP 01/14/18 06:26 01/14/18 06:26 Assessment/Plan Problem List - Problems (1) Acute asthma exacerbation Code(s): J45.901 - UNSPECIFIED ASTHMA WITH (ACUTE) EXACERBATION (2) Diabetes Code(s): E11.9 - TYPE 2 DIABETES MELLITUS WITHOUT COMPLICATIONS (3) HTN (hypertension) Code(s): I10 - ESSENTIAL (PRIMARY) HYPERTENSION (4) Hyperlipidemia Code(s): E78.5 - HYPERLIPIDEMIA, UNSPECIFIED Assessment/Plan Acute Asthma Exacerbation CAD HTN DM Hyperlipidemia - IV medrol same dose - inhaled bronchodilators standing and PRN - singulair - monitor peak flow - glucose control while on systemic steroids - O2 as needed - DVT prophylaxis - monitor peak flow - incentive spirometer - pfts outpatient DR CASANOVA
--- NOTE | 2018-01-14 11:30 | CONSULT ---
Consult Consult Specialty:: Endocrinology Referred by:: Dr Hurt Reason for Consultation:: Hyperglycemia - History of Present Illness Chief Complaint: SOB History of Present Illness: This is a 72 year old female with h/o CAD (s/p stent), HTN, HLD, NIDDM for about 10 years, never on Insulin and asthma who presented to ED c/o worsening shortness of breath and cough. Patient stated that she has been having intermittently productive (whitish sputum) cough for 2-3 weeks with some dyspnea on exertion for 2-3 months. Endorsed associated pleuritic chest pain. Patient returned from a trip to [facility] today and daughter brought her to ED for evaluation. Pt still with AVERY, cough. Pt referred for management of uncontrolled blood sugar. FS at home usually <200. Lowest 70s. No hospitalization for hypo or hyperglycemia. No visual symptoms. C/O pinching sensation to left foot off and on. - History Source History Provided By: Patient, Medical Record - Past Medical History Cardio/Vascular: Yes: HTN, Hyperlipdemia Pulmonary: Yes: Other (?hx asthma) Psych: Yes: Anxiety Musculoskeletal: Yes: Chronic low back pain Endocrine: Yes: Diabetes Mellitus - Alcohol/Substance Use Hx Alcohol Use: No - Smoking History Smoking history: Never smoked Have you smoked in the past 12 months: No Aproximately how many cigarettes per day: 0 Home Medications - Allergies Allergies/Adverse Reactions: Allergies Allergy/AdvReac Type Severity Reaction Status Date / Time No Known Allergies Allergy Verified 01/12/18 14:54 Family Disease History - Family Disease History Family Disease History: Diabetes: Mother Review of Systems - Review of Systems Constitutional: reports: Malaise Eyes: reports: No Symptoms HENT: reports: No Symptoms Neck: reports: No Symptoms Cardiovascular: reports: Shortness of Breath Respiratory: reports: Cough, SOB, SOB on Exertion Gastrointestinal: reports: No Symptoms Genitourinary: reports: No Symptoms Breasts: reports: No Symptoms Reported Musculoskeletal: reports: No Symptoms Integumentary: reports: No Symptoms Neurological: reports: No Symptoms Endocrine: reports: No Symptoms Hematology/Lymphatic: reports: No Symptoms Psychiatric: reports: No Symptoms Physical Exam Vital Signs: Vital Signs Temperature 97.6 F 01/14/18 10:00 Pulse Rate 85 01/14/18 10:00 Respiratory Rate 20 01/14/18 10:00 Blood Pressure 139/77 01/14/18 10:00 O2 Sat by Pulse Oximetry (%) 95 01/13/18 21:00 Constitutional: Yes: No Distress, Calm Eyes: Yes: Conjunctiva Clear, EOM Intact HENT: Yes: Atraumatic, Normocephalic Neck: Yes: Supple, Trachea Midline Cardiovascular: Yes: Regular Rate and Rhythm Respiratory: Yes: Regular, Rhonchi, Other (crackles over left upper lung field and b/l basal crackles) Gastrointestinal: Yes: Normal Bowel Sounds, Soft Musculoskeletal: Yes: WNL Extremities: Yes: WNL Edema: No Neurological: Yes: Alert, Oriented Labs: CBC, BMP 01/14/18 06:26 01/14/18 06:26 Imaging - Results Chest X-ray: Report Reviewed Cat Scan: Report Reviewed Assessment/Plan AP: Acute Asthma Exacerbation T2DM uncontrolled CAD HTN Hyperlipidemia BGM QACHS Increase Novolog Coverage Glipizide 10 + 5 Diet exercise discussed May need to take Insulin at home too at least until she is on steroids if she is discharged on it. Nutrition consult IV medrol bronchodilators standing and PRN O2 as needed
[2018-01-14] MEDS ORDERED: Insulin (LOG) Aspart 100 UNITS/ML VIAL SQ ONE (11:52)
--- NOTE | 2018-01-14 14:03 | MSN ---
Progress Note (short form) - Note Progress Note: CHIEF COMPLAINT: shortness of breath HISTORY OF PRESENT ILLNESS: Haley Rock is a 72 year old female with a significant PMHx of asthma, NIDDM who presented to the hospital after 2 weeks of progressively increasing shortness of breath. Patient stated that she was unable to ambulate longer distances like she had in the past and was wheezing more. She had attempted to remedy her symptoms with her inhalers with no effect. Patient was admitted for acute asthma exacerbation and started on solumedrol, duonebs, singular, and oxygen as needed. Additionally, patient was found with acute heart failure decompensation and started on Lasix. Overnight, patient had increased blood sugars of 573 on random blood glucose and elevated finger sticks at 423, 369. Patient had no acute complaints overnight. This morning, patient complains of very mild shortness of breath but stated that she felt comfortable on 2L NC. Patient stated that she had a cough that was dry but felt like she needed to get mucus out that was stuck in her throat and additionally felt spasm in her chest and abdomen when she coughed that was not present at rest. Patient denied fever, chills, n/v/c/d, weakness, fatigue, myalgias, arthralgias. Recent Travel: recently returned from [place] PAST MEDICAL HISTORY: Asthma, CAD, HTN, HLD, NIDDM PAST SURGICAL HISTORY: denies significant history Social History: Smoking: denies Alcohol: denies Drugs: denies REVIEW OF SYSTEMS CONSTITUTIONAL: Absent: fever, chills, diaphoresis, generalized weakness, malaise, loss of appetite, weight change HEENT: Absent: rhinorrhea, nasal congestion, throat pain, throat swelling, difficulty swallowing, mouth swelling, ear pain, eye pain, visual changes CARDIOVASCULAR: Absent: chest pain, syncope, palpitations, irregular heart rate, lightheadedness , peripheral edema RESPIRATORY: wheezing, shortness of breath, cough Absent: dyspnea with exertion, orthopnea, stridor, hemoptysis GASTROINTESTINAL: abdominal pain with cough Absent: abdominal distension, nausea, vomiting, diarrhea, constipation, melena, hematochezia GENITOURINARY: Absent: dysuria, frequency, urgency, hesitancy, hematuria, flank pain, genital pain MUSCULOSKELETAL: Absent: myalgia, arthralgia, joint swelling, back pain, neck pain SKIN: Absent: rash, itching, pallor HEMATOLOGIC/IMMUNOLOGIC: Absent: easy bleeding, easy bruising, lymphadenopathy, frequent infections ENDOCRINE: Absent: unexplained weight gain, unexplained weight loss, heat intolerance, cold intolerance NEUROLOGIC: Absent: headache, focal weakness or paresthesias, dizziness, unsteady gait, seizure, mental status changes, bladder or bowel incontinence PSYCHIATRIC: Absent: anxiety, depression, suicidal or homicidal ideation, hallucinations. PHYSICAL EXAMINATION GENERAL: Awake, alert, and fully oriented, in no acute distress. HEAD: Normal with no signs of trauma. EARS, NOSE, THROAT: Moist mucous membranes. NECK: Normal range of motion, supple without lymphadenopathy, JVD, or masses. LUNGS: Breath sounds equal. Expiratory wheezes noted. no crackles, no accessory muscle use. HEART: Regular rate and rhythm, normal S1 and S2 without murmur, rub or gallop. ABDOMEN: Soft, nontender, not distended, normoactive bowel sounds, no guarding, no rebound, no masses. No hepatomegaly or splenomegaly. MUSCULOSKELETAL: Normal range of motion at all joints. No bony deformities or tenderness. No CVA tenderness. UPPER EXTREMITIES: 2+ pulses, warm, well-perfused. No cyanosis. No clubbing. Cap refill <2 seconds. No peripheral edema. LOWER EXTREMITIES: 2+ pulses, warm, well-perfused. No calf tenderness. Trace peripheral edema. NEUROLOGICAL: Cranial nerves II-XII intact. Normal speech. Normal gait. PSYCHIATRIC: Cooperative. Good eye contact. Appropriate mood and affect. SKIN: Warm, dry, normal turgor, no rashes or lesions noted. Allergies Allergy/AdvReac Type Severity Reaction Status Date / Time No Known Allergies Allergy Verified 01/12/18 14:54 Active Medications Generic Name Dose Route Start Last Admin Trade Name Freq PRN Reason Stop Dose Admin Albuterol Sulfate 1 amp 01/12/18 22:18 Ventolin 0.083% Nebulizer Soln - NEB Q4H PRN ASTHMA Albuterol/Ipratropium 1 amp 01/12/18 22:30 01/14/18 11:20 Duoneb - NEB 1 amp RQID STEVEN Administration Aspirin 81 mg 01/13/18 10:00 01/14/18 10:16 Asa - PO 81 mg DAILY STEVEN Administration Atorvastatin Calcium 40 mg 01/13/18 22:00 01/13/18 21:08 Lipitor - PO 40 mg HS STEVEN Administration Benzocaine/Menthol 1 each 01/14/18 11:05 Cepacol Lozenge - MM PRN PRN SORE THROAT Furosemide 40 mg 01/12/18 22:21 01/14/18 10:16 Lasix Injection - IVPUSH 40 mg DAILY STEVEN Administration Glipizide 10 mg 01/15/18 07:00 Glucotrol - PO DAILY@0700 [facility] Glipizide 5 mg 01/14/18 16:30 Glucotrol - PO DAILY@1630 [facility] Guaifenesin 5 ml 01/13/18 22:39 01/14/18 13:35 Diabetic Tussin Dm - PO 5 ml Q4H PRN Administration COUGH Heparin Sodium (Porcine) 5,000 unit 01/13/18 06:00 01/14/18 13:26 Heparin - SQ 5,000 unit TID STEVEN Administration Insulin Aspart 1 units 01/14/18 22:00 Novolog SQ HS [facility] Protocol Insulin Aspart 1 vial 01/14/18 16:30 Novolog Vial Sliding Scale - SQ TIDAC [facility] Protocol Insulin Detemir 15 units 01/14/18 07:00 01/14/18 06:24 Levemir Vial SQ 15 unit ACBK [facility] Administration Methylprednisolone Sodium Succinate 60 mg 01/13/18 02:00 01/14/18 10:17 Solu-Medrol - IVPUSH 60 mg Q8H-IV STEVEN Administration Metoprolol Succinate 25 mg 01/13/18 10:00 01/14/18 10:16 Toprol Xl - PO 25 mg DAILY STEVEN Administration Montelukast Sodium 10 mg 01/13/18 22:00 01/13/18 21:08 Singulair - PO 10 mg HS [facility] Administration Ranolazine 500 mg 01/13/18 10:00 01/14/18 10:16 Ranexa - PO 500 mg BID STEVEN Administration IMAGING CHEST X-RAY: No acute evidence of infiltrate or pleural fluid CHEST CT: Scattered areas of atelectic changes, no acute evidence of pulmonary emboli. ASSESSMENT/PLAN: Patient is a 72 year old female with a PMHx of asthma and NIDDM who presented with increased shortness of breath and wheezing. Acute Asthma Exacerbation - CT scan negative for PE - change to Solumedrol 40mg IV q8h - Duoneb qid and q4h prn - Singular 10mg qhs - O2 as needed - incentive spirometry Acute Heart Failure Decompensation - IV Lasix 40mg - Echo is within normal limits - continue aspirin, Ranexa, Toprol Diabetes Mellitus - HA1C 9.6 - Levemir 15mg qhs - ISS - BGM - resume glipizide 10mg in the morning, 5mg nightly Cough - cepacol lozenge HTN - toprol XL 25mg daily HLD - Lipitor 40mg daily F/E/N - hold IV fluids - electrolytes within normal limits - replete as necessary - low sodium diet DVT PPx - heparin 5000 subq tid Disposition - admitted to telemetry Problem List - Problems (1) Acute asthma exacerbation Code(s): J45.901 - UNSPECIFIED ASTHMA WITH (ACUTE) EXACERBATION Qualifiers: Asthma severity: moderate (2) Diabetes Code(s): E11.9 - TYPE 2 DIABETES MELLITUS WITHOUT COMPLICATIONS Qualifiers: Diabetes mellitus type: type 2 (3) HTN (hypertension) Code(s): I10 - ESSENTIAL (PRIMARY) HYPERTENSION Qualifiers: Hypertension type: essential hypertension Qualified Code(s): I10 - Essential (primary) hypertension (4) Hyperlipidemia Code(s): E78.5 - HYPERLIPIDEMIA, UNSPECIFIED Qualifiers: Hyperlipidemia type: pure hypercholesterolemia Qualified Code(s): E78.00 - Pure hypercholesterolemia, unspecified; E78.0 - Pure hypercholesterolemia
[2018-01-14] MEDS: glipiZIDE 5 MG TABLET (FP) PO SCH (17:42)
[2018-01-14] MEDS: methylPREDNISolone NA SUCC 40 MG/1 ML VIAL IVPUSH SCH (17:42)
[2018-01-14] MEDS ORDERED: PT OWN MED DRAWER 7, Y5N ONE (21:04)
[2018-01-14] MEDS: MONTELUKAST NA 10 MG TABLET PO SCH (21:21)
[2018-01-14] MEDS: ATORVASTATIN CA 40 MG TABLET (FP) PO SCH (21:21)
[2018-01-14] MEDS ORDERED: INSULIN (NOVOLOG) ASPART 100 UNITS/ML 10ML VIAL SQ ONE (21:27)
[2018-01-14] MEDS: Insulin (LOG) Aspart 100 UNITS/ML VIAL SQ SCH (23:50)
[2018-01-15] MEDS: methylPREDNISolone NA SUCC 40 MG/1 ML VIAL IVPUSH SCH ×3 (01:11→17:15)
[2018-01-15] MEDS: glipiZIDE 5 MG TABLET (FP) PO SCH ×2 (06:08→17:15)
[2018-01-15] MEDS: INSULIN SLIDING SCALE (NOVOLOG) 1 VIAL SQ SCH ×3 (06:09→17:15)
[2018-01-15] MEDS: HEPARIN NA (PORCINE) 5,000 UNITS/ML 1ML VIAL SQ SCH ×3 (06:09→21:20)
[2018-01-15] MEDS: INSULIN (LEVEMIR) 100 UNITS/ML UNITS SQ SCH (06:10)
--- NOTE | 2018-01-15 06:11 | PN ---
Physical Exam: SUBJECTIVE: Patient seen and examined - Poorly controlled sugars yesterday 400-500s; Hypoxic to 93% on 2L NC; No major overnight events; VSS, afebrile; Pt continues to endorse [employer]IN [employer] cough, mild dyspnea however much improved; denies f/c/n/v/d, [place], CP, back pain, LE edema; states she feels occasional abdominal pain during coughing paroxysms; BM+ overnight OBJECTIVE: Vital Signs Intake & Output 01/12/18 01/13/18 01/14/18 01/15/18 23:59 23:59 23:59 23:59 Intake Total 160 1050 Balance 160 1050 Weight 85.638 kg 85.417 kg 87.6 kg Period Temp Pulse Resp BP Sys/Fong Pulse Ox Last 24 Hr 97.6 F-98.6 F 68-90 16-20 130-150/57-84 93-95 GENERAL: Middle aged woman, NAD, A&Ox3 HEAD: NCAT EYES: PERRL, extraocular movements intact, sclera anicteric, conjunctiva clear. No ptosis. ENT: Ears normal, nares patent, oropharynx clear without exudates, MMM NECK: Trachea midline, full range of motion, supple. LUNGS: Decreased air entry at bases. No wheezing appreciated. No crackles, rhonchi or accessory muscle use. HEART: Regular rate and rhythm, S1, S2 without murmur, rub or gallop. ABDOMEN: globular. Soft, nontender, nondistended, normoactive bowel sounds, no guarding, no rebound, no hepatosplenomegaly, no masses. EXTREMITIES: 2+ pulses, warm, well-perfused, trace pedal edema BL. NEUROLOGICAL: Cranial nerves II through XII grossly intact. Normal speech, gait not observed. PSYCH: Normal mood, normal affect SKIN: Warm, dry, normal turgor, no rashes or lesions noted Laboratory Results - last 24 hr CBC, BMP CBC, BMP 01/15/18 06:00 01/15/18 06:00 01/14/18 06:26 01/14/18 17:30 01/14/18 01/14/18 01/14/18 05:54 06:26 06:26 WBC 9.9 D RBC 4.35 Hgb 10.9 Hct 34.3 MCV 78.8 L MCH 25.0 L MCHC 31.8 L RDW 15.3 Plt Count 194 MPV 8.4 Neutrophils % 86.1 H Lymphocytes % 12.0 Monocytes % 1.8 L Eosinophils % 0.0 D Basophils % 0.1 Sodium 139 Potassium 4.4 Chloride 96 L Carbon Dioxide 36 H Anion Gap 7 L BUN 20 H Creatinine 0.7 Creat Clearance w eGFR > 60 POC Glucometer 368 Random Glucose 362 H* Calcium 8.5 Phosphorus 4.0 Magnesium 2.4 Total Bilirubin 0.6 AST 13 L ALT 35 Alkaline Phosphatase 88 Total Protein 6.4 Albumin 2.9 L 01/14/18 01/14/18 13:00 17:30 WBC RBC Hgb Hct MCV MCH MCHC RDW Plt Count MPV Neutrophils % Lymphocytes % Monocytes % Eosinophils % Basophils % Sodium Potassium Chloride Carbon Dioxide Anion Gap BUN Creatinine Creat Clearance w eGFR POC Glucometer Random Glucose 538 H* 490 H* Calcium Phosphorus Magnesium Total Bilirubin AST ALT Alkaline Phosphatase Total Protein Albumin Active Medications Generic Name Dose Route Start Last Admin Trade Name Freq PRN Reason Stop Dose Admin Albuterol Sulfate 1 amp 01/12/18 22:18 Ventolin 0.083% Nebulizer Soln - NEB Q4H PRN ASTHMA Albuterol/Ipratropium 1 amp 01/12/18 22:30 01/14/18 20:29 Duoneb - NEB 1 amp RQID STEVEN Administration Aspirin 81 mg 01/13/18 10:00 01/14/18 10:16 Asa - PO 81 mg DAILY STEVEN Administration Atorvastatin Calcium 40 mg 01/13/18 22:00 01/14/18 21:21 Lipitor - PO 40 mg HS STEVEN Administration Benzocaine/Menthol 1 each 01/14/18 11:05 Cepacol Lozenge - MM PRN PRN SORE THROAT Furosemide 40 mg 01/12/18 22:21 01/14/18 10:16 Lasix Injection - IVPUSH 40 mg DAILY STEVEN Administration Glipizide 10 mg 01/15/18 07:00 Glucotrol - PO DAILY@0700 STEVEN Glipizide 5 mg 01/14/18 16:30 01/14/18 17:42 Glucotrol - PO 5 mg DAILY@1630 STEVEN Administration Guaifenesin 5 ml 01/13/18 22:39 01/14/18 13:35 Diabetic Tussin Dm - PO 5 ml Q4H PRN Administration COUGH Heparin Sodium (Porcine) 5,000 unit 01/13/18 06:00 01/14/18 21:22 Heparin - SQ 5,000 unit TID STEVEN Administration Insulin Aspart 1 units 01/14/18 22:00 01/14/18 23:50 Novolog SQ Not Given HS STEVEN Protocol Insulin Aspart 1 vial 01/14/18 16:30 01/14/18 17:43 Novolog Vial Sliding Scale - SQ 12 unit TIDAC STEVEN Administration Protocol Insulin Detemir 15 units 01/14/18 07:00 01/14/18 06:24 Levemir Vial SQ 15 unit ACBK STEVEN Administration Methylprednisolone Sodium Succinate 40 mg 01/14/18 18:00 01/15/18 01:11 Solu-Medrol - IVPUSH 40 mg Q8H-IV STEVEN Administration Metoprolol Succinate 25 mg 01/13/18 10:00 01/14/18 10:16 Toprol Xl - PO 25 mg DAILY STEVEN Administration Montelukast Sodium 10 mg 01/13/18 22:00 01/14/18 21:21 Singulair - PO 10 mg HS STEVEN Administration Ranolazine 500 mg 01/13/18 10:00 01/14/18 21:22 Ranexa - PO 500 mg BID STEVEN Administration Microbiology 01/14/18 13:00 Nasopharyngeal Swab Influenza Types A,B Antigen (FELIPA) - Final 01/14/18 13:00 Nasopharyngeal Swab - Final ECHO 01/14 - LV function normal, EF 65-70%, RV function normal, mild TR, RV pressure normal CXR 01.12 - Since 04/06/2017, 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 Correlation recommended. CTA 01/12 - IMPRESSION: Limited examination, as described above with very poor enhancement of the distal pulmonary artery branches, in particular in the lower lobes. Otherwise, there is no evidence of a pulmonary embolus in the main pulmonary artery and its proximal bifurcations, bilaterally. Mild cardiomegaly. Borderline right paratracheal lymph node which is nonspecific. Scattered areas of atelectatic changes in the lung without gross evidence of focal infiltrates. Partially included over distended gallbladder CXR 01/15 - No active pulmonary dz ASSESSMENT/PLAN: 72 y/o f w/ pmh of asthma and CAD who presented to ED over the weekend for worsening SOB, likely to be in acute asthma exacerbation. #Acute Asthma Exacerbation - CTA neg, no evidence of PNA on imaging; flu negative - Solumedrol 40 q8h. Will decrease to BID tomorrow - duonebs standing and prn - pulm consulted - O2 prn - robitussin DM - cepacol - singulair qhs #Acute on chronic diastolic CHF - BNP 1400 on admission - Strict Is and Os - Lasix 40mg IV daily - Echo results noted - Cardiology consulted - Toprol XL/ ranexa #DM2 - A1C 9.2, persistently hyperglycemic - Endocrine consulted, recs appreciated - ISS - restarted home glipizide 10 + 5 - c/w home levemir 15u AM #CAD - c/w ASA - cards following - f/u as outpt - c/w lipitor #HypoK - 3.2 this AM - Repleted 40 kcl PO - trend PPX HSQ FEN Poor hydration daily lytes diabetic diet Plan discussed with Dr. Mary Ellen Eddy, PGY1 Visit type - Emergency Visit Emergency Visit: Yes ED Registration Date: 01/12/18 Care time: The patient presented to the Emergency Department on the above date and was hospitalized for further evaluation of their emergent condition. - New Patient This patient is new to me today: No - Critical Care Critical Care patient: No - Discharge Referral Referred to [facility] No
[2018-01-15 07:46] LABS: BASO % 0.1 % (0-2.0); HEMOGLOBIN 11.9 GM/dL (10.7-15.3); LYMPH % 12.1 % (8-40); MCH 25.3 pg (25.7-33.7); MEAN PLT VOLUME 8.6 fl (7.5-11.1); MONO % 2.4 % (3.8-10.2); NEUT % 85.4 % (42.8-82.8); PLATELET COUNT 232 K/MM3 (134-434); RBC 4.69 M/mm3 (3.60-5.2); RDW 15.1 % (11.6-15.6); WHITE BLOOD COUNT 10.9 K/mm3 (4.0-10.0)
[2018-01-15 07:47] LABS: ALBUMIN 3.2 g/dl (3.4-5.0); ANION GAP 5 (8-16); BLOOD UREA NITROGEN 22 mg/dL (7-18); CALCIUM 8.4 mg/dL (8.5-10.1); CHLORIDE 96 mmol/L (98-107); CO2 36 mmol/L (21-32); POTASSIUM 3.2 mmol/L (3.5-5.1); SGOT/AST 10 U/L (15-37); SGPT/ALT 32 U/L (12-78); SODIUM 137 mmol/L (136-145)
[2018-01-15 07:50] LABS: ALK PHOS 97 U/L (45-117); BILIRUBIN,TOTAL 0.5 mg/dL (0.2-1.0); CREATININE 0.9 mg/dL (0.55-1.02); TOT PROT 7.3 g/dl (6.4-8.2)
[2018-01-15] MEDS: ALBUTEROL SO4 2.5/IPRATROPIUM 0.5 INH SOL 3 ML VIAL.NEB. NEB SCH ×5 (08:01→20:21)
[2018-01-15 08:51] LABS: GLUCOSE,RANDOM 338 mg/dL (74-106)
[2018-01-15] MEDS: metoPROLOL SUCCINATE 25 MG TAB.SR.24H (FP) PO SCH (09:02)
[2018-01-15] MEDS: ASPIRIN 81 MG CHEWABLE TABLETS PO SCH (09:02)
[2018-01-15] MEDS: RANOLAZINE E.R. 500 MG TABLET (FP) PO SCH ×2 (09:02→21:21)
[2018-01-15] MEDS: FUROSEMIDE 40 MG/4 ML INJECTABLE VIAL IVPUSH SCH (09:02)
[2018-01-15] MEDS ORDERED: PT OWN MED DRAWER 7, Y5N ONE (09:11)
[2018-01-15] MEDS: guaiFENesin/D-M SUGAR-FREE/ACLHOL-FREE 118 ML BOTTLE PO PRN (09:12)
--- NOTE | 2018-01-15 09:52 | MSN ---
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 Patient denied any acute complaints overnight. No significant events on monitor. Patient was seen and examined at the bedside. Patient stated that she continued to have a cough that was dry and felt like there was sputum stuck in her throat that she was unable to cough up. She stated that she does not have shortness of breath at rest but has mild shortness of breath on exertion when she goes from the bathroom back to her bed. Patient states she has good appetite and has been able to move her bowels. Patient states that she continues to have mild muscular pain in her abdomen with a cough. Patient denies chest pain, fever, chills, weakness, lethargy, dizziness, lightheadedness, leg swelling, n/v/c/d. Recent Travel: recently returned from [facility] PAST MEDICAL HISTORY: Asthma, CAD, HTN, HLD, NIDDM PAST SURGICAL HISTORY: denies significant history Social History: Smoking: denies Alcohol: denies Drugs: denies REVIEW OF SYSTEMS CONSTITUTIONAL: Absent: fever, chills, diaphoresis, generalized weakness, malaise, loss of appetite, weight change HEENT: throat congestion Absent: rhinorrhea, nasal congestion, throat pain, throat swelling, difficulty swallowing, mouth swelling, ear pain, eye pain, visual changes CARDIOVASCULAR: Absent: chest pain, syncope, palpitations, irregular heart rate, lightheadedness , peripheral edema RESPIRATORY: shortness of breath, dry cough Absent: wheezing, dyspnea with exertion, orthopnea, stridor, hemoptysis GASTROINTESTINAL: abdominal pain with cough Absent: abdominal distension, nausea, vomiting, diarrhea, constipation, melena, hematochezia GENITOURINARY: Absent: dysuria, frequency, urgency, hesitancy, hematuria, flank pain, genital pain MUSCULOSKELETAL: Absent: myalgia, arthralgia, joint swelling, back pain, neck pain SKIN: Absent: rash, itching, pallor HEMATOLOGIC/IMMUNOLOGIC: Absent: easy bleeding, easy bruising, lymphadenopathy, frequent infections ENDOCRINE: Absent: unexplained weight gain, unexplained weight loss, heat intolerance, cold intolerance NEUROLOGIC: Absent: headache, focal weakness or paresthesias, dizziness, unsteady gait, seizure, mental status changes, bladder or bowel incontinence PSYCHIATRIC: Absent: anxiety, depression, suicidal or homicidal ideation, hallucinations. PHYSICAL EXAMINATION GENERAL: Awake, alert, and fully oriented, in no acute distress. HEAD: Normal with no signs of trauma. EARS, NOSE, THROAT: Moist mucous membranes. NECK: Normal range of motion, supple without lymphadenopathy, JVD, or masses. LUNGS: Breath sounds equal. Mild crackles on left middle and lower lobes, no wheezes no accessory muscle use. HEART: Regular rate and rhythm, normal S1 and S2 without murmur, rub or gallop. ABDOMEN: Soft, nontender, not distended, normoactive bowel sounds, no guarding, no rebound, no masses. No hepatomegaly or splenomegaly. MUSCULOSKELETAL: Normal range of motion at all joints. No bony deformities or tenderness. No CVA tenderness. UPPER EXTREMITIES: 2+ pulses, warm, well-perfused. No cyanosis. No clubbing. Cap refill <2 seconds. No peripheral edema. LOWER EXTREMITIES: 2+ pulses, warm, well-perfused. No calf tenderness. Trace peripheral edema. Varicosities noted. NEUROLOGICAL: Cranial nerves II-XII intact. Normal speech. Normal gait. PSYCHIATRIC: Cooperative. Good eye contact. Appropriate mood and affect. SKIN: Warm, dry, normal turgor, no rashes or lesions noted. Allergies Allergy/AdvReac Type Severity Reaction Status Date / Time No Known Allergies Allergy Verified 01/12/18 14:54 Current Medications Generic Name Dose Route Start Last Admin Trade Name Freq PRN Reason Stop Dose Admin Albuterol Sulfate 1 amp 01/12/18 22:18 Ventolin 0.083% Nebulizer Soln - NEB Q4H PRN ASTHMA Albuterol/Ipratropium 1 amp 01/12/18 22:30 01/15/18 08:01 Duoneb - NEB 1 amp RQID STEVEN Administration Aspirin 81 mg 01/13/18 10:00 01/15/18 09:02 Asa - PO 81 mg DAILY STEVEN Administration Atorvastatin Calcium 40 mg 01/13/18 22:00 01/14/18 21:21 Lipitor - PO 40 mg HS STEVEN Administration Benzocaine/Menthol 1 each 01/14/18 11:05 Cepacol Lozenge - MM PRN PRN SORE THROAT Furosemide 40 mg 01/12/18 22:21 01/15/18 09:02 Lasix Injection - IVPUSH 40 mg DAILY STEVEN Administration Glipizide 10 mg 01/15/18 07:00 01/15/18 06:08 Glucotrol - PO 10 mg DAILY@0700 STEVEN Administration Glipizide 5 mg 01/14/18 16:30 01/14/18 17:42 Glucotrol - PO 5 mg DAILY@1630 STEVEN Administration Guaifenesin 5 ml 01/13/18 22:39 01/15/18 09:12 Diabetic Tussin Dm - PO 5 ml Q4H PRN Administration COUGH Heparin Sodium (Porcine) 5,000 unit 01/13/18 06:00 01/15/18 06:09 Heparin - SQ 5,000 unit TID STEVEN Administration Insulin Aspart 1 units 01/14/18 22:00 01/14/18 23:50 Novolog SQ Not Given HS [facility] Protocol Insulin Aspart 1 vial 01/14/18 16:30 01/15/18 06:09 Novolog Vial Sliding Scale - SQ 12 unit TIDAC STEVEN Administration Protocol Insulin Detemir 15 units 01/14/18 07:00 01/15/18 06:10 Levemir Vial SQ 15 unit ACBK STEVEN Administration Methylprednisolone Sodium Succinate 40 mg 01/14/18 18:00 01/15/18 09:02 Solu-Medrol - IVPUSH 40 mg Q8H-IV STEVEN Administration Metoprolol Succinate 25 mg 01/13/18 10:00 01/15/18 09:02 Toprol Xl - PO 25 mg DAILY STEVEN Administration Montelukast Sodium 10 mg 01/13/18 22:00 01/14/18 21:21 Singulair - PO 10 mg HS STEVEN Administration Potassium Chloride 40 meq 01/15/18 09:30 Potassium Chloride Oral Liquid PO 01/15/18 09:31 ONCE ONE Ranolazine 500 mg 01/13/18 10:00 01/15/18 09:02 Ranexa - PO 500 mg BID STEVEN Administration IMAGING CHEST X-RAY: No acute evidence of infiltrate or pleural fluid - 01/15 - shows no active pulmonary disease CHEST CT: Scattered areas of atelectic changes, no acute evidence of pulmonary emboli. ECHOCARDIOGRAM: LVEF 65-70% and normal size. essentially unchanged since previous echo in 2016 ASSESSMENT/PLAN: Patient is a 72 year old female with a PMHx of asthma and NIDDM who presented with increased shortness of breath and wheezing. Acute Asthma Exacerbation - CT scan negative for PE - Solumedrol 40mg IV q8h will be changed to q12h in AM - Duoneb qid and q4h prn - Singular 10mg qhs - O2 as needed - incentive spirometry encouraged - flu swab negative - able to ambulate 100ft with PT, continue to work with PT Acute Heart Failure Decompensation - IV Lasix 40mg - Echo is within normal limits - continue aspirin, Ranexa, Toprol Diabetes Mellitus - HA1C 9.6 - Levemir 15mg qhs - ISS - BGM - glipizide 10mg in the morning, 5mg nightly Cough - cepacol lozenge - Diabetic Tussin DM HTN - toprol XL 25mg daily HLD - Lipitor 40mg daily F/E/N - hold IV fluids - K at 3.2, repleted - replete as necessary - low sodium diet DVT PPx - heparin 5000 subq tid Disposition - admitted to telemetry Problem List - Problems (1) Acute asthma exacerbation Code(s): J45.901 - UNSPECIFIED ASTHMA WITH (ACUTE) EXACERBATION Qualifiers: Asthma severity: moderate (2) Diabetes Code(s): E11.9 - TYPE 2 DIABETES MELLITUS WITHOUT COMPLICATIONS Qualifiers: Diabetes mellitus type: type 2 (3) HTN (hypertension) Code(s): I10 - ESSENTIAL (PRIMARY) HYPERTENSION Qualifiers: Hypertension type: essential hypertension Qualified Code(s): I10 - Essential (primary) hypertension (4) Hyperlipidemia Code(s): E78.5 - HYPERLIPIDEMIA, UNSPECIFIED Qualifiers: Hyperlipidemia type: pure hypercholesterolemia Qualified Code(s): E78.00 - Pure hypercholesterolemia, unspecified; E78.0 - Pure hypercholesterolemia
[2018-01-15] MEDS ORDERED: POTASSIUM CHLORIDE ORAL LIQUID 20 MEQ/15 ML PO ONE (10:00)
--- NOTE | 2018-01-15 11:11 | PN ---
Progress Note, Physician History of Present Illness: pulmonary alert,less dyspneic,+ dry cough - Current Medication List Current Medications: Active Medications Albuterol Sulfate (Ventolin 0.083% Nebulizer Soln -) 1 amp NEB Q4H PRN PRN Reason: ASTHMA Albuterol/Ipratropium (Duoneb -) 1 amp NEB RQID [facility] Last Admin: 01/15/18 08:01 Dose: 1 amp Aspirin (Asa -) 81 mg PO DAILY [facility] Last Admin: 01/15/18 09:02 Dose: 81 mg Atorvastatin Calcium (Lipitor -) 40 mg PO HS [facility] Last Admin: 01/14/18 21:21 Dose: 40 mg Benzocaine/Menthol (Cepacol Lozenge -) 1 each MM PRN PRN PRN Reason: SORE THROAT Furosemide (Lasix Injection -) 40 mg IVPUSH DAILY [facility] Last Admin: 01/15/18 09:02 Dose: 40 mg Glipizide (Glucotrol -) 10 mg PO DAILY@0700 [facility] Last Admin: 01/15/18 06:08 Dose: 10 mg Glipizide (Glucotrol -) 5 mg PO DAILY@1630 [facility] Last Admin: 01/14/18 17:42 Dose: 5 mg Guaifenesin (Diabetic Tussin Dm -) 5 ml PO Q4H PRN PRN Reason: COUGH Last Admin: 01/15/18 09:12 Dose: 5 ml Heparin Sodium (Porcine) (Heparin -) 5,000 unit SQ TID [facility] Last Admin: 01/15/18 06:09 Dose: 5,000 unit Insulin Aspart (Novolog) 1 units SQ [facility] PRN Reason: Protocol Last Admin: 01/14/18 23:50 Dose: Not Given Insulin Aspart (Novolog Vial Sliding Scale -) 1 vial SQ TIDAC [facility] PRN Reason: Protocol Last Admin: 01/15/18 06:09 Dose: 12 unit Insulin Detemir (Levemir Vial) 15 units SQ ACBK [facility] Last Admin: 01/15/18 06:10 Dose: 15 unit Methylprednisolone Sodium Succinate (Solu-Medrol -) 40 mg IVPUSH Q8H-IV [facility] Last Admin: 01/15/18 09:02 Dose: 40 mg Metoprolol Succinate (Toprol Xl -) 25 mg PO DAILY [facility] Last Admin: 01/15/18 09:02 Dose: 25 mg Montelukast Sodium (Singulair -) 10 mg PO HS [facility] Last Admin: 01/14/18 21:21 Dose: 10 mg Ranolazine (Ranexa -) 500 mg PO BID [facility] Last Admin: 01/15/18 09:02 Dose: 500 mg - Objective Vital Signs: Vital Signs Temperature 97.6 F 01/15/18 10:00 Pulse Rate 68 01/15/18 10:00 Respiratory Rate 18 01/15/18 10:00 Blood Pressure 142/82 01/15/18 10:00 O2 Sat by Pulse Oximetry (%) 93 L 01/15/18 09:00 Constitutional: Yes: Well Nourished, Calm Eyes: Yes: WNL HENT: Yes: WNL Neck: Yes: WNL Cardiovascular: Yes: Regular Rate and Rhythm, S1, S2 Respiratory: Yes: Wheezes (less wheezes bilaterally) Gastrointestinal: Yes: Normal Bowel Sounds, Soft Extremities: Yes: WNL Edema: No Labs: CBC, BMP 01/15/18 06:00 01/15/18 06:00 Assessment/Plan Problem List - Problems (1) Acute asthma exacerbation Code(s): J45.901 - UNSPECIFIED ASTHMA WITH (ACUTE) EXACERBATION (2) Diabetes Code(s): E11.9 - TYPE 2 DIABETES MELLITUS WITHOUT COMPLICATIONS (3) HTN (hypertension) Code(s): I10 - ESSENTIAL (PRIMARY) HYPERTENSION (4) Hyperlipidemia Code(s): E78.5 - HYPERLIPIDEMIA, UNSPECIFIED Assessment/Plan Acute Asthma Exacerbation improving CAD HTN DM Hyperlipidemia - IV medrol taper - inhaled bronchodilators standing and PRN - singulair - monitor peak flow - glucose control while on systemic steroids - O2 as needed - DVT prophylaxis - monitor peak flow - incentive spirometer - pfts outpatient DR CASANOVA
--- NOTE | 2018-01-15 11:59 | PN ---
Progress Note (short form) - Note Progress Note: Feels better Less SOB Vital Signs Period Temp Pulse Resp BP Sys/Fong Pulse Ox Last 24 Hr 97.6 F-98.6 F 68-90 16-20 130-150/57-84 93-93 PE: AOx3 Neck: supple HEENT: EOMO Lungs: CTA CVS: S1S2 Abd: Benign Ext: No edema Neuro: No focal deficit CMP Sodium 137 mmol/L (136-145) 01/15/18 06:00 Potassium 3.2 mmol/L (3.5-5.1) L 01/15/18 06:00 Chloride 96 mmol/L (98-107) L 01/15/18 06:00 Carbon Dioxide 36 mmol/L (21-32) H 01/15/18 06:00 Anion Gap 5 (8-16) L 01/15/18 06:00 BUN 22 mg/dL (7-18) H 01/15/18 06:00 Creatinine 0.9 mg/dL (0.55-1.02) 01/15/18 06:00 Creat Clearance w eGFR > 60 (>60) 01/15/18 06:00 POC Glucometer 387 UNITS (80-120) 01/15/18 10:51 Random Glucose 338 mg/dL (74-106) H* 01/15/18 06:00 Hemoglobin A1c % 9.6 % (4.8-6.0) H 01/13/18 07:04 Calcium 8.4 mg/dL (8.5-10.1) L 01/15/18 06:00 Phosphorus 4.0 mg/dL (2.5-4.9) 01/14/18 06:26 Magnesium 2.4 mg/dL (1.8-2.4) 01/14/18 06:26 Total Bilirubin 0.5 mg/dL (0.2-1.0) 01/15/18 06:00 AST 10 U/L (15-37) L 01/15/18 06:00 ALT 32 U/L (12-78) 01/15/18 06:00 Alkaline Phosphatase 97 U/L (45-117) 01/15/18 06:00 Creatine Kinase 55 IU/L (26-192) 01/12/18 16:57 Troponin I 0.04 ng/ml (0.00-0.05) 01/12/18 16:57 B-Natriuretic Peptide 1400.12 pg/ml (5-125) H 01/12/18 16:57 Total Protein 7.3 g/dl (6.4-8.2) 01/15/18 06:00 Albumin 3.2 g/dl (3.4-5.0) L 01/15/18 06:00 Triglycerides 91 mg/dL (35-160) 01/13/18 07:04 Cholesterol 149 mg/dL (50-200) 01/13/18 07:04 Total LDL Cholesterol 92 mg/dL (5-100) 01/13/18 07:04 HDL Cholesterol 48 mg/dL (40-60) 01/13/18 07:04 Current Medications Generic Name Dose Route Start Last Admin Trade Name Freq PRN Reason Stop Dose Admin Albuterol Sulfate 1 amp 01/12/18 22:18 Ventolin 0.083% Nebulizer Soln - NEB Q4H PRN ASTHMA Albuterol/Ipratropium 1 amp 01/12/18 22:30 01/15/18 08:01 Duoneb - NEB 1 amp RQID [facility] Administration Aspirin 81 mg 01/13/18 10:00 01/15/18 09:02 Asa - PO 81 mg DAILY [facility] Administration Atorvastatin Calcium 40 mg 01/13/18 22:00 01/14/18 21:21 Lipitor - PO 40 mg HS [facility] Administration Benzocaine/Menthol 1 each 01/14/18 11:05 Cepacol Lozenge - MM PRN PRN SORE THROAT Furosemide 40 mg 01/12/18 22:21 01/15/18 09:02 Lasix Injection - IVPUSH 40 mg DAILY [facility] Administration Glipizide 10 mg 01/15/18 07:00 01/15/18 06:08 Glucotrol - PO 10 mg DAILY@0700 [facility] Administration Glipizide 5 mg 01/14/18 16:30 01/14/18 17:42 Glucotrol - PO 5 mg DAILY@1630 [facility] Administration Guaifenesin 5 ml 01/13/18 22:39 01/15/18 09:12 Diabetic Tussin Dm - PO 5 ml Q4H PRN Administration COUGH Heparin Sodium (Porcine) 5,000 unit 01/13/18 06:00 01/15/18 06:09 Heparin - SQ 5,000 unit TID [facility] Administration Insulin Aspart 1 units 01/14/18 22:00 01/14/18 23:50 Novolog SQ Not Given HS [facility] Protocol Insulin Aspart 1 vial 01/14/18 16:30 01/15/18 11:54 Novolog Vial Sliding Scale - SQ 14 unit TIDAC [facility] Administration Protocol Insulin Detemir 15 units 01/14/18 07:00 01/15/18 06:10 Levemir Vial SQ 15 unit ACBK [facility] Administration Methylprednisolone Sodium Succinate 40 mg 01/14/18 18:00 01/15/18 09:02 Solu-Medrol - IVPUSH 40 mg Q8H-IV [facility] Administration Metoprolol Succinate 25 mg 01/13/18 10:00 01/15/18 09:02 Toprol Xl - PO 25 mg DAILY [facility] Administration Montelukast Sodium 10 mg 01/13/18 22:00 01/14/18 21:21 Singulair - PO 10 mg HS [facility] Administration Ranolazine 500 mg 01/13/18 10:00 01/15/18 09:02 Ranexa - PO 500 mg BID [facility] Administration AP: Acute Asthma Exacerbation T2DM uncontrolled CAD HTN Hyperlipidemia BGM QACHS Increase Novolog Coverage Continue Levemir 15 daily Glipizide 10 + 5 Diet exercise discussed May need to take Insulin at home too at least until she is on steroids if she is discharged on it. Nutrition consult IV medrol bronchodilators standing and PRN O2 as needed
--- NOTE | 2018-01-15 15:56 | PN ---
Teaching Attending Note Name of Resident: Gage Eddy ATTENDING PHYSICIAN STATEMENT I saw and evaluated the patient. I reviewed the resident's note and discussed the case with the resident. I agree with the resident's findings and plan as documented. SUBJECTIVE: Patient feels she is breathing better. OBJECTIVE: Vital Signs Period Temp Pulse Resp BP Sys/Fong Pulse Ox Last 24 Hr 97.6 F-98.6 F 68-82 16-20 130-150/57-84 93-93 HEART: S1S2, RRR LUNGS: (+) anterior rhonchi ABDOMEN: Obese, soft, non-tender, non-distended, normal BS EXTREMITIES: (+) edema of RLE Laboratory Results - last 24 hr 01/14/18 01/14/18 01/14/18 11:42 16:49 17:30 WBC RBC Hgb Hct MCV MCH MCHC RDW Plt Count MPV Neutrophils % Lymphocytes % Monocytes % Eosinophils % Basophils % Sodium Potassium Chloride Carbon Dioxide Anion Gap BUN Creatinine Creat Clearance w eGFR POC Glucometer 473 463 Random Glucose 490 H* Calcium Total Bilirubin AST ALT Alkaline Phosphatase Total Protein Albumin 01/14/18 01/15/18 01/15/18 21:20 06:00 06:00 WBC 10.9 H RBC 4.69 Hgb 11.9 Hct 37.0 MCV 79.0 L MCH 25.3 L MCHC 32.0 RDW 15.1 Plt Count 232 MPV 8.6 Neutrophils % 85.4 H Lymphocytes % 12.1 Monocytes % 2.4 L Eosinophils % 0.0 Basophils % 0.1 Sodium 137 Potassium 3.2 L Chloride 96 L Carbon Dioxide 36 H Anion Gap 5 L BUN 22 H Creatinine 0.9 Creat Clearance w eGFR > 60 POC Glucometer 448 Random Glucose 338 H* Calcium 8.4 L Total Bilirubin 0.5 AST 10 L ALT 32 Alkaline Phosphatase 97 Total Protein 7.3 Albumin 3.2 L 01/15/18 01/15/18 06:08 10:51 WBC RBC Hgb Hct MCV MCH MCHC RDW Plt Count MPV Neutrophils % Lymphocytes % Monocytes % Eosinophils % Basophils % Sodium Potassium Chloride Carbon Dioxide Anion Gap BUN Creatinine Creat Clearance w eGFR POC Glucometer 338 387 Random Glucose Calcium Total Bilirubin AST ALT Alkaline Phosphatase Total Protein Albumin Current Medications Generic Name Dose Route Start Last Admin Trade Name Freq PRN Reason Stop Dose Admin Albuterol Sulfate 1 amp 01/12/18 22:18 05/01/18 12:00 Ventolin 0.083% Nebulizer Soln - NEB 1 amp Q4H PRN Administration ASTHMA Albuterol/Ipratropium 1 amp 01/12/18 22:30 01/15/18 13:18 Duoneb - NEB Not Given RQID [facility] Aspirin 81 mg 01/13/18 10:00 01/15/18 09:02 Asa - PO 81 mg DAILY [facility] Administration Atorvastatin Calcium 40 mg 01/13/18 22:00 01/14/18 21:21 Lipitor - PO 40 mg HS [facility] Administration Benzocaine/Menthol 1 each 01/14/18 11:05 Cepacol Lozenge - MM PRN PRN SORE THROAT Furosemide 40 mg 01/12/18 22:21 01/15/18 09:02 Lasix Injection - IVPUSH 40 mg DAILY [facility] Administration Glipizide 10 mg 01/15/18 07:00 01/15/18 06:08 Glucotrol - PO 10 mg DAILY@0700 [facility] Administration Glipizide 5 mg 01/14/18 16:30 01/14/18 17:42 Glucotrol - PO 5 mg DAILY@1630 [facility] Administration Guaifenesin 5 ml 01/13/18 22:39 01/15/18 09:12 Diabetic Tussin Dm - PO 5 ml Q4H PRN Administration COUGH Heparin Sodium (Porcine) 5,000 unit 01/13/18 06:00 01/15/18 13:08 Heparin - SQ 5,000 unit TID [facility] Administration Insulin Aspart 1 units 01/14/18 22:00 01/14/18 23:50 Novolog SQ Not Given HS [facility] Protocol Insulin Aspart 1 vial 01/15/18 11:59 Novolog Vial Sliding Scale - SQ TIDAC [facility] Protocol Insulin Detemir 15 units 01/14/18 07:00 01/15/18 06:10 Levemir Vial SQ 15 unit ACBK [facility] Administration Methylprednisolone Sodium Succinate 40 mg 01/14/18 18:00 01/15/18 09:02 Solu-Medrol - IVPUSH 40 mg Q8H-IV [facility] Administration Metoprolol Succinate 25 mg 01/13/18 10:00 01/15/18 09:02 Toprol Xl - PO 25 mg DAILY [facility] Administration Montelukast Sodium 10 mg 01/13/18 22:00 04/30/18 21:21 Singulair - PO 10 mg HS [facility] Administration Ranolazine 500 mg 01/13/18 10:00 01/15/18 09:02 Ranexa - PO 500 mg BID [facility] Administration ASSESSMENT AND PLAN: This is a 73 year old woman with a history of asthma, CAD, HTN, hyperlipidemia, type 2 DM who presented to the ED with shortness of breath and wheezing. 1. Acute asthma exacerbation - SoluMedrol being tapered - Continue Singulair, DuoNeb, albuterol nebs as needed 2. Acute diastolic heart failure - Continue Lasix IV 3. CAD, history of stent - Continue aspirin, Toprol XL, Lipitor, Ranexa 4. HTN - Continue Toprol XL 5. Hyperlipidemia - Continue Lipitor 6. Type 2 diabetes mellitus, uncontro - Continue Levemir, Glucotrol, Novolog sliding scale - Taper steroids and monitor fingersticks
--- NOTE | 2018-01-15 16:19 | PN ---
Progress Note, Physician Chief Complaint: Pt is sitting in chair; A&Ox3; easilyt dyspneic with mild exertion (walking across room). Pt's daughteer is at bedside. History of Present Illness: Patient is a 72 year old female (b. Angela) with a PMH of CAD (s/p stent), HTN, HLD, NIDDM, morbid obesity, and asthma, who presents to our ED c/o worsening shortness of breath and cough. Patient states she has been having intermittently productive (whitish sputum) cough for 2-3 weeks with some dyspnea on exertion for 2-3 months. Endorses associated pleuritic chest pain. Patient returned from a trip to [facility] today and daughter brought her to ED for evaluation. As per EMR, patient evaluated in 03/2017 for pre-syncope at which time cardiac enzymes were negative and ECG showed no arrythymia - Current Medication List Current Medications: Active Medications Albuterol Sulfate (Ventolin 0.083% Nebulizer Soln -) 1 amp NEB Q4H PRN PRN Reason: ASTHMA Last Admin: 01/15/18 12:00 Dose: 1 amp Albuterol/Ipratropium (Duoneb -) 1 amp NEB RQID [facility] Last Admin: 01/15/18 13:18 Dose: Not Given Aspirin (Asa -) 81 mg PO DAILY [facility] Last Admin: 01/15/18 09:02 Dose: 81 mg Atorvastatin Calcium (Lipitor -) 40 mg PO HS [facility] Last Admin: 01/14/18 21:21 Dose: 40 mg Benzocaine/Menthol (Cepacol Lozenge -) 1 each MM PRN PRN PRN Reason: SORE THROAT Furosemide (Lasix Injection -) 40 mg IVPUSH DAILY [facility] Last Admin: 01/15/18 09:02 Dose: 40 mg Glipizide (Glucotrol -) 10 mg PO DAILY@0700 [facility] Last Admin: 01/15/18 06:08 Dose: 10 mg Glipizide (Glucotrol -) 5 mg PO DAILY@1630 [facility] Last Admin: 01/14/18 17:42 Dose: 5 mg Guaifenesin (Diabetic Tussin Dm -) 5 ml PO Q4H PRN PRN Reason: COUGH Last Admin: 01/15/18 09:12 Dose: 5 ml Heparin Sodium (Porcine) (Heparin -) 5,000 unit SQ TID [facility] Last Admin: 01/15/18 13:08 Dose: 5,000 unit Insulin Aspart (Novolog) 1 units SQ HS [facility] PRN Reason: Protocol Last Admin: 01/14/18 23:50 Dose: Not Given Insulin Aspart (Novolog Vial Sliding Scale -) 1 vial SQ TIDAC [facility] PRN Reason: Protocol Insulin Detemir (Levemir Vial) 15 units SQ ACBK [facility] Last Admin: 01/15/18 06:10 Dose: 15 unit Methylprednisolone Sodium Succinate (Solu-Medrol -) 40 mg IVPUSH Q8H-IV [facility] Last Admin: 01/15/18 09:02 Dose: 40 mg Metoprolol Succinate (Toprol Xl -) 25 mg PO DAILY [facility] Last Admin: 01/15/18 09:02 Dose: 25 mg Montelukast Sodium (Singulair -) 10 mg PO [facility] Last Admin: 01/14/18 21:21 Dose: 10 mg Ranolazine (Ranexa -) 500 mg PO BID [facility] Last Admin: 01/15/18 09:02 Dose: 500 mg - Objective Vital Signs: Vital Signs Temperature 97.9 F 01/15/18 14:19 Pulse Rate 82 01/15/18 14:19 Respiratory Rate 16 01/15/18 14:19 Blood Pressure 140/75 01/15/18 14:19 O2 Sat by Pulse Oximetry (%) 93 L 01/15/18 09:00 Constitutional: Yes: Calm Eyes: Yes: WNL HENT: Yes: WNL Neck: Yes: WNL Cardiovascular: Yes: Regular Rate and Rhythm Respiratory: Yes: Diminished Gastrointestinal: Yes: Soft, Abdomen, Obese ...Rectal Exam: Yes: Deferred Genitourinary: No: Anuria Musculoskeletal: Yes: Muscle Weakness Extremities: Yes: WNL Edema: No Peripheral Pulses WNL: Yes Integumentary: Yes: WNL Psychiatric: Yes: Alert, Oriented Labs: CBC, BMP 01/15/18 06:00 01/15/18 06:00 Problem List - Problems (1) Acute asthma exacerbation Assessment/Plan: Continue bronchodilators and steroids (presently IV) per manager paid. The importance of weight loss and increase in exercise was discussed. Recommend sleep studies to r/o sleep apnea. Code(s): J45.901 - UNSPECIFIED ASTHMA WITH (ACUTE) EXACERBATION Qualifiers: Asthma severity: moderate (2) Atypical chest pain Code(s): R07.89 - OTHER CHEST PAIN (3) Diabetes Code(s): E11.9 - TYPE 2 DIABETES MELLITUS WITHOUT COMPLICATIONS Qualifiers: Diabetes mellitus type: type 2 (4) Dizziness Code(s): R42 - DIZZINESS AND GIDDINESS (5) HTN (hypertension) Code(s): I10 - ESSENTIAL (PRIMARY) HYPERTENSION Qualifiers: Hypertension type: essential hypertension Qualified Code(s): I10 - Essential (primary) hypertension (6) Hyperlipidemia Code(s): E78.5 - HYPERLIPIDEMIA, UNSPECIFIED Qualifiers: Hyperlipidemia type: pure hypercholesterolemia Qualified Code(s): E78.00 - Pure hypercholesterolemia, unspecified; E78.0 - Pure hypercholesterolemia (7) Obese Code(s): E66.9 - OBESITY, UNSPECIFIED (8) Syncope, near Code(s): R55 - SYNCOPE AND COLLAPSE (9) Sleep apnea Assessment/Plan: sleep studies to r/o sleep apnea. Code(s): G47.30 - SLEEP APNEA, UNSPECIFIED
[2018-01-15] MEDS: ATORVASTATIN CA 40 MG TABLET (FP) PO SCH (21:20)
[2018-01-15] MEDS: MONTELUKAST NA 10 MG TABLET PO SCH (21:21)
[2018-01-15] MEDS: Insulin (LOG) Aspart 100 UNITS/ML VIAL SQ SCH (21:30)
[2018-01-15] MEDS ORDERED: INSULIN (NOVOLOG) ASPART 100 UNITS/ML 10ML VIAL SQ ONE (21:30)
[2018-01-16] MEDS: methylPREDNISolone NA SUCC 40 MG/1 ML VIAL IVPUSH SCH ×3 (01:00→21:55)
--- NOTE | 2018-01-16 05:30 | PN ---
Physical Exam: SUBJECTIVE: Patient seen and examined -No major overnight events; BGMs better controlled in 300s yesterday; desatting to 87% with ambulation with PT; VSS - Pt states her breathing is improved; still endorses phlegm in upper airway with poor mobilization; No Bm for 3 days, tolerating feeds; denies f/c/n/v/d, cp , back pain, LE edema; mild ab pain with coughing OBJECTIVE: Vital Signs Intake & Output 01/13/18 01/14/18 01/15/18 01/16/18 23:59 23:59 23:59 23:59 Intake Total 160 1050 1350 Output Total 1550 Balance 160 1050 -200 Weight 85.417 kg 87.6 kg 87.543 kg Period Temp Pulse Resp BP Sys/Fong Pulse Ox Last 24 Hr 97.3 F-98.6 F 62-82 16-20 135-154/52-84 93-94 GENERAL: Middle aged woman, NAD, A&Ox3 HEAD: NCAT EYES: PERRL, extraocular movements intact, sclera anicteric, conjunctiva clear. No ptosis. ENT: Ears normal, nares patent, oropharynx clear without exudates, MMM NECK: Trachea midline, full range of motion, supple. LUNGS: Decreased air entry diffusely. No wheezing appreciated. No crackles, rhonchi or accessory muscle use. HEART: Regular rate and rhythm, S1, S2 without murmur, rub or gallop. ABDOMEN: Globular. Soft, nontender, nondistended, normoactive bowel sounds, no guarding, no rebound, no hepatosplenomegaly, no masses. EXTREMITIES: 2+ pulses, warm, well-perfused, trace pedal edema BL. NEUROLOGICAL: Cranial nerves II through XII grossly intact. Normal speech, gait not observed. PSYCH: Normal mood, normal affect SKIN: Warm, dry, normal turgor, no rashes or lesions noted Laboratory Results - last 24 hr CBC, BMP 01/16/18 05:35 01/15/18 06:00 01/15/18 06:00 01/14/18 01/14/18 01/14/18 11:42 16:49 21:20 WBC RBC Hgb Hct MCV MCH MCHC RDW Plt Count MPV Neutrophils % Lymphocytes % Monocytes % Eosinophils % Basophils % Sodium Potassium Chloride Carbon Dioxide Anion Gap BUN Creatinine Creat Clearance w eGFR POC Glucometer 473 463 448 Random Glucose Calcium Total Bilirubin AST ALT Alkaline Phosphatase Total Protein Albumin 01/15/18 01/15/18 01/15/18 06:00 06:00 06:08 WBC 10.9 H RBC 4.69 Hgb 11.9 Hct 37.0 MCV 79.0 L MCH 25.3 L MCHC 32.0 RDW 15.1 Plt Count 232 MPV 8.6 Neutrophils % 85.4 H Lymphocytes % 12.1 Monocytes % 2.4 L Eosinophils % 0.0 Basophils % 0.1 Sodium 137 Potassium 3.2 L Chloride 96 L Carbon Dioxide 36 H Anion Gap 5 L BUN 22 H Creatinine 0.9 Creat Clearance w eGFR > 60 POC Glucometer 338 Random Glucose 338 H* Calcium 8.4 L Total Bilirubin 0.5 AST 10 L ALT 32 Alkaline Phosphatase 97 Total Protein 7.3 Albumin 3.2 L 01/15/18 01/15/18 10:51 23:37 WBC RBC Hgb Hct MCV MCH MCHC RDW Plt Count MPV Neutrophils % Lymphocytes % Monocytes % Eosinophils % Basophils % Sodium Potassium Chloride Carbon Dioxide Anion Gap BUN Creatinine Creat Clearance w eGFR POC Glucometer 387 339 Random Glucose Calcium Total Bilirubin AST ALT Alkaline Phosphatase Total Protein Albumin Active Medications Generic Name Dose Route Start Last Admin Trade Name Freq PRN Reason Stop Dose Admin Albuterol Sulfate 1 amp 01/12/18 22:18 01/15/18 12:00 Ventolin 0.083% Nebulizer Soln - NEB 1 amp Q4H PRN Administration ASTHMA Albuterol/Ipratropium 1 amp 01/12/18 22:30 01/15/18 20:21 Duoneb - NEB 1 amp RQID [facility] Administration Aspirin 81 mg 01/13/18 10:00 01/15/18 09:02 Asa - PO 81 mg DAILY [facility] Administration Atorvastatin Calcium 40 mg 01/13/18 22:00 01/15/18 21:20 Lipitor - PO 40 mg HS [facility] Administration Benzocaine/Menthol 1 each 01/14/18 11:05 Cepacol Lozenge - MM PRN PRN SORE THROAT Furosemide 40 mg 01/12/18 22:21 01/15/18 09:02 Lasix Injection - IVPUSH 40 mg DAILY [facility] Administration Glipizide 10 mg 01/15/18 07:00 01/15/18 06:08 Glucotrol - PO 10 mg DAILY@0700 [facility] Administration Glipizide 5 mg 01/14/18 16:30 01/15/18 17:15 Glucotrol - PO 5 mg DAILY@1630 [facility] Administration Guaifenesin 5 ml 01/13/18 22:39 01/15/18 09:12 Diabetic Tussin Dm - PO 5 ml Q4H PRN Administration COUGH Heparin Sodium (Porcine) 5,000 unit 01/13/18 06:00 01/15/18 21:20 Heparin - SQ 5,000 unit TID [facility] Administration Insulin Aspart 1 units 01/14/18 22:00 01/15/18 21:30 Novolog SQ Not Given HS [facility] Protocol Insulin Aspart 1 vial 01/15/18 11:59 01/15/18 17:15 Novolog Vial Sliding Scale - SQ 18 unit TIDAC [facility] Administration Protocol Insulin Detemir 15 units 01/14/18 07:00 01/15/18 06:10 Levemir Vial SQ 15 unit ACBK [facility] Administration Methylprednisolone Sodium Succinate 40 mg 01/14/18 18:00 01/16/18 01:00 Solu-Medrol - IVPUSH 40 mg Q8H-IV [facility] Administration Metoprolol Succinate 25 mg 01/13/18 10:00 01/15/18 09:02 Toprol Xl - PO 25 mg DAILY [facility] Administration Montelukast Sodium 10 mg 01/13/18 22:00 01/15/18 21:21 Singulair - PO 10 mg HS [facility] Administration Ranolazine 500 mg 01/13/18 10:00 01/15/18 21:21 Ranexa - PO 500 mg BID [facility] Administration Microbiology 01/14/18 13:00 Nasopharyngeal Swab Influenza Types A,B Antigen (FELIPA) - Final 01/14/18 13:00 Nasopharyngeal Swab - Final ECHO 01/14 - LV function normal, EF 65-70%, RV function normal, mild TR, RV pressure normal CXR . - Since 04/06/2017, 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 Correlation recommended. CTA 01/12 - IMPRESSION: Limited examination, as described above with very poor enhancement of the distal pulmonary artery branches, in particular in the lower lobes. Otherwise, there is no evidence of a pulmonary embolus in the main pulmonary artery and its proximal bifurcations, bilaterally. Mild cardiomegaly. Borderline right paratracheal lymph node which is nonspecific. Scattered areas of atelectatic changes in the lung without gross evidence of focal infiltrates. Partially included over distended gallbladder CXR 01/15 - No active pulmonary dz ASSESSMENT/PLAN: 72 y/o f w/ pmh of asthma and CAD who presented to ED over the weekend for worsening SOB, likely to be in acute asthma exacerbation. Will likely go tomorrow on short course of PO steroids. #Acute Asthma Exacerbation - CTA neg, no evidence of PNA on imaging; flu negative - Solumedrol 40 BID. PO steroids tomorrow - duonebs standing and prn - pulm consulted - O2 prn - robitussin DM - cepacol - singulair qhs - f/u peak flows - repeat pre and post tomorrow before discharge - consider sleep studies as outpt #Acute on chronic diastolic CHF - BNP 1400 on admission - Strict Is and Os - Lasix 40mg IV daily - Echo results noted - Cardiology consulted - Toprol XL/ ranexa #DM2 - A1C 9.2, persistently hyperglycemic; 300s over last 24 hours - Endocrine consulted, recs appreciated - ISS - restarted home glipizide 10 + 5 - c/w home levemir 15u AM - nutrition consulted - dietary counseling, weight loss #CAD - c/w ASA - cards following - f/u as outpt - c/w lipitor #HypoK - 4.2 this AM - trend PPX HSQ FEN PO hydration daily lytes diabetic diet Plan discussed with Dr. Mary Ellen Eddy, PGY1 Visit type - Emergency Visit Emergency Visit: Yes ED Registration Date: 01/12/18 Care time: The patient presented to the Emergency Department on the above date and was hospitalized for further evaluation of their emergent condition. - New Patient This patient is new to me today: No - Critical Care Critical Care patient: No - Discharge Referral Referred to [facility] Med P.C.: No
[2018-01-16] MEDS: glipiZIDE 5 MG TABLET (FP) PO SCH ×2 (06:15→16:56)
[2018-01-16] MEDS: HEPARIN NA (PORCINE) 5,000 UNITS/ML 1ML VIAL SQ SCH ×3 (06:15→21:56)
[2018-01-16] MEDS: INSULIN SLIDING SCALE (NOVOLOG) 1 VIAL SQ SCH ×3 (06:17→16:56)
[2018-01-16 06:47] LABS: BASO % 0.2 % (0-2.0); HEMATOCRIT 37.5 % (32.4-45.2); HEMOGLOBIN 11.8 GM/dL (10.7-15.3); MCH 24.7 pg (25.7-33.7); MCHC 31.4 g/dl (32.0-36.0); MEAN CELL VOLUME 78.7 fl (80-96); MEAN PLT VOLUME 8.3 fl (7.5-11.1); MONO % 2.2 % (3.8-10.2); NEUT % 84.6 % (42.8-82.8); PLATELET COUNT 214 K/MM3 (134-434); RBC 4.77 M/mm3 (3.60-5.2); RDW 15.3 % (11.6-15.6); WHITE BLOOD COUNT 10.1 K/mm3 (4.0-10.0)
[2018-01-16] MEDS ORDERED: INSULIN (LEVEMIR) 100 UNITS/ML UNITS SQ ONE (06:48)
[2018-01-16] MEDS ORDERED: INSULIN (NOVOLOG) ASPART 100 UNITS/ML 10ML VIAL ONE ×2 (06:48→16:41)
[2018-01-16] MEDS: INSULIN (LEVEMIR) 100 UNITS/ML UNITS SQ SCH (07:08)
[2018-01-16 07:21] LABS: ALBUMIN 3.1 g/dl (3.4-5.0); ANION GAP 9 (8-16); BLOOD UREA NITROGEN 24 mg/dL (7-18); CALCIUM 8.7 mg/dL (8.5-10.1); CHLORIDE 97 mmol/L (98-107); CO2 32 mmol/L (21-32); CREATININE 0.7 mg/dL (0.55-1.02); PHOSPHOROUS 3.5 mg/dL (2.5-4.9); POTASSIUM 4.2 mmol/L (3.5-5.1); SGOT/AST 8 U/L (15-37); SGPT/ALT 26 U/L (12-78); SODIUM 138 mmol/L (136-145)
[2018-01-16 07:23] LABS: ALK PHOS 82 U/L (45-117); BILIRUBIN,TOTAL 0.4 mg/dL (0.2-1.0); TOT PROT 6.7 g/dl (6.4-8.2)
[2018-01-16] MEDS: ALBUTEROL SO4 2.5/IPRATROPIUM 0.5 INH SOL 3 ML VIAL.NEB. NEB SCH ×4 (08:10→20:00)
[2018-01-16] MEDS ORDERED: PT OWN MED DRAWER 7, Y5N ONE ×2 (08:46→21:35)
[2018-01-16 08:47] LABS: GLUCOSE,RANDOM 364 mg/dL (74-106)
[2018-01-16] MEDS: FUROSEMIDE 40 MG/4 ML INJECTABLE VIAL IVPUSH SCH (10:20)
[2018-01-16] MEDS: metoPROLOL SUCCINATE 25 MG TAB.SR.24H (FP) PO SCH (10:21)
[2018-01-16] MEDS: guaiFENesin/D-M SUGAR-FREE/ACLHOL-FREE 118 ML BOTTLE PO PRN ×2 (10:21→22:02)
[2018-01-16] MEDS: ASPIRIN 81 MG CHEWABLE TABLETS PO SCH (10:21)
[2018-01-16] MEDS: RANOLAZINE E.R. 500 MG TABLET (FP) PO SCH ×2 (10:21→21:55)
--- NOTE | 2018-01-16 10:49 | PN ---
Progress Note, Physician History of Present Illness: 72yo female with h/o HTN, DM, hyperlipidemia, CAD s/p stent x1, asthma, morbid obesity admitted with worsening shortness of breath x 4-5 days associated with chest discomfort associated with coughing and wheezing. +cough mostly nonproductive, but denies angina. No fevers, chills or sweats. No sick contacts. Asthma normally well controlled. Takes Symbicort as needed, does not take it every day. She is a never smoker. Has never been hospitalized for asthma. CTA chest was done in the ER which did not show any evidence of PE, feels improved with nebulizer treatment. - Current Medication List Current Medications: Active Medications Albuterol Sulfate (Ventolin 0.083% Nebulizer Soln -) 1 amp NEB Q4H PRN PRN Reason: ASTHMA Last Admin: 01/15/18 12:00 Dose: 1 amp Albuterol/Ipratropium (Duoneb -) 1 amp NEB RQID [facility] Last Admin: 01/16/18 08:10 Dose: 1 amp Aspirin (Asa -) 81 mg PO DAILY [facility] Last Admin: 01/16/18 10:21 Dose: 81 mg Atorvastatin Calcium (Lipitor -) 40 mg PO HS [facility] Last Admin: 01/15/18 21:20 Dose: 40 mg Benzocaine/Menthol (Cepacol Lozenge -) 1 each MM PRN PRN PRN Reason: SORE THROAT Docusate Sodium (Colace -) 100 mg PO TID [facility] Furosemide (Lasix Injection -) 40 mg IVPUSH DAILY [facility] Last Admin: 01/16/18 10:20 Dose: 40 mg Glipizide (Glucotrol -) 10 mg PO DAILY@0700 [facility] Last Admin: 01/16/18 06:15 Dose: 10 mg Glipizide (Glucotrol -) 5 mg PO DAILY@1630 [facility] Last Admin: 01/15/18 17:15 Dose: 5 mg Guaifenesin (Diabetic Tussin Dm -) 5 ml PO Q4H PRN PRN Reason: COUGH Last Admin: 01/16/18 10:21 Dose: 5 ml Heparin Sodium (Porcine) (Heparin -) 5,000 unit SQ TID [facility] Last Admin: 01/16/18 06:15 Dose: 5,000 unit Insulin Aspart (Novolog) 1 units SQ [facility] PRN Reason: Protocol Last Admin: 01/15/18 21:30 Dose: Not Given Insulin Aspart (Novolog Vial Sliding Scale -) 1 vial SQ TIDAC [facility] PRN Reason: Protocol Last Admin: 01/16/18 06:17 Dose: 18 unit Insulin Detemir (Levemir Vial) 15 units SQ ACBK [facility] Last Admin: 01/16/18 07:08 Dose: 15 unit Methylprednisolone Sodium Succinate (Solu-Medrol -) 40 mg IVPUSH BID [facility] Last Admin: 01/16/18 10:20 Dose: 40 mg Metoprolol Succinate (Toprol Xl -) 25 mg PO DAILY [facility] Last Admin: 01/16/18 10:21 Dose: 25 mg Montelukast Sodium (Singulair -) 10 mg PO [facility] Last Admin: 01/15/18 21:21 Dose: 10 mg Ranolazine (Ranexa -) 500 mg PO BID [facility] Last Admin: 01/16/18 10:21 Dose: 500 mg Senna (Senna -) 2 tab PO PRN PRN Reason: CONSTIPATION - Objective Vital Signs: Vital Signs Temperature 97.2 F L 01/16/18 10:00 Pulse Rate 74 01/16/18 10:00 Respiratory Rate 19 01/16/18 10:00 Blood Pressure 125/54 01/16/18 10:00 O2 Sat by Pulse Oximetry (%) 94 L 01/15/18 21:00 Eyes: Yes: WNL, Conjunctiva Clear, EOM Intact HENT: Yes: WNL, Atraumatic, Normocephalic Neck: Yes: WNL, Supple, Trachea Midline Cardiovascular: Yes: WNL, Regular Rate and Rhythm Respiratory: Yes: WNL, Regular, CTA Bilaterally Gastrointestinal: Yes: WNL, Normal Bowel Sounds Genitourinary: Yes: WNL Musculoskeletal: Yes: WNL Extremities: Yes: WNL Edema: No Integumentary: Yes: WNL Neurological: Yes: WNL, Alert, Oriented ...Motor Strength: WNL Psychiatric: Yes: WNL Labs: CBC, BMP 01/16/18 05:35 01/16/18 05:35 Assessment/Plan - Problems (1) Acute asthma exacerbation Assessment/Plan: Continue bronchodilators and steroids (presently IV) per echocardiography technologist. The importance of weight loss and increase in exercise was discussed. Recommend sleep studies to r/o sleep apnea. Code(s): J45.901 - UNSPECIFIED ASTHMA WITH (ACUTE) EXACERBATION Qualifiers: Asthma severity: moderate (2) Atypical chest pain Code(s): R07.89 - OTHER CHEST PAIN (3) Diabetes Code(s): E11.9 - TYPE 2 DIABETES MELLITUS WITHOUT COMPLICATIONS Qualifiers: Diabetes mellitus type: type 2 (4) Dizziness Code(s): R42 - DIZZINESS AND GIDDINESS (5) HTN (hypertension) Code(s): I10 - ESSENTIAL (PRIMARY) HYPERTENSION Qualifiers: Hypertension type: essential hypertension Qualified Code(s): I10 - Essential (primary) hypertension (6) Hyperlipidemia Code(s): E78.5 - HYPERLIPIDEMIA, UNSPECIFIED Qualifiers: Hyperlipidemia type: pure hypercholesterolemia Qualified Code(s): E78.00 - Pure hypercholesterolemia, unspecified; E78.0 - Pure hypercholesterolemia (7) Obese Code(s): E66.9 - OBESITY, UNSPECIFIED (8) Syncope, near Code(s): R55 - SYNCOPE AND COLLAPSE (9) Sleep apnea Assessment/Plan: sleep studies to r/o sleep apnea. Code(s): G47.30 - SLEEP APNEA, UNSPECIFIED
--- NOTE | 2018-01-16 11:04 | MSN ---
Progress Note (short form) - Note Progress Note: CHIEF COMPLAINT: shortness of breath HISTORY OF PRESENT ILLNESS: Yesterday, patient walked with physical therapy and was able to ambulate 100 feet but desaturated to 87% on room air after exercise. Patient's blood sugars have remained elevated in the mid 300s. Patient was seen and examined at the bedside. Patient noted that her breathing was better but continued to endorse dyspnea with exertion. Patient stated that at rest she was comfortable on room air. Patient stated that she her appetite was good but she had constipation and had not had a bowel movement since 2 days ago. Patient states she continues have abdominal pain with coughing. Patient denied chest pain, diaphoresis, fever, chills, headache, dizziness, lightheadedness, abd pain at rest, n/v/d, weakness. Recent Travel: recently returned from [facility] PAST MEDICAL HISTORY: Asthma, CAD, HTN, HLD, NIDDM PAST SURGICAL HISTORY: denies significant history Social History: Smoking: denies Alcohol: denies Drugs: denies REVIEW OF SYSTEMS CONSTITUTIONAL: Absent: fever, chills, diaphoresis, generalized weakness, malaise, loss of appetite, weight change HEENT: throat congestion Absent: rhinorrhea, nasal congestion, throat pain, throat swelling, difficulty swallowing, mouth swelling, ear pain, eye pain, visual changes CARDIOVASCULAR: Absent: chest pain, syncope, palpitations, irregular heart rate, lightheadedness , peripheral edema RESPIRATORY: shortness of breath, dry cough, dyspnea with exertion Absent: wheezing, orthopnea, stridor, hemoptysis GASTROINTESTINAL: abdominal pain with cough, constipation Absent: abdominal distension, nausea, vomiting, diarrhea, melena, hematochezia GENITOURINARY: Absent: dysuria, frequency, urgency, hesitancy, hematuria, flank pain, genital pain MUSCULOSKELETAL: Absent: myalgia, arthralgia, joint swelling, back pain, neck pain SKIN: Absent: rash, itching, pallor HEMATOLOGIC/IMMUNOLOGIC: Absent: easy bleeding, easy bruising, lymphadenopathy, frequent infections ENDOCRINE: Absent: unexplained weight gain, unexplained weight loss, heat intolerance, cold intolerance NEUROLOGIC: Absent: headache, focal weakness or paresthesias, dizziness, unsteady gait, seizure, mental status changes, bladder or bowel incontinence PSYCHIATRIC: Absent: anxiety, depression, suicidal or homicidal ideation, hallucinations. PHYSICAL EXAMINATION GENERAL: Awake, alert, and fully oriented, in no acute distress. HEAD: Normal with no signs of trauma. EARS, NOSE, THROAT: Moist mucous membranes. NECK: Normal range of motion, supple without lymphadenopathy, JVD, or masses. LUNGS: Breath sounds equal. Mild crackles on left middle and lower lobes, no wheezes no accessory muscle use. HEART: Regular rate and rhythm, normal S1 and S2 without murmur, rub or gallop. ABDOMEN: Soft, nontender, not distended, normoactive bowel sounds, no guarding, no rebound, no masses. No hepatomegaly or splenomegaly. MUSCULOSKELETAL: Normal range of motion at all joints. No bony deformities or tenderness. No CVA tenderness. UPPER EXTREMITIES: 2+ pulses, warm, well-perfused. No cyanosis. No clubbing. Cap refill <2 seconds. No peripheral edema. LOWER EXTREMITIES: 2+ pulses, warm, well-perfused. No calf tenderness. Trace peripheral edema. Varicosities noted. NEUROLOGICAL: Cranial nerves II-XII intact. Normal speech. Normal gait. PSYCHIATRIC: Cooperative. Good eye contact. Appropriate mood and affect. SKIN: Warm, dry, normal turgor, no rashes or lesions noted. Allergies Allergy/AdvReac Type Severity Reaction Status Date / Time No Known Allergies Allergy Verified 01/12/18 14:54 Current Medications Generic Name Dose Route Start Last Admin Trade Name Freq PRN Reason Stop Dose Admin Albuterol Sulfate 1 amp 01/12/18 22:18 01/15/18 12:00 Ventolin 0.083% Nebulizer Soln - NEB 1 amp Q4H PRN Administration ASTHMA Albuterol/Ipratropium 1 amp 01/12/18 22:30 01/16/18 08:10 Duoneb - NEB 1 amp RQID [facility] Administration Aspirin 81 mg 01/13/18 10:00 01/16/18 10:21 Asa - PO 81 mg DAILY [facility] Administration Atorvastatin Calcium 40 mg 01/13/18 22:00 01/15/18 21:20 Lipitor - PO 40 mg HS [facility] Administration Benzocaine/Menthol 1 each 01/14/18 11:05 Cepacol Lozenge - MM PRN PRN SORE THROAT Docusate Sodium 100 mg 01/16/18 14:00 Colace - PO TID [facility] Furosemide 40 mg 01/12/18 22:21 01/16/18 10:20 Lasix Injection - IVPUSH 40 mg DAILY [facility] Administration Glipizide 10 mg 01/15/18 07:00 01/16/18 06:15 Glucotrol - PO 10 mg DAILY@0700 [facility] Administration Glipizide 5 mg 01/14/18 16:30 01/15/18 17:15 Glucotrol - PO 5 mg DAILY@1630 [facility] Administration Guaifenesin 5 ml 01/13/18 22:39 01/16/18 10:21 Diabetic Tussin Dm - PO 5 ml Q4H PRN Administration COUGH Heparin Sodium (Porcine) 5,000 unit 01/13/18 06:00 01/16/18 06:15 Heparin - SQ 5,000 unit TID [facility] Administration Insulin Aspart 1 units 01/14/18 22:00 01/15/18 21:30 Novolog SQ Not Given [facility] Protocol Insulin Aspart 1 vial 01/15/18 11:59 01/16/18 06:17 Novolog Vial Sliding Scale - SQ 18 unit TIDAC [facility] Administration Protocol Insulin Detemir 15 units 01/14/18 07:00 01/16/18 07:08 Levemir Vial SQ 15 unit AC[facility] Administration Methylprednisolone Sodium Succinate 40 mg 01/16/18 10:00 01/16/18 10:20 Solu-Medrol - IVPUSH 40 mg BID [facility] Administration Metoprolol Succinate 25 mg 01/13/18 10:00 01/16/18 10:21 Toprol Xl - PO 25 mg DAILY [facility] Administration Montelukast Sodium 10 mg 01/13/18 22:00 01/15/18 21:21 Singulair - PO 10 mg HS [facility] Administration Ranolazine 500 mg 01/13/18 10:00 01/16/18 10:21 Ranexa - PO 500 mg BID [facility] Administration Senna 2 tab 01/16/18 22:00 Senna - PO HS PRN CONSTIPATION Abnormal Lab Results 01/16/18 01/16/18 05:35 05:35 WBC 10.1 H MCV 78.7 L MCH 24.7 L MCHC 31.4 L Neutrophils % 84.6 H Monocytes % 2.2 L Chloride 97 L BUN 24 H Random Glucose 364 H* AST 8 L Albumin 3.1 L IMAGING CHEST X-RAY: No acute evidence of infiltrate or pleural fluid - 01/15 - shows no active pulmonary disease CHEST CT: Scattered areas of atelectic changes, no acute evidence of pulmonary emboli. ECHOCARDIOGRAM: LVEF 65-70% and normal size. essentially unchanged since previous echo in 2016 ASSESSMENT/PLAN: Patient is a 72 year old female with a PMHx of asthma and NIDDM who presented with increased shortness of breath and wheezing. Acute Asthma Exacerbation - CT scan negative for PE - Solumedrol 40mg IV bid - Duoneb qid and q4h prn - Singular 10mg qhs - O2 as needed - incentive spirometry encouraged - flu swab negative - able to ambulate 100ft with PT, continue to work with PT - cardiology advised for sleep studies as outpatient Acute Heart Failure Decompensation - IV Lasix 40mg - Echo is within normal limits - continue aspirin, Ranexa, Toprol Diabetes Mellitus - HA1C 9.6 - endocrine consulted, recs appreciated - Levemir 15mg qhs - ISS protocol updated by endocrinology - BGM - glipizide 10mg in the morning, 5mg nightly - counseled on weight loss Cough - cepacol lozenge - Diabetic Tussin DM HTN - toprol XL 25mg daily HLD - Lipitor 40mg daily Constipation - Colace - senna F/E/N - hold IV fluids - K 3.2, repleted, currently 4.2 - replete as necessary - low sodium diet DVT PPx - heparin 5000 subq tid Disposition - admitted to telemetry Problem List - Problems (1) Acute asthma exacerbation Code(s): J45.901 - UNSPECIFIED ASTHMA WITH (ACUTE) EXACERBATION Qualifiers: Asthma severity: moderate (2) Diabetes Code(s): E11.9 - TYPE 2 DIABETES MELLITUS WITHOUT COMPLICATIONS Qualifiers: Diabetes mellitus type: type 2 (3) HTN (hypertension) Code(s): I10 - ESSENTIAL (PRIMARY) HYPERTENSION Qualifiers: Hypertension type: essential hypertension Qualified Code(s): I10 - Essential (primary) hypertension (4) Hyperlipidemia Code(s): E78.5 - HYPERLIPIDEMIA, UNSPECIFIED Qualifiers: Hyperlipidemia type: pure hypercholesterolemia Qualified Code(s): E78.00 - Pure hypercholesterolemia, unspecified; E78.0 - Pure hypercholesterolemia
[2018-01-16 11:43] LABS: MAGNESIUM 2.3 mg/dL (1.8-2.4)
--- NOTE | 2018-01-16 11:48 | PN ---
Teaching Attending Note Name of Resident: Gage Eddy ATTENDING PHYSICIAN STATEMENT I saw and evaluated the patient. I reviewed the resident's note and discussed the case with the resident. I agree with the resident's findings and plan as documented. SUBJECTIVE: No complaints. OBJECTIVE: Vital Signs Period Temp Pulse Resp BP Sys/Fong Pulse Ox Last 24 Hr 97.2 F-97.9 F 62-82 16-20 120-154/52-78 94 HEART: S1S2, RRR LUNGS: Clear with diminished BS bilaterally ABDOMEN: Obese, soft, non-tender, non-distended, normal BS EXTREMITIES: No edema Laboratory Results - last 24 hr 01/15/18 01/15/18 01/15/18 16:48 20:51 23:37 WBC RBC Hgb Hct MCV MCH MCHC RDW Plt Count MPV Neutrophils % Lymphocytes % Monocytes % Eosinophils % Basophils % Sodium Potassium Chloride Carbon Dioxide Anion Gap BUN Creatinine Creat Clearance w eGFR POC Glucometer 410 465 339 Random Glucose Calcium Phosphorus Magnesium Total Bilirubin AST ALT Alkaline Phosphatase Total Protein Albumin 01/16/18 01/16/18 01/16/18 05:30 05:35 05:35 WBC 10.1 H RBC 4.77 Hgb 11.8 Hct 37.5 MCV 78.7 L MCH 24.7 L MCHC 31.4 L RDW 15.3 Plt Count 214 MPV 8.3 Neutrophils % 84.6 H Lymphocytes % 13.0 Monocytes % 2.2 L Eosinophils % 0.0 Basophils % 0.2 Sodium 138 Potassium 4.2 Chloride 97 L Carbon Dioxide 32 Anion Gap 9 BUN 24 H Creatinine 0.7 Creat Clearance w eGFR > 60 POC Glucometer Random Glucose 364 H* Calcium 8.7 Phosphorus 3.5 Magnesium Cancelled 2.3 Total Bilirubin 0.4 AST 8 L ALT 26 Alkaline Phosphatase 82 Total Protein 6.7 Albumin 3.1 L 01/16/18 05:54 WBC RBC Hgb Hct MCV MCH MCHC RDW Plt Count MPV Neutrophils % Lymphocytes % Monocytes % Eosinophils % Basophils % Sodium Potassium Chloride Carbon Dioxide Anion Gap BUN Creatinine Creat Clearance w eGFR POC Glucometer 380 Random Glucose Calcium Phosphorus Magnesium Total Bilirubin AST ALT Alkaline Phosphatase Total Protein Albumin Current Medications Generic Name Dose Route Start Last Admin Trade Name Freq PRN Reason Stop Dose Admin Albuterol Sulfate 1 amp 01/12/18 22:18 01/15/18 12:00 Ventolin 0.083% Nebulizer Soln - NEB 1 amp Q4H PRN Administration ASTHMA Albuterol/Ipratropium 1 amp 01/12/18 22:30 01/16/18 08:10 Duoneb - NEB 1 amp RQID [facility] Administration Aspirin 81 mg 01/13/18 10:00 01/16/18 10:21 Asa - PO 81 mg DAILY [facility] Administration Atorvastatin Calcium 40 mg 01/13/18 22:00 01/15/18 21:20 Lipitor - PO 40 mg HS [facility] Administration Benzocaine/Menthol 1 each 01/14/18 11:05 Cepacol Lozenge - MM PRN PRN SORE THROAT Docusate Sodium 100 mg 01/16/18 14:00 Colace - PO TID [facility] Furosemide 40 mg 01/12/18 22:21 01/16/18 10:20 Lasix Injection - IVPUSH 40 mg DAILY [facility] Administration Glipizide 10 mg 01/15/18 07:00 01/16/18 06:15 Glucotrol - PO 10 mg DAILY@0700 [facility] Administration Glipizide 5 mg 01/14/18 16:30 01/15/18 17:15 Glucotrol - PO 5 mg DAILY@1630 [facility] Administration Guaifenesin 5 ml 01/13/18 22:39 01/16/18 10:21 Diabetic Tussin Dm - PO 5 ml Q4H PRN Administration COUGH Heparin Sodium (Porcine) 5,000 unit 01/13/18 06:00 01/16/18 06:15 Heparin - SQ 5,000 unit TID [facility] Administration Insulin Aspart 1 units 01/14/18 22:00 01/15/18 21:30 Novolog SQ Not Given HS [facility] Protocol Insulin Aspart 1 vial 01/15/18 11:59 01/16/18 11:25 Novolog Vial Sliding Scale - SQ 16 unit TIDAC [facility] Administration Protocol Insulin Detemir 15 units 01/14/18 07:00 01/16/18 07:08 Levemir Vial SQ 15 unit ACBK [facility] Administration Methylprednisolone Sodium Succinate 40 mg 01/16/18 10:00 01/16/18 10:20 Solu-Medrol - IVPUSH 40 mg BID [facility] Administration Metoprolol Succinate 25 mg 01/13/18 10:00 01/16/18 10:21 Toprol Xl - PO 25 mg DAILY [facility] Administration Montelukast Sodium 10 mg 01/13/18 22:00 01/15/18 21:21 Singulair - PO 10 mg HS [facility] Administration Ranolazine 500 mg 01/13/18 10:00 01/16/18 10:21 Ranexa - PO 500 mg BID [facility] Administration Senna 2 tab 01/16/18 22:00 Senna - PO HS PRN CONSTIPATION ASSESSMENT AND PLAN: This is a 73 year old woman with a history of asthma, CAD, HTN, hyperlipidemia, type 2 DM who presented to the ED with shortness of breath and wheezing. 1. Acute asthma exacerbation - SoluMedrol being tapered - Continue Singulair, DuoNeb, albuterol nebs as needed - Still requiring oxygen 2. Acute diastolic heart failure - Continue Lasix IV 3. CAD, history of stent - Continue aspirin, Toprol XL, Lipitor, Ranexa 4. HTN - Continue Toprol XL 5. Hyperlipidemia - Continue Lipitor 6. Type 2 diabetes mellitus, uncontro - Continue Levemir, Glucotrol, Novolog sliding scale - Taper steroids and monitor fingersticks 7. Morbid obesity with BMI 40.2 8. Disposition - Expect discharge tomorrow - may need home oxygen
--- NOTE | 2018-01-16 12:40 | PN ---
Progress Note, Physician History of Present Illness: PULMONARY ALERT,FEELING BETTER,LESS DYSPNEIC,LESS COUGH - Current Medication List Current Medications: Active Medications Albuterol Sulfate (Ventolin 0.083% Nebulizer Soln -) 1 amp NEB Q4H PRN PRN Reason: ASTHMA Last Admin: 01/15/18 12:00 Dose: 1 amp Albuterol/Ipratropium (Duoneb -) 1 amp NEB RQID [facility] Last Admin: 01/16/18 12:10 Dose: Not Given Aspirin (Asa -) 81 mg PO DAILY [facility] Last Admin: 01/16/18 10:21 Dose: 81 mg Atorvastatin Calcium (Lipitor -) 40 mg PO HS [facility] Last Admin: 01/15/18 21:20 Dose: 40 mg Benzocaine/Menthol (Cepacol Lozenge -) 1 each MM PRN PRN PRN Reason: SORE THROAT Docusate Sodium (Colace -) 100 mg PO TID [facility] Furosemide (Lasix Injection -) 40 mg IVPUSH DAILY [facility] Last Admin: 01/16/18 10:20 Dose: 40 mg Glipizide (Glucotrol -) 10 mg PO DAILY@0700 [facility] Last Admin: 01/16/18 06:15 Dose: 10 mg Glipizide (Glucotrol -) 5 mg PO DAILY@1630 [facility] Last Admin: 01/15/18 17:15 Dose: 5 mg Guaifenesin (Diabetic Tussin Dm -) 5 ml PO Q4H PRN PRN Reason: COUGH Last Admin: 01/16/18 10:21 Dose: 5 ml Heparin Sodium (Porcine) (Heparin -) 5,000 unit SQ TID [facility] Last Admin: 01/16/18 06:15 Dose: 5,000 unit Insulin Aspart (Novolog) 1 units SQ [facility] PRN Reason: Protocol Last Admin: 01/15/18 21:30 Dose: Not Given Insulin Aspart (Novolog Vial Sliding Scale -) 1 vial SQ TIDAC [facility] PRN Reason: Protocol Last Admin: 01/16/18 11:25 Dose: 16 unit Insulin Detemir (Levemir Vial) 15 units SQ ACBK [facility] Last Admin: 01/16/18 07:08 Dose: 15 unit Methylprednisolone Sodium Succinate (Solu-Medrol -) 40 mg IVPUSH BID [facility] Last Admin: 01/16/18 10:20 Dose: 40 mg Metoprolol Succinate (Toprol Xl -) 25 mg PO DAILY [facility] Last Admin: 01/16/18 10:21 Dose: 25 mg Montelukast Sodium (Singulair -) 10 mg PO HS [facility] Last Admin: 01/15/18 21:21 Dose: 10 mg Ranolazine (Ranexa -) 500 mg PO BID [facility] Last Admin: 01/16/18 10:21 Dose: 500 mg Senna (Senna -) 2 tab PO HS PRN PRN Reason: CONSTIPATION - Objective Vital Signs: Vital Signs Temperature 97.2 F L 01/16/18 10:00 Pulse Rate 74 01/16/18 10:00 Respiratory Rate 19 01/16/18 10:00 Blood Pressure 125/54 01/16/18 10:00 O2 Sat by Pulse Oximetry (%) 94 L 01/15/18 21:00 Constitutional: Yes: Well Nourished, Calm Eyes: Yes: WNL HENT: Yes: WNL Neck: Yes: WNL Cardiovascular: Yes: Regular Rate and Rhythm, S1, S2 Respiratory: Yes: Wheezes (FEW WHEEZES) Gastrointestinal: Yes: Normal Bowel Sounds, Soft Extremities: Yes: WNL Edema: No Labs: CBC, BMP 01/16/18 05:35 01/16/18 05:35 Assessment/Plan Problem List - Problems (1) Acute asthma exacerbation Code(s): J45.901 - UNSPECIFIED ASTHMA WITH (ACUTE) EXACERBATION IMPROVING (2) Diabetes Code(s): E11.9 - TYPE 2 DIABETES MELLITUS WITHOUT COMPLICATIONS (3) HTN (hypertension) Code(s): I10 - ESSENTIAL (PRIMARY) HYPERTENSION (4) Hyperlipidemia Code(s): E78.5 - HYPERLIPIDEMIA, UNSPECIFIED Assessment/Plan Acute Asthma Exacerbation improving CAD HTN DM Hyperlipidemia - medrol taper - inhaled bronchodilators standing and PRN - singulair - monitor peak flow - glucose control while on systemic steroids - O2 as needed - DVT prophylaxis - monitor peak flow - incentive spirometer - pfts outpatient DR CASANOVA
[2018-01-16] MEDS: DOCUSATE SODIUM 100 MG CAPSULE (FP) PO SCH ×2 (14:51→21:54)
--- NOTE | 2018-01-16 15:05 | PN ---
Progress Note (short form) - Note Progress Note: Feels better Less SOB BGM 300s Vital Signs Period Temp Pulse Resp BP Sys/Fong Pulse Ox Last 24 Hr 97.2 F-97.8 F 62-74 18-20 120-154/52-78 94-94 PE: AOx3 Neck: supple HEENT: EOMO Lungs: CTA CVS: S1S2 Abd: Benign Ext: No edema Neuro: No focal deficit CMP Sodium 138 mmol/L (136-145) 01/16/18 05:35 Potassium 4.2 mmol/L (3.5-5.1) 01/16/18 05:35 Chloride 97 mmol/L (98-107) L 01/16/18 05:35 Carbon Dioxide 32 mmol/L (21-32) 01/16/18 05:35 Anion Gap 9 (8-16) 01/16/18 05:35 BUN 24 mg/dL (7-18) H 01/16/18 05:35 Creatinine 0.7 mg/dL (0.55-1.02) 01/16/18 05:35 Creat Clearance w eGFR > 60 (>60) 01/16/18 05:35 POC Glucometer 311 UNITS (80-120) 01/16/18 11:24 Random Glucose 364 mg/dL (74-106) H* 01/16/18 05:35 Hemoglobin A1c % 9.6 % (4.8-6.0) H 01/13/18 07:04 Calcium 8.7 mg/dL (8.5-10.1) 01/16/18 05:35 Phosphorus 3.5 mg/dL (2.5-4.9) 01/16/18 05:35 Magnesium 2.3 mg/dL (1.8-2.4) 01/16/18 05:35 Total Bilirubin 0.4 mg/dL (0.2-1.0) 01/16/18 05:35 AST 8 U/L (15-37) L 01/16/18 05:35 ALT 26 U/L (12-78) 01/16/18 05:35 Alkaline Phosphatase 82 U/L (45-117) 01/16/18 05:35 Creatine Kinase 55 IU/L (26-192) 01/12/18 16:57 Troponin I 0.04 ng/ml (0.00-0.05) 01/12/18 16:57 B-Natriuretic Peptide 1400.12 pg/ml (5-125) H 01/12/18 16:57 Total Protein 6.7 g/dl (6.4-8.2) 01/16/18 05:35 Albumin 3.1 g/dl (3.4-5.0) L 01/16/18 05:35 Triglycerides 91 mg/dL (35-160) 01/13/18 07:04 Cholesterol 149 mg/dL (50-200) 01/13/18 07:04 Total LDL Cholesterol 92 mg/dL (5-100) 01/13/18 07:04 HDL Cholesterol 48 mg/dL (40-60) 01/13/18 07:04 Current Medications Generic Name Dose Route Start Last Admin Trade Name Freq PRN Reason Stop Dose Admin Albuterol Sulfate 1 amp 01/12/18 22:18 01/15/18 12:00 Ventolin 0.083% Nebulizer Soln - NEB 1 amp Q4H PRN Administration ASTHMA Albuterol/Ipratropium 1 amp 01/12/18 22:30 01/16/18 12:10 Duoneb - NEB Not Given RQID STEVEN Aspirin 81 mg 01/13/18 10:00 01/16/18 10:21 Asa - PO 81 mg DAILY STEVEN Administration Atorvastatin Calcium 40 mg 01/13/18 22:00 01/15/18 21:20 Lipitor - PO 40 mg HS STEVEN Administration Benzocaine/Menthol 1 each 01/14/18 11:05 Cepacol Lozenge - MM PRN PRN SORE THROAT Docusate Sodium 100 mg 01/16/18 14:00 01/16/18 14:51 Colace - PO 100 mg TID STEVEN Administration Furosemide 40 mg 01/12/18 22:21 01/16/18 10:20 Lasix Injection - IVPUSH 40 mg DAILY STEVEN Administration Glipizide 10 mg 01/15/18 07:00 01/16/18 06:15 Glucotrol - PO 10 mg DAILY@0700 STEVEN Administration Glipizide 5 mg 01/14/18 16:30 01/15/18 17:15 Glucotrol - PO 5 mg DAILY@1630 STEVEN Administration Guaifenesin 5 ml 01/13/18 22:39 01/16/18 10:21 Diabetic Tussin Dm - PO 5 ml Q4H PRN Administration COUGH Heparin Sodium (Porcine) 5,000 unit 01/13/18 06:00 01/16/18 14:51 Heparin - SQ 5,000 unit TID STEVEN Administration Insulin Aspart 1 units 01/14/18 22:00 01/15/18 21:30 Novolog SQ Not Given HS STEVEN Protocol Insulin Aspart 1 vial 01/15/18 11:59 01/16/18 11:25 Novolog Vial Sliding Scale - SQ 16 unit TIDAC STEVEN Administration Protocol Insulin Detemir 15 units 01/14/18 07:00 01/16/18 07:08 Levemir Vial SQ 15 unit ACBK STEVEN Administration Methylprednisolone Sodium Succinate 40 mg 01/16/18 10:00 01/16/18 10:20 Solu-Medrol - IVPUSH 40 mg BID STEVEN Administration Metoprolol Succinate 25 mg 01/13/18 10:00 01/16/18 10:21 Toprol Xl - PO 25 mg DAILY STEVEN Administration Montelukast Sodium 10 mg 01/13/18 22:00 01/15/18 21:21 Singulair - PO 10 mg HS STEVEN Administration Ranolazine 500 mg 01/13/18 10:00 01/16/18 10:21 Ranexa - PO 500 mg BID STEVEN Administration Senna 2 tab 01/16/18 22:00 Senna - PO HS PRN CONSTIPATION AP: Acute Asthma Exacerbation T2DM uncontrolled CAD HTN Hyperlipidemia BGM QACHS Continue Novolog Coverage. No increase in dose as Medrol decreased to 40 BID Will need to adjust Novolog coverage with change in Solumedrol dose, discussed with housestaff. Continue Levemir 15 daily Glipizide 10 + 5 Diet exercise discussed May need to take Insulin at home too at least until she is on steroids if she is discharged on it. Nutrition consult IV medrol bronchodilators standing and PRN O2 as needed Dr Dacosta covering until February 05
[2018-01-16] MEDS: ATORVASTATIN CA 40 MG TABLET (FP) PO SCH (21:55)
[2018-01-16] MEDS: MONTELUKAST NA 10 MG TABLET PO SCH (21:55)
[2018-01-16] MEDS: Insulin (LOG) Aspart 100 UNITS/ML VIAL SQ SCH (21:56)
[2018-01-16] MEDS ORDERED: SENNOSIDES 8.6MG TABLET (FP) PO PRN (22:00)
[2018-01-17] MEDS: HEPARIN NA (PORCINE) 5,000 UNITS/ML 1ML VIAL SQ SCH ×2 (06:24→14:00)
[2018-01-17] MEDS: glipiZIDE 5 MG TABLET (FP) PO SCH ×2 (06:24→16:18)
[2018-01-17] MEDS: DOCUSATE SODIUM 100 MG CAPSULE (FP) PO SCH ×2 (06:24→14:00)
[2018-01-17] MEDS: INSULIN (LEVEMIR) 100 UNITS/ML UNITS SQ SCH (06:24)
[2018-01-17] MEDS: INSULIN SLIDING SCALE (NOVOLOG) 1 VIAL SQ SCH ×3 (06:26→17:28)
--- NOTE | 2018-01-17 06:29 | PN ---
Physical Exam: SUBJECTIVE: Patient seen and examined -no major overnight events; VSS, afebrile; still with productive cough, however improving; no other complaints; denies IRVING, f/c//n/v/d, cp, sob, ab pain, back pain; tolerating PO feeds. d/c home today OBJECTIVE: Vital Signs Intake & Output 01/14/18 01/15/18 01/16/18 01/17/18 23:59 23:59 23:59 23:59 Intake Total 1050 1350 1670 120 Output Total 1550 Balance 1050 -200 1670 120 Weight 87.6 kg 87.543 kg 87.203 kg 86.806 kg Period Temp Pulse Resp BP Sys/Fong Pulse Ox Last 24 Hr 97.2 F-97.9 F 59-76 18-19 120-151/54-77 94-98 GENERAL: Middle aged woman, NAD, A&Ox3 HEAD: NCAT EYES: PERRL, extraocular movements intact, sclera anicteric, conjunctiva clear. No ptosis. ENT: Ears normal, nares patent, oropharynx clear without exudates, MMM NECK: Trachea midline, full range of motion, supple. LUNGS: Mildly decreased air entry in upper airways. No wheezing . No crackles, rhonchi or accessory muscle use. HEART: Regular rate and rhythm, S1, S2 without murmur, rub or gallop. ABDOMEN: Globular. Soft, nontender, nondistended, normoactive bowel sounds, no guarding, no rebound, no hepatosplenomegaly, no masses. EXTREMITIES: 2+ pulses, warm, well-perfused, trace pedal edema BL. NEUROLOGICAL: Cranial nerves II through XII grossly intact. Normal speech, gait not observed. PSYCH: Normal mood, normal affect SKIN: Warm, dry, normal turgor, no rashes or lesions noted Laboratory Results - last 24 hr CBC, BMP 01/17/18 05:35 01/17/18 05:35 01/15/18 01/15/18 01/16/18 16:48 20:51 05:30 WBC RBC Hgb Hct MCV MCH MCHC RDW Plt Count MPV Neutrophils % Lymphocytes % Monocytes % Eosinophils % Basophils % Sodium Potassium Chloride Carbon Dioxide Anion Gap BUN Creatinine Creat Clearance w eGFR POC Glucometer 410 465 Random Glucose Calcium Phosphorus Magnesium Cancelled Total Bilirubin AST ALT Alkaline Phosphatase Total Protein Albumin 05/02/18 05/02/18 05/02/18 05:35 05:35 11:24 WBC 10.1 H RBC 4.77 Hgb 11.8 Hct 37.5 MCV 78.7 L MCH 24.7 L MCHC 31.4 L RDW 15.3 Plt Count 214 MPV 8.3 Neutrophils % 84.6 H Lymphocytes % 13.0 Monocytes % 2.2 L Eosinophils % 0.0 Basophils % 0.2 Sodium 138 Potassium 4.2 Chloride 97 L Carbon Dioxide 32 Anion Gap 9 BUN 24 H Creatinine 0.7 Creat Clearance w eGFR > 60 POC Glucometer 311 Random Glucose 364 H* Calcium 8.7 Phosphorus 3.5 Magnesium 2.3 Total Bilirubin 0.4 AST 8 L ALT 26 Alkaline Phosphatase 82 Total Protein 6.7 Albumin 3.1 L 01/16/18 01/16/18 16:55 20:58 WBC RBC Hgb Hct MCV MCH MCHC RDW Plt Count MPV Neutrophils % Lymphocytes % Monocytes % Eosinophils % Basophils % Sodium Potassium Chloride Carbon Dioxide Anion Gap BUN Creatinine Creat Clearance w eGFR POC Glucometer 363 326 Random Glucose Calcium Phosphorus Magnesium Total Bilirubin AST ALT Alkaline Phosphatase Total Protein Albumin Active Medications Generic Name Dose Route Start Last Admin Trade Name Freq PRN Reason Stop Dose Admin Albuterol Sulfate 1 amp 01/12/18 22:18 01/15/18 12:00 Ventolin 0.083% Nebulizer Soln - NEB 1 amp Q4H PRN Administration ASTHMA Albuterol/Ipratropium 1 amp 01/12/18 22:30 01/16/18 20:00 Duoneb - NEB 1 amp RQID STEVEN Administration Aspirin 81 mg 01/13/18 10:00 01/16/18 10:21 Asa - PO 81 mg DAILY STEVEN Administration Atorvastatin Calcium 40 mg 01/13/18 22:00 01/16/18 21:55 Lipitor - PO 40 mg HS STEVEN Administration Benzocaine/Menthol 1 each 01/14/18 11:05 Cepacol Lozenge - MM PRN PRN SORE THROAT Docusate Sodium 100 mg 01/16/18 14:00 01/16/18 21:54 Colace - PO 100 mg TID STEVEN Administration Furosemide 40 mg 01/12/18 22:21 01/16/18 10:20 Lasix Injection - IVPUSH 40 mg DAILY STEVEN Administration Glipizide 10 mg 01/15/18 07:00 01/16/18 06:15 Glucotrol - PO 10 mg DAILY@0700 STEVEN Administration Glipizide 5 mg 01/14/18 16:30 01/16/18 16:56 Glucotrol - PO 5 mg DAILY@1630 STEVEN Administration Guaifenesin 5 ml 01/13/18 22:39 01/16/18 22:02 Diabetic Tussin Dm - PO 5 ml Q4H PRN Administration COUGH Heparin Sodium (Porcine) 5,000 unit 01/13/18 06:00 01/16/18 21:56 Heparin - SQ 5,000 unit TID STEVEN Administration Insulin Aspart 1 units 01/14/18 22:00 01/16/18 21:56 Novolog SQ 1 units HS STEVEN Administration Protocol Insulin Aspart 1 vial 01/15/18 11:59 01/16/18 16:56 Novolog Vial Sliding Scale - SQ 18 unit TIDAC STEVEN Administration Protocol Insulin Detemir 15 units 01/14/18 07:00 01/16/18 07:08 Levemir Vial SQ 15 unit ACBK STEVEN Administration Methylprednisolone Sodium Succinate 40 mg 01/16/18 10:00 01/16/18 21:55 Solu-Medrol - IVPUSH 40 mg BID STEVEN Administration Metoprolol Succinate 25 mg 01/13/18 10:00 01/16/18 10:21 Toprol Xl - PO 25 mg DAILY STEVEN Administration Montelukast Sodium 10 mg 01/13/18 22:00 01/16/18 21:55 Singulair - PO 10 mg HS STEVEN Administration Ranolazine 500 mg 01/13/18 10:00 01/16/18 21:55 Ranexa - PO 500 mg BID STEVEN Administration Senna 2 tab 01/16/18 22:00 Senna - PO HS PRN CONSTIPATION Microbiology 01/14/18 13:00 Nasopharyngeal Swab Influenza Types A,B Antigen (FELIPA) - Final 01/14/18 13:00 Nasopharyngeal Swab - Final ECHO 01/14 - LV function normal, EF 65-70%, RV function normal, mild TR, RV pressure normal CXR 4.28 - Since 04/06/2017, 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 Correlation recommended. CTA 01/12 - IMPRESSION: Limited examination, as described above with very poor enhancement of the distal pulmonary artery branches, in particular in the lower lobes. Otherwise, there is no evidence of a pulmonary embolus in the main pulmonary artery and its proximal bifurcations, bilaterally. Mild cardiomegaly. Borderline right paratracheal lymph node which is nonspecific. Scattered areas of atelectatic changes in the lung without gross evidence of focal infiltrates. Partially included over distended gallbladder CXR 01/15 - No active pulmonary dz ASSESSMENT/PLAN: 72 y/o f w/ pmh of asthma and CAD who presented to ED over the weekend for worsening SOB, likely to be in acute asthma exacerbation. Will likely go tomorrow on short course of PO steroids. #Acute Asthma Exacerbation - CTA neg, no evidence of PNA on imaging; flu negative - Solumedrol 40 BID. PO steroids tomorrow - duonebs standing and prn - pulm consulted - O2 prn - robitussin DM - cepacol - singulair qhs - f/u peak flows - repeat pre and post tomorrow before discharge - consider sleep studies as outpt #Acute on chronic diastolic CHF - BNP 1400 on admission - Strict Is and Os - Lasix 40mg IV daily - Echo results noted - Cardiology consulted - Toprol XL/ ranexa #DM2 - A1C 9.2, persistently hyperglycemic; 300s over last 24 hours - Endocrine consulted, recs appreciated - ISS - restarted home glipizide 10 + 5 - c/w home levemir 15u AM - nutrition consulted - dietary counseling, weight loss #CAD - c/w ASA - cards following - f/u as outpt - c/w lipitor #HypoK - 4.2 this AM - trend PPX HSQ FEN PO hydration daily lytes diabetic diet Plan discussed with Dr. Mary Ellen Eddy, PGY1
[2018-01-17] MEDS ORDERED: PT OWN MED DRAWER 7, Y5N ONE (06:34)
[2018-01-17 06:35] LABS: HEMATOCRIT 40.7 % (32.4-45.2); HEMOGLOBIN 12.9 GM/dL (10.7-15.3); MCHC 31.6 g/dl (32.0-36.0); MEAN CELL VOLUME 79.1 fl (80-96); MEAN PLT VOLUME 8.6 fl (7.5-11.1); PLATELET COUNT 247 K/MM3 (134-434); RBC 5.15 M/mm3 (3.60-5.2); RDW 15.4 % (11.6-15.6); WHITE BLOOD COUNT 13.6 K/mm3 (4.0-10.0)
[2018-01-17] MEDS: guaiFENesin/D-M SUGAR-FREE/ACLHOL-FREE 118 ML BOTTLE PO PRN ×2 (06:36→14:00)
[2018-01-17 07:06] LABS: ALBUMIN 3.3 g/dl (3.4-5.0); ANION GAP 5 (8-16); BLOOD UREA NITROGEN 26 mg/dL (7-18); CALCIUM 8.7 mg/dL (8.5-10.1); CHLORIDE 96 mmol/L (98-107); CO2 35 mmol/L (21-32); MAGNESIUM 2.4 mg/dL (1.8-2.4); POTASSIUM 4.3 mmol/L (3.5-5.1); SODIUM 136 mmol/L (136-145)
[2018-01-17 07:12] LABS: ALK PHOS 91 U/L (45-117); BILIRUBIN,TOTAL 0.6 mg/dL (0.2-1.0); CREATININE 0.7 mg/dL (0.55-1.02); PHOSPHOROUS 4.7 mg/dL (2.5-4.9); SGOT/AST 7 U/L (15-37); SGPT/ALT 25 U/L (12-78); TOT PROT 7.2 g/dl (6.4-8.2)
[2018-01-17 07:49] LABS: GLUCOSE,RANDOM 339 mg/dL (74-106)
[2018-01-17] MEDS: ALBUTEROL SO4 2.5/IPRATROPIUM 0.5 INH SOL 3 ML VIAL.NEB. NEB SCH ×3 (08:00→15:05)
[2018-01-17] MEDS: methylPREDNISolone NA SUCC 40 MG/1 ML VIAL IVPUSH SCH (09:00)
[2018-01-17] MEDS: metoPROLOL SUCCINATE 25 MG TAB.SR.24H (FP) PO SCH (09:00)
[2018-01-17] MEDS: ASPIRIN 81 MG CHEWABLE TABLETS PO SCH (09:00)
[2018-01-17] MEDS: RANOLAZINE E.R. 500 MG TABLET (FP) PO SCH (09:00)
[2018-01-17] MEDS: FUROSEMIDE 40 MG/4 ML INJECTABLE VIAL IVPUSH SCH (09:00)
[2018-01-17 09:10] LABS: OVALOCYTE 1+; PLATELET ESTIMATE NORMAL; TEAR DROP CELLS 1+
--- NOTE | 2018-01-17 10:40 | PN ---
Progress Note (short form) - Note Progress Note: PULMONARY Breathing continues to improve. Less cough and wheezing. Last Vital Signs Temp Pulse Resp BP Pulse Ox 97.8 F 59 L 18 147/77 98 01/17/18 05:00 01/17/18 05:00 01/17/18 05:00 01/17/18 05:00 01/16/18 21:00 Gen: NAD at rest Heart: RRR Lung: decreased breath sounds at the bases, no wheezes Abd: soft, nontender Ext: no edema CBC, BMP 01/17/18 05:35 01/17/18 05:35 Active Medications Albuterol Sulfate (Ventolin 0.083% Nebulizer Soln -) 1 amp NEB Q4H PRN PRN Reason: ASTHMA Last Admin: 01/15/18 12:00 Dose: 1 amp Albuterol/Ipratropium (Duoneb -) 1 amp NEB RQID [facility] Last Admin: 01/17/18 08:00 Dose: 1 amp Aspirin (Asa -) 81 mg PO DAILY [facility] Last Admin: 01/17/18 09:00 Dose: 81 mg Atorvastatin Calcium (Lipitor -) 40 mg PO HS [facility] Last Admin: 01/16/18 21:55 Dose: 40 mg Benzocaine/Menthol (Cepacol Lozenge -) 1 each MM PRN PRN PRN Reason: SORE THROAT Docusate Sodium (Colace -) 100 mg PO TID [facility] Last Admin: 01/17/18 06:24 Dose: 100 mg Furosemide (Lasix Injection -) 40 mg IVPUSH DAILY [facility] Last Admin: 01/17/18 09:00 Dose: 40 mg Glipizide (Glucotrol -) 10 mg PO DAILY@0700 [facility] Last Admin: 01/17/18 06:24 Dose: 10 mg Glipizide (Glucotrol -) 5 mg PO DAILY@1630 [facility] Last Admin: 01/16/18 16:56 Dose: 5 mg Guaifenesin (Diabetic Tussin Dm -) 5 ml PO Q4H PRN PRN Reason: COUGH Last Admin: 01/17/18 06:36 Dose: 5 ml Heparin Sodium (Porcine) (Heparin -) 5,000 unit SQ TID [facility] Last Admin: 01/17/18 06:24 Dose: 5,000 unit Insulin Aspart (Novolog) [address] [facility] PRN Reason: Protocol Last Admin: 01/16/18 21:56 Dose: 1 units Insulin Aspart (Novolog Vial Sliding Scale -) 1 vial SQ TIDAC [facility] PRN Reason: Protocol Last Admin: 01/17/18 06:26 Dose: 18 unit Insulin Detemir (Levemir Vial) 15 units SQ ACBK [facility] Last Admin: 01/17/18 06:24 Dose: 15 unit Methylprednisolone Sodium Succinate (Solu-Medrol -) 40 mg IVPUSH BID [facility] Last Admin: 01/17/18 09:00 Dose: 40 mg Metoprolol Succinate (Toprol Xl -) 25 mg PO DAILY [facility] Last Admin: 01/17/18 09:00 Dose: 25 mg Montelukast Sodium (Singulair -) [address] [facility] Last Admin: 01/16/18 21:55 Dose: 10 mg Ranolazine (Ranexa -) 500 mg PO BID [facility] Last Admin: 01/17/18 09:00 Dose: 500 mg Senna (Senna -) 2 tab PO PRN PRN Reason: CONSTIPATION A/P Acute Asthma Exacerbation improving CAD HTN DM Hyperlipidemia - can change steroids to PO prednisone 40mg daily x 4 more days and d/c - inhaled bronchodilators standing and PRN - singulair - monitor peak flow - glucose control while on systemic steroids - O2 as needed - DVT prophylaxis - outpt PFTs - can d/c home from pulmonary standpoint Problem List - Problems (1) Acute asthma exacerbation Code(s): J45.901 - UNSPECIFIED ASTHMA WITH (ACUTE) EXACERBATION Qualifiers: Asthma severity: moderate (2) Diabetes Code(s): E11.9 - TYPE 2 DIABETES MELLITUS WITHOUT COMPLICATIONS Qualifiers: Diabetes mellitus type: type 2 (3) HTN (hypertension) Code(s): I10 - ESSENTIAL (PRIMARY) HYPERTENSION Qualifiers: Hypertension type: essential hypertension Qualified Code(s): I10 - Essential (primary) hypertension (4) Hyperlipidemia Code(s): E78.5 - HYPERLIPIDEMIA, UNSPECIFIED Qualifiers: Hyperlipidemia type: pure hypercholesterolemia Qualified Code(s): E78.00 - Pure hypercholesterolemia, unspecified; E78.0 - Pure hypercholesterolemia
[2018-01-17] MEDS ORDERED: INSULIN (NOVOLOG) ASPART 100 UNITS/ML 10ML VIAL ONE (11:28)
--- NOTE | 2018-01-17 13:11 | PN ---
Progress Note, Physician History of Present Illness: Patient is a 72 year old female (b. Angela) with a PMH of CAD (s/p stent), HTN, HLD, NIDDM, morbid obesity, and asthma, who presents to our ED c/o worsening shortness of breath and cough. Patient states she has been having intermittently productive (whitish sputum) cough for 2-3 weeks with some dyspnea on exertion for 2-3 months. Endorses associated pleuritic chest pain. Patient returned from a trip to [facility] today and daughter brought her to ED for evaluation. As per EMR, patient evaluated in 03/2017 for pre-syncope at which time cardiac enzymes were negative and ECG showed no arrythymia - Current Medication List Current Medications: Active Medications Albuterol Sulfate (Ventolin 0.083% Nebulizer Soln -) 1 amp NEB Q4H PRN PRN Reason: ASTHMA Last Admin: 01/15/18 12:00 Dose: 1 amp Albuterol/Ipratropium (Duoneb -) 1 amp NEB RQID [facility] Last Admin: 01/17/18 08:00 Dose: 1 amp Aspirin (Asa -) 81 mg PO DAILY [facility] Last Admin: 01/17/18 09:00 Dose: 81 mg Atorvastatin Calcium (Lipitor -) 40 mg PO HS [facility] Last Admin: 01/16/18 21:55 Dose: 40 mg Benzocaine/Menthol (Cepacol Lozenge -) 1 each MM PRN PRN PRN Reason: SORE THROAT Docusate Sodium (Colace -) 100 mg PO TID [facility] Last Admin: 01/17/18 06:24 Dose: 100 mg Furosemide (Lasix Injection -) 40 mg IVPUSH DAILY [facility] Last Admin: 01/17/18 09:00 Dose: 40 mg Glipizide (Glucotrol -) 10 mg PO DAILY@0700 [facility] Last Admin: 01/17/18 06:24 Dose: 10 mg Glipizide (Glucotrol -) 5 mg PO DAILY@1630 [facility] Last Admin: 01/16/18 16:56 Dose: 5 mg Guaifenesin (Diabetic Tussin Dm -) 5 ml PO Q4H PRN PRN Reason: COUGH Last Admin: 01/17/18 06:36 Dose: 5 ml Heparin Sodium (Porcine) (Heparin -) 5,000 unit SQ TID [facility] Last Admin: 01/17/18 06:24 Dose: 5,000 unit Insulin Aspart (Novolog) 1 units SQ HS [facility] PRN Reason: Protocol Last Admin: 01/16/18 21:56 Dose: 1 units Insulin Aspart (Novolog Vial Sliding Scale -) 1 vial SQ TIDAC [facility] PRN Reason: Protocol Last Admin: 01/17/18 11:48 Dose: 14 unit Insulin Detemir (Levemir Vial) 15 units SQ ACBK [facility] Last Admin: 01/17/18 06:24 Dose: 15 unit Methylprednisolone Sodium Succinate (Solu-Medrol -) 40 mg IVPUSH BID [facility] Last Admin: 01/17/18 09:00 Dose: 40 mg Metoprolol Succinate (Toprol Xl -) 25 mg PO DAILY [facility] Last Admin: 01/17/18 09:00 Dose: 25 mg Montelukast Sodium (Singulair -) 10 mg PO HS [facility] Last Admin: 01/16/18 21:55 Dose: 10 mg Ranolazine (Ranexa -) 500 mg PO BID [facility] Last Admin: 01/17/18 09:00 Dose: 500 mg Senna (Senna -) 2 tab PO PRN PRN Reason: CONSTIPATION - Objective Vital Signs: Vital Signs Temperature 97.7 F 01/17/18 09:00 Pulse Rate 81 01/17/18 10:49 Respiratory Rate 18 01/17/18 09:00 Blood Pressure 134/67 01/17/18 09:00 O2 Sat by Pulse Oximetry (%) 92 L 01/17/18 10:49 Labs: CBC, BMP 01/17/18 05:35 01/17/18 05:35 Problem List - Problems (1) Acute asthma exacerbation Assessment/Plan: Continue bronchodilators and steroids (now PO) per websphere commerce developer. The importance of weight loss and increase in exercise was discussed. Recommend sleep studies to r/o sleep apnea. O2 decreased from 93% to 86 % while walking; reevlauate fegarding need for home O2. Code(s): J45.901 - UNSPECIFIED ASTHMA WITH (ACUTE) EXACERBATION Qualifiers: Asthma severity: moderate (2) Atypical chest pain Code(s): R07.89 - OTHER CHEST PAIN (3) Diabetes Code(s): E11.9 - TYPE 2 DIABETES MELLITUS WITHOUT COMPLICATIONS Qualifiers: Diabetes mellitus type: type 2 (4) Dizziness Code(s): R42 - DIZZINESS AND GIDDINESS (5) HTN (hypertension) Code(s): I10 - ESSENTIAL (PRIMARY) HYPERTENSION Qualifiers: Hypertension type: essential hypertension Qualified Code(s): I10 - Essential (primary) hypertension (6) Hyperlipidemia Code(s): E78.5 - HYPERLIPIDEMIA, UNSPECIFIED Qualifiers: Hyperlipidemia type: pure hypercholesterolemia Qualified Code(s): E78.00 - Pure hypercholesterolemia, unspecified; E78.0 - Pure hypercholesterolemia (7) Obese Code(s): E66.9 - OBESITY, UNSPECIFIED (8) Syncope, near Code(s): R55 - SYNCOPE AND COLLAPSE (9) Sleep apnea Code(s): G47.30 - SLEEP APNEA, UNSPECIFIED
[2018-01-17 13:34] VITALS: BP 107/58; TEMP 97.9
[2018-01-17] MEDS ORDERED: LOSARTAN POTASSIUM 25 MG TABLET PO SCH (14:00)
[2018-01-17 14:49] VITALS: PULSE 98
--- NOTE | 2018-01-17 16:27 | PN ---
Teaching Attending Note Name of Resident: Gage Eddy ATTENDING PHYSICIAN STATEMENT I saw and evaluated the patient. I reviewed the resident's note and discussed the case with the resident. I agree with the resident's findings and plan as documented. SUBJECTIVE: Patient has no complaints. OBJECTIVE: Vital Signs Period Temp Pulse Resp BP Sys/Fong Pulse Ox Last 24 Hr 97.4 F-97.9 F 59-98 18-18 107-151/57-77 92-98 HEART: S1S2, RRR LUNGS: Clear ABDOMEN: Obese, soft, non-tender, non-distended, normal BS EXTREMITIES: No edema Laboratory Results - last 24 hr 01/16/18 01/16/18 01/17/18 16:55 20:58 05:35 WBC 13.6 H D RBC 5.15 Hgb 12.9 Hct 40.7 MCV 79.1 L MCH 25.0 L MCHC 31.6 L RDW 15.4 Plt Count 247 MPV 8.6 Neutrophils % No Result Required. Neutrophils % (Manual) 81.8 Band Neutrophils % 0.0 Lymphocytes % No Result Required. Lymphocytes % (Manual) 15.2 Monocytes % (Manual) 3 L Eosinophils % (Manual) 0.0 Basophils % (Manual) 0.0 Myelocytes % (Man) 0 Promyelocytes % (Man) 0 Blast Cells % (Manual) 0 Nucleated RBC % 0 Metamyelocytes 0 Platelet Estimate Normal Poikilocytosis 1+ Tear Drop Cells 1+ Ovalocytes 1+ Sodium Potassium Chloride Carbon Dioxide Anion Gap BUN Creatinine Creat Clearance w eGFR POC Glucometer 363 326 Random Glucose Calcium Phosphorus Magnesium Total Bilirubin AST ALT Alkaline Phosphatase Total Protein Albumin 01/17/18 01/17/18 01/17/18 05:35 06:05 11:01 WBC RBC Hgb Hct MCV MCH MCHC RDW Plt Count MPV Neutrophils % Neutrophils % (Manual) Band Neutrophils % Lymphocytes % Lymphocytes % (Manual) Monocytes % (Manual) Eosinophils % (Manual) Basophils % (Manual) Myelocytes % (Man) Promyelocytes % (Man) Blast Cells % (Manual) Nucleated RBC % Metamyelocytes Platelet Estimate Poikilocytosis Tear Drop Cells Ovalocytes Sodium 136 Potassium 4.3 Chloride 96 L Carbon Dioxide 35 H Anion Gap 5 L BUN 26 H Creatinine 0.7 Creat Clearance w eGFR > 60 POC Glucometer 362 285 Random Glucose 339 H* Calcium 8.7 Phosphorus 4.7 Magnesium 2.4 Total Bilirubin 0.6 D AST 7 L ALT 25 Alkaline Phosphatase 91 Total Protein 7.2 Albumin 3.3 L Current Medications Generic Name Dose Route Start Last Admin Trade Name Freq PRN Reason Stop Dose Admin Albuterol Sulfate 1 amp 01/12/18 22:18 01/15/18 12:00 Ventolin 0.083% Nebulizer Soln - NEB 1 amp Q4H PRN Administration ASTHMA Albuterol/Ipratropium 1 amp 01/12/18 22:30 01/17/18 12:00 Duoneb - NEB 1 amp RQID STEVEN Administration Aspirin 81 mg 01/13/18 10:00 01/17/18 09:00 Asa - PO 81 mg DAILY STEVEN Administration Atorvastatin Calcium 40 mg 01/13/18 22:00 01/16/18 21:55 Lipitor - PO 40 mg HS STVEEN Administration Benzocaine/Menthol 1 each 01/14/18 11:05 Cepacol Lozenge - MM PRN PRN SORE THROAT Docusate Sodium 100 mg 01/16/18 14:00 01/17/18 14:00 Colace - PO 100 mg TID STEVEN Administration Furosemide 40 mg 01/12/18 22:21 01/17/18 09:00 Lasix Injection - IVPUSH 40 mg DAILY STEVEN Administration Glipizide 10 mg 01/15/18 07:00 01/17/18 06:24 Glucotrol - PO 10 mg DAILY@0700 STEVEN Administration Glipizide 5 mg 01/14/18 16:30 01/16/18 16:56 Glucotrol - PO 5 mg DAILY@1630 STEVEN Administration Guaifenesin 5 ml 01/13/18 22:39 01/17/18 14:00 Diabetic Tussin Dm - PO 5 ml Q4H PRN Administration COUGH Heparin Sodium (Porcine) 5,000 unit 01/13/18 06:00 01/17/18 14:00 Heparin - SQ 5,000 unit TID STEVEN Administration Insulin Aspart 1 units 01/14/18 22:00 01/16/18 21:56 Novolog SQ 1 units HS STEVEN Administration Protocol Insulin Aspart 1 vial 01/15/18 11:59 01/17/18 11:48 Novolog Vial Sliding Scale - SQ 14 unit TIDAC STEVEN Administration Protocol Insulin Detemir 15 units 01/14/18 07:00 01/17/18 06:24 Levemir Vial SQ 15 unit ACBK STEVEN Administration Losartan Potassium 25 mg 01/17/18 14:00 01/17/18 14:20 Cozaar - PO 25 mg DAILY STEVEN Administration Methylprednisolone Sodium Succinate 40 mg 01/16/18 10:00 01/17/18 09:00 Solu-Medrol - IVPUSH 40 mg BID STEVEN Administration Metoprolol Succinate 25 mg 01/13/18 10:00 01/17/18 09:00 Toprol Xl - PO 25 mg DAILY STEVEN Administration Montelukast Sodium 10 mg 01/13/18 22:00 01/16/18 21:55 Singulair - PO 10 mg HS STEVEN Administration Ranolazine 500 mg 01/13/18 10:00 01/17/18 09:00 Ranexa - PO 500 mg BID STEVEN Administration Senna 2 tab 01/16/18 22:00 Senna - PO HS PRN CONSTIPATION ASSESSMENT AND PLAN: This is a 73 year old woman with a history of asthma, CAD, HTN, hyperlipidemia, type 2 DM who presented to the ED with shortness of breath and wheezing. 1. Acute hypoxic respiratory failure secondary to asthma exacerbation - Change SoluMedrol to Prednisone - Continue Singulair, DuoNeb, albuterol nebs as needed - O2 saturation 95% on room air at rest, 86% on room air with ambulation 2. Acute diastolic heart failure - Improved 3. CAD, history of stent - Continue aspirin, Toprol XL, Lipitor, Ranexa 4. HTN - Continue Toprol XL 5. Hyperlipidemia - Continue Lipitor 6. Type 2 diabetes mellitus, uncontro - Continue Levemir, Glucotrol 7. Morbid obesity with BMI 40.2 8. Disposition - Ok for discharge home with oxygen
--- NOTE | 2018-01-17 19:08 | DS ---
Physical Exam: SUBJECTIVE: Patient seen and examined -no major overnight events; VSS, afebrile; still with productive cough, however improving; no other complaints; denies IRVING, f/c//n/v/d, cp, sob, ab pain, back pain; tolerating PO feeds. d/c home today OBJECTIVE: Vital Signs Intake & Output 01/14/18 01/15/18 01/16/18 01/17/18 23:59 23:59 23:59 23:59 Intake Total 1050 1350 1670 340 Output Total 1550 Balance 1050 -200 1670 340 Weight 87.6 kg 87.543 kg 87.203 kg 86.806 kg Period Temp Pulse Resp BP Sys/Fong Pulse Ox Last 24 Hr 97.4 F-97.9 F 59-98 18-18 107-151/58-77 92-98 PHYSICAL EXAM GENERAL: Middle aged woman, NAD, A&Ox3 HEAD: NCAT EYES: PERRL, extraocular movements intact, sclera anicteric, conjunctiva clear. No ptosis. ENT: Ears normal, nares patent, oropharynx clear without exudates, MMM NECK: Trachea midline, full range of motion, supple. LUNGS: Mildly decreased air entry in upper airways. No wheezing . No crackles, rhonchi or accessory muscle use. HEART: Regular rate and rhythm, S1, S2 without murmur, rub or gallop. ABDOMEN: Globular. Soft, nontender, nondistended, normoactive bowel sounds, no guarding, no rebound, no hepatosplenomegaly, no masses. EXTREMITIES: 2+ pulses, warm, well-perfused, trace pedal edema BL. NEUROLOGICAL: Cranial nerves II through XII grossly intact. Normal speech, gait not observed. PSYCH: Normal mood, normal affect SKIN: Warm, dry, normal turgor, no rashes or lesions noted LABS Laboratory Results - last 24 hr CBC, BMP 01/17/18 05:35 01/17/18 05:35 01/16/18 01/17/18 01/17/18 20:58 05:35 05:35 WBC 13.6 H D RBC 5.15 Hgb 12.9 Hct 40.7 MCV 79.1 L MCH 25.0 L MCHC 31.6 L RDW 15.4 Plt Count 247 MPV 8.6 Neutrophils % No Result Required. Neutrophils % (Manual) 81.8 Band Neutrophils % 0.0 Lymphocytes % No Result Required. Lymphocytes % (Manual) 15.2 Monocytes % (Manual) 3 L Eosinophils % (Manual) 0.0 Basophils % (Manual) 0.0 Myelocytes % (Man) 0 Promyelocytes % (Man) 0 Blast Cells % (Manual) 0 Nucleated RBC % 0 Metamyelocytes 0 Platelet Estimate Normal Poikilocytosis 1+ Tear Drop Cells 1+ Ovalocytes 1+ Sodium 136 Potassium 4.3 Chloride 96 L Carbon Dioxide 35 H Anion Gap 5 L BUN 26 H Creatinine 0.7 Creat Clearance w eGFR > 60 POC Glucometer 326 Random Glucose 339 H* Calcium 8.7 Phosphorus 4.7 Magnesium 2.4 Total Bilirubin 0.6 D AST 7 L ALT 25 Alkaline Phosphatase 91 Total Protein 7.2 Albumin 3.3 L 01/17/18 01/17/18 01/17/18 06:05 11:01 16:05 WBC RBC Hgb Hct MCV MCH MCHC RDW Plt Count MPV Neutrophils % Neutrophils % (Manual) Band Neutrophils % Lymphocytes % Lymphocytes % (Manual) Monocytes % (Manual) Eosinophils % (Manual) Basophils % (Manual) Myelocytes % (Man) Promyelocytes % (Man) Blast Cells % (Manual) Nucleated RBC % Metamyelocytes Platelet Estimate Poikilocytosis Tear Drop Cells Ovalocytes Sodium Potassium Chloride Carbon Dioxide Anion Gap BUN Creatinine Creat Clearance w eGFR POC Glucometer 362 285 379 Random Glucose Calcium Phosphorus Magnesium Total Bilirubin AST ALT Alkaline Phosphatase Total Protein Albumin Microbiology 01/14/18 13:00 Nasopharyngeal Swab Influenza Types A,B Antigen (FELIPA) - Final 01/14/18 13:00 Nasopharyngeal Swab - Final ECHO 01/14 - LV function normal, EF 65-70%, RV function normal, mild TR, RV pressure normal CXR 01.12 - Since 04/06/2017, 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 Correlation recommended. CTA 01/12 - IMPRESSION: Limited examination, as described above with very poor enhancement of the distal pulmonary artery branches, in particular in the lower lobes. Otherwise, there is no evidence of a pulmonary embolus in the main pulmonary artery and its proximal bifurcations, bilaterally. Mild cardiomegaly. Borderline right paratracheal lymph node which is nonspecific. Scattered areas of atelectatic changes in the lung without gross evidence of focal infiltrates. Partially included over distended gallbladder CXR 01/15 - No active pulmonary dz Consults: Pulm - Seen by Dr. Herr Cardiology - Seen by Dr. Chaidez Endocrine - Seen by Dr. Jimenez [facility]: prehospital: 72 y/o f with past medical h/o asthma and cad came to hospital because of sob. patient states that she has noticed sob, wheezing and cough from last two week which is progressively increasing. before able to walk 1 block but from 2 days only 5 feet, denies orthopnea, paroxysmal nocturnal dyspnea, has reported mild increse in swelling in legs. States wheezing has also increased in last two days. Reports cough has also increased in last two days, produces white phlem, no fever, no chills, no chest pain. States she is complaint with her inhalers and has used it many times in last 2 days but it didn't help. Also report asthma exabration last year for which she was admitted in hospital, has no pets , not allergic to any thing. Patient states that today she came back from [facility]. ER course was notable for: (1)cbc, cmp, bnp (2)CTA chest (3) Hospital: VS notable for mild hypoxia to 92% on RA on admission. Labs notable for BNP of 1400. CTA and CXR ordered, results noted above. Cardiology and pulm consulted. Pt started on duonebs, ventolin prn, medrol 60mg q8h, singulair and lasix 40 IV with improvement in respiratory symptoms. Echo ordered with resulted noted above. Pt started on levemir 15u ACBK, home glipizide dosing (10 +5) and endocrine consulted. BGMs notable for 400-500 during day 2 of admission in setting of IV steroids. Repeat labs notable for K 5.3, no ekg changes noted. Pt started on steroid taper, intermittently hypoxic on NC during admission with poorly controlled sugars, persistent cough and trace wheezing noted on physical exam. Repeat K on 01/15 was 3.2, repleted. Pt continued tolerating steroid taper, with better BG control. Pt started on PO streroids on 01/16 with continuing improvement in respiratory status. Pt discharged on 4 day steroid course, albuterol nebs, singulair and pulm f/u. Attempt to discharge on low dose O2, however pt denied for insurance coverage. Family elected for discharge home without O2 and simple ventolin nebs after being offered the option to pay out of pocket for O2. Date of Admission:01/12/18 Date of Discharge: 01/17/18 Pt is medically stable and cleared for discharge with outpt f/u with pulmonology in one week. Minutes to complete discharge: 35 Discharge Summary Reason For Visit: SOB Condition: Good - Instructions Diet, Activity, Other Instructions: During your stay at [facility], you were treated for a suspected asthma exacerbation. You received medication to help support your breathing and have since improved. You are being discharged home with outpatient follow-up with our fruit thinner machine operator, Dr. Herr. Medications: The following medications were added to your home regimen. Please take them as specified below: Aspirin 81mg, take one pill by mouth once a day Lipitor 40mg, take one pill by mouth once a day when you go to bed. Levemir, take one injection of 15 units in the morning upon waking up. Please check your blood sugar regularly and record the values. Singulair 10mg, take one dose by mouth once a day at bedtime. Prednisone 40mg, take four pills by mouth once a day for the next four days (01/18 -01/21). Then stop taking this medication. Please take colace three times a day by mouth if you experience constipation. This medication is available over the counter Please stop taking the following medication: Metformin Please continue to take all other home medications as previously directed. Follow-ups: Please follow-up with your primary care physician in one week for further management of your medications. Please call their office to schedule an appointment. Please call within one week to schedule an appointment. Please follow-up with our fruit thinner machine operator, Dr. Herr, in two weeks for your continuing pulmonary care. His contact number has been provided in this packet. Please call his office to make the appointment Please follow-up with our digitizer operator, Dr. Anthony, in one week for your continuing diabetes management. His contact number has been provided in this packet. Please call his office to make the appointment Please check your blood sugars every day before meals, upon waking and when you go to sleep and keep an accurate record of these values. Please bring them with you on your next visit to your PMD or Dr. Anthony. Diet/Exercise: Please abide by the diabetic diet guidelines provided in this packet. Please use home oxygen when ambulating. Please discuss how long you will need home O2 with your fruit thinner machine operator on your follow-up visit. Please return to the hospital if you experience any of the following symptoms: - Worsening shortness of breath, wheezing or inability to catch your breath - Persistent fever/chills >3 days - Any new or concerning symptoms Referrals: Kenneth Herr MD [Staff Physician] - 2 Weeks Yolanda Fajardo MD [Primary Care Provider] - 1 Week Marc Jimenez MD [Staff Physician] - 1 Week Disposition: HOME - Home Medications Comprehensive Discharge Medication List: Ambulatory Orders Albuterol Sulfate Inhaler - [Ventolin HFA Inhaler -] 2 inh PO BID 01/14/18 Glipizide 5 mg PO DAILY 01/14/18 Glipizide 10 mg PO DAILY 01/14/18 Metoprolol Succinate [Toprol Xl] 25 mg PO DAILY 01/14/18 Ranolazine [Ranexa] 500 mg PO Q12H 01/14/18 Albuterol 0.083% Nebulizer Cony [Ventolin 0.083% Nebulizer Soln -] 1 neb NEB Q4H #60 vial 01/17/18 Albuterol 0.083% Nebulizer Cony [Ventolin 0.083% Nebulizer Soln -] 1 neb NEB Q4H #60 vial 01/17/18 Aspirin [ASA -] 81 mg PO DAILY #30 tab.chew 01/17/18 Atorvastatin Ca [Lipitor] 40 mg PO HS #30 tablet 01/17/18 Docusate Sodium [Colace -] 100 mg PO TID capsule 01/17/18 Insulin Detemir [Levemir Flextouch] 15 unit SQ ACBK #30 insuln.pen 01/17/18 Miscellaneous Medical Supply [Outpatient Order] 1 each ASDIR #1 misc Montelukast Na [Singulair -] 10 mg PO HS #30 tablet 01/17/18 Prednisone 40 mg PO DAILY #16 tablet 01/17/18 This patient is new to me today: No Emergency Visit: Yes ED Registration Date: 01/12/18 Care time: The patient presented to the Emergency Department on the above date and was hospitalized for further evaluation of their emergent condition. Critical Care patient: No - Discharge Referral Referred to [facility] No
== END 2018-01-17 18:47 | disposition home or self-care (01) | DRG 291 ==
LOC: JER 14:50 → JERBED 21:21 → J4W 01-13 00:12 → J4S 01-13 17:29
PROVIDERS: ADMIT Internal Medicine; ATTEND Internal Medicine
DX: I11.0 Hypertensive heart disease with heart failure (principal); J96.01 Acute respiratory failure with hypoxia; J45.901 Unspecified asthma with (acute) exacerbation; Z68.41 Body mass index [BMI] 40.0-44.9, adult; I50.33 Acute on chronic diastolic (congestive) heart failure; E11.65 Type 2 diabetes mellitus with hyperglycemia; E66.01 Morbid (severe) obesity due to excess calories; E87.5 Hyperkalemia; E78.5 Hyperlipidemia, unspecified; I25.10 Atherosclerotic heart disease of native coronary artery without angina pectoris; Z98.61 Coronary angioplasty status; R07.89 Other chest pain; R42 Dizziness and giddiness; R55 Syncope and collapse; G47.30 Sleep apnea, unspecified; K59.00 Constipation, unspecified; E87.6 Hypokalemia
CPT/HCPCS: 36415; 71045-TC-FY; 71275-TC; 80048; 80053; 80061; 82550; 82947; 82962; 83036; 83721; 83735; 83880; 84100; 84484; 85025; 87804; 93005; 93010; 93306-TC; 94150; 94640; 94761; 97116-GP; 97161-GP; 99284-25; J0131; J1644; J7620